=== PATIENT | male | born 1940 | race Caucasian/White ===

== ENCOUNTER → 2019-06-12 | Outpatient (CLI) | payer MEDICARE, OTHER, SELFPAY ==
[2019-06-12 08:11] VITALS: BMI 30.9
--- NOTE | 2019-06-12 08:30 | RAD_ITS ---
STUDY: X-RAY - LEFT HAND, ATTENTION THIRD FINGER REASON FOR EXAM: Male, 78 years old. Pain following injury. TECHNIQUE: 3 view(s) of the finger were obtained. COMPARISON: None. FINDINGS: Normal metacarpal head. Normal metacarpophalangeal joint. Normal proximal phalanx. Normal middle phalanx. Normal distal phalanx. Normal proximal interphalangeal joint. Normal distal interphalangeal joint. Soft tissue swelling. RAD/Finger(s) Min 2 Views IMPRESSION: Soft tissue swelling. Electronically Signed: Lionel Emmanuel, at 9:17 EDT , Service support ,
== END | disposition home or self-care (01) ==
LOC: HPRAD 08:27
PROVIDERS: Family Provider Internal Medicine; PCP Internal Medicine; Referring Provider Physician Assistant; Visit Provider Physician Assistant
DX: S69.92XA Unspecified injury of left wrist, hand and finger(s), initial encounter (principal)
CPT/HCPCS: 73140

== ENCOUNTER 2020-02-29 01:32 | Inpatient (IN) | payer MEDICARE, OTHER, SELFPAY ==
[2020-01-13 08:59] VITALS: BMI 29.0
[2020-02-29] VITALS (15 sets, daily range): BP systolic 137–175; BP diastolic 67–92; PULSE 61–97; RESP 15–18; TEMP 36.6–37.4; O2SAT 94–99; BMI 29.0; BMI 29.5
--- NOTE | 2020-02-29 01:47 | EKG12_ITS ---
Test Reason : CP Blood Pressure : / mmHG Vent. Rate : 062 BPM Atrial Rate : 062 BPM P-R Int : 196 ms QRS Dur : 096 ms QT Int : 410 ms P-R-T Axes : 061 -07 026 degrees QTc Int : 416 ms Sinus rhythm with occasional Premature ventricular complexes Otherwise normal ECG Confirmed by ANMOL AMEZCUA, SABRINA ([id number]), map editor JOEL MEDEIROS ([id number]) on 03/02/2020 9:00:01 AM Referred By: SHYANN Confirmed By:SABRINA COREA MD
--- NOTE | 2020-02-29 01:47 | CT_ITS ---
STUDY: CT ABDOMEN AND PELVIS WITHOUT CONTRAST REASON FOR EXAM: Male, 79 years old patient with epigastric pain with nausea and vomiting since 5 pm. Past surgical history of appendectomy. RADIATION DOSAGE (If Supplied By Facility): CTDIvol = ( 12.25 ) mGy, DLP = ( 633.74 ) mGycm TECHNIQUE: Transaxial images were obtained from the dome of the diaphragm to the symphysis pubis without oral contrast, and without intravenous contrast. Sagittal and coronal images were reconstructed. Individualized dose optimization techniques were used for this CT. COMPARISON: Prior comparison studies are not available for review at this time. FINDINGS: There is bilateral basilar heterogeneous ground glass attenuation in addition to subsegmental atelectasis. The visualized portions of the heart are within normal limits. Normal liver. Normal gallbladder and extrahepatic biliary system. Normal spleen. There is diffuse enlargement of the pancreas with silvana-pancreatic edema suggesting acute pancreatitis. There appears to be peripancreatic fluid. There is acute inflammation adjacent to the pancreas. Normal bilateral adrenal glands. There is an exophytic cyst arising from lower pole right kidney measuring approximately 3.8 cm in greatest dimension. There is no evidence for hydronephrosis, hydroureter or radiopaque ureteral calculus. Normal left kidney. There is fluid filled stomach. There appears to be an ileus as well as abnormal thickening of the [place] of the duodenum probably reflexive and related to the acute pancreatitis. There is no evidence for dilated bowel or pneumoperitoneum. The small bowel otherwise has a normal appearance. Stool is visible throughout the colon with scattered diverticula. There are surgical clips in the region of the appendix consistent with a prior appendectomy. There is minimal atherosclerotic calcification of the abdominal aorta with elongation and tortuosity, but without a demonstrated aneurysm. There is venous distention of the inferior vena cava (IVC). Normal retroperitoneum. Normal urinary bladder. Normal visualized prostate gland. Normal abdominal wall. There are diffuse degenerative changes of the visualized lumbar spine. There is severe acquired canal stenosis at L4-5. CT/Abdomen/Pelvis without Cont IMPRESSION: 1. CT findings are consistent with acute pancreatitis with associated ileus of the duodenum. 2. Bilateral basilar dependent and subsegmental atelectasis. Electronically Signed: Adriana Ogden MD at 3:14 EDT , Service support ,
--- NOTE | 2020-02-29 01:48 | ED.VIS.GEN ---
History of Present Illness Chief Complaint: Abd Pain Informant: Patient Narrative: He stated he had gradual onset of diffuse abdominal pain. He describes an aching sensation. Moderate in severity. He tried Tums and NSAIDs with minimal relief. He had one episode of emesis. Normal bowel movements. History of remote appendectomy. No history of bowel obstruction. It is diffuse in nature. It radiates into his chest to some degree. Denies any urinary symptoms. No other associated symptoms. He is never had a thing like this before. 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 Comment: RFA 03/17/2008 (2) Essential (primary) hypertension Status: Chronic Past Medical History - Allergies and Home Meds Allergies/Adverse Reactions: Allergies Penicillins Allergy (Verified 02/29/20 01:40) Unknown Sulfa (Sulfonamide Antibiotics) Allergy (Verified 02/29/20 01:40) Unknown Primary Care Physician: Hector Castro MD [Primary Care Provider] - Prior records reviewed: Yes Past Medical History: - - See problem list Surgical History: appendectomy Lives: With Family Smoking Status: Never smoker Alcohol: None Drugs: None - Family History Maternal Family History: Family History (Last Reviewed 01/13/20 @ 09:[address] Rich Mendoza MD) Mother CAD (coronary artery disease) Father Cancer Family History: Reports: No pertinent history Review of Systems General: Denies: Chills, Fever, Sweats Eyes: Denies: Visual changes - bilaterally, Diplopia ENT: Denies: Rhinorrhea, Sore throat Cardiovascular: Reports: Chest pain. Denies: Palpitations Respiratory: Denies: Dyspnea, Cough, Dyspnea on exertion Gastrointestinal: Reports: Abdominal pain, Nausea, Vomiting. Denies: Diarrhea, Melena, Hematochezia Genitourinary: Denies: Dysuria, Hematuria, Frequency Musculoskeletal: Denies: Back pain, Extremity Pain Skin: Denies: Rash, Wounds Neurological: Denies: Headache, Weakness, Numbness Physical Exam Vital Signs/Narrative: Vital Signs Temp Pulse Resp BP 02/29/20 01:34 98.5 F 64 15 158/76 H General: Well nourished, Well developed, No Acute Distress Head: Normocephalic, Atraumatic Eyes: Perrl, EOMI ENT: Moist mucous membranes, No rhinorrhea Neck: Supple, Nontender Cardiovascular: Regular rate, Regular rhythm, No murmurs Respiratory: No distress, CTA bilaterally, Chest nontender Abdomen: Soft, Nondistended, Normal bowel sounds, Tender - Diffuse tenderness throughout the whole abdomen. Negative for: Guarding, Rebound tenderness, Mass Back: Nontender, Normal Inspection Extremities: Nontender, No edema Skin: Normal color, No rash Neurological: Alert, Oriented x3, Cranial nerves II-XII grossly intact, Normal Strength, Normal Sensation Psychological: Normal affect, Normal Mood Diagnostic/Tx/Re-eval - Medical Decision Making Patient given IV fluids Zofran and morphine. Lab work and CT abdomen pelvis as well as EKG obtained. Lab work shows an elevation in his white blood cell count and a acute pancreatitis with lipase greater than 20,000. He also has an associated bump in his LFTs including bilirubin. This may be secondary to a gallstone that is not seen on CAT scan. CT shows acute pancreatitis with associated ileus with inflammatory changes. The patient does drink 2 beers per day chronically. No history of pancreatitis or alcoholism. He does still have his gallbladder. It is conceivable that he has a gallstone pancreatitis. However gallbladder was visualized on CAT scan and appears to be normal with no stones seen. Patient discussed with the hospitalist. He will be admitted. He will likely need further evaluation as an inpatient including possible ERCP versus MRCP versus ultrasound to diagnose a gallstone related pancreatitis. ED Disposition - Plan for ED Patient: Disposition: Acute Care Hospital [facility] Diagnosis: Acute pancreatitis, Transaminitis, Ileus
[2020-02-29] MEDS: Ondansetron 4 MG/2 ML Vial IV (02:08)
[2020-02-29] MEDS: Morphine 4 MG/ML Syringe IV (02:13)
[2020-02-29 02:26] LABS: Absolute Lymphocyte Count 0.42 X10^3/uL (0.83-4.51); Absolute Neutrophil Count 10.6 X10^3/uL (2.0-7.7); Basophil# 0.02 X10^3/uL; Basophil% 0.2 % (0-1); Eosinophil# 0.01 X10^3/uL; Eosinophils% 0.1 % (0-5); Hematocrit 43.1 % (40-54); Hemoglobin 14.8 g/dL (13.0-16.5); Lymphocyte # 0.42 X10^3/ul (4.0); Lymphocyte % 3.6 % (19-41); Mean Corp Hgb Conc 34.3 g/dL (32-36); Mean Corpuscular Hgb 32.7 pg (27.0-32.0); Mean Corpuscular Volume 95.4 fL (80-94); Mean Platelet Vol. 10.9 fl (6.2-12.0); Monocyte# 0.62 X10^3/uL; Monocyte% 5.3 % (0-10); NRBC Flagged by Analyzer 0 % (0-5); Neutrophil # 10.56 X10^3/uL (2.7-7.7); Neutrophil % 90.5 % (47-70); POSITIVE DIFFERENTIAL YES; Platelet Count 144 K/mm3 (150-450); RBC Distribution Width CV 12.9 % (11.6-14.6); RBC Distribution Width SD 44.8 fl (35.1-43.9); Red Blood Count 4.52 M/mm3 (4.6-6.2); White Blood Count 11.7 K/mm3 (4.4-11.0)
[2020-02-29 02:54] LABS: Bacteria 0 SEEN /hpf (None Seen); Mucous, Urine 0 SEEN /hpf (<or=2+); Red Blood Cells-Urine 0 SEEN /hpf (0-5); Squamous Epithelial Cells - UA 0 SEEN /hpf (0-5); White Blood Cells 0 SEEN /hpf (0-5)
[2020-02-29 02:55] LABS: ALB/GLOB Ratio 1.2 RATIO (0.9-2.4); AST(SGOT) 480 U/L (15-37); Alanine Aminotransfer ALT/SGPT 401 U/L (16-61); Alkaline Phosphatase 121 U/L (45-117); Anion Gap 6 (5-15); BUN 17 mg/dL (7-18); BUN/Creat Ratio 17.4 RATIO (10-20); Calcium,Total 9.2 mg/dL (8.5-10.1); Chloride 107 mmol/L (98-107); Creatinine, Serum 0.98 mg/dL (0.70-1.30); EST Glomerular Filtration Rate 79 mL/min (>60); Est Glom Filt Rate - Afr Amer 96 mL/min (>60); Estimated Creatinine Clearance 69.29 ml/min; Globulin 3.2 g/dL (2.2-4.2); Glucose 169 mg/dL (74-106); Lipase 21718 U/L (73-393); Potassium 3.6 mmol/L (3.5-5.1); Protein, Total 7.2 g/dL (6.4-8.2); Sodium Level 139 mmol/L (136-145)
[2020-02-29 02:55] LABS: Color, Urine Yellow (Yellow); Glucose, Dipstick 50 mg/dl (Normal); Ketone-Dipstick 15 mg/dl (Negative); Leukocyte Esterase-Dipstick Negative /ul (Negative); Nitrite-Dipstick Negative (Negative); Occult Blood-Urine 10 /ul (Negative); Protein-Dipstick 30 mg/dl (Negative); Urine Bilirubin Dipstick Negative (Negative); Urine Clarity Sl. Cloudy (Clear); Urine Urobilinogen 1 mg/dl (Normal)
[2020-02-29 02:56] LABS: Differential Indicated SCAN CRITERIA MET
[2020-02-29 03:02] LABS: Amorphous Sediment 2+
[2020-02-29] MEDS: 0.9% Normal Saline 1,000 ML 125 ML IV (03:02)
[2020-02-29 03:20] LABS: Differential Comment SCANNED
--- NOTE | 2020-02-29 03:45 | PCM.HP.STD ---
Problem List (1) Pancreatitis Status: Acute History of Present Illness Date of Admission: 02/29/20 Chief Complaint: ABDOMINAL PAIN The patient is a 79 year old M with a significant history of hypertension; and narcolepsy who presented to emergency department with excruciating abdominal pain. His symptoms started few hours before presentation. His pain started from his lower chest wall and progressed to his abdomen. His pain is of 2 types a constant aching pain; and episodic sharp pain. His pain increases with taking a deep breath and by touch. He denies any ameliorating factors. Associated with symptoms is nausea and vomiting. At the emergency department his lipase was elevated. CT of the abdomen and pelvis showed a pancreatitis with ileus of the duodenum. Past Medical History Past Medical History (Chronic Problems): Chronic Problems (Last Reviewed 01/13/20 @ 09:[address] Rich Mendoza MD) AVNRT (AV castro re-entry tachycardia) (Chronic) RFA 03/17/2008 Essential (primary) hypertension (Chronic) Medical History: Medical History (Last Reviewed 02/29/20 @ 04:[address] 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 [Ecotrin] 81 mg PO MOWEFR 06/10/17 ascorbic acid (vitamin C) 500 mg 500 mg PO DAILY 06/12/19 capsule,extended release modafinil 200 mg tablet 200 mg PO DAILY 01/13/20 Surgical History: Surgical History (Last Reviewed 02/29/20 @ 04:[address] Jakub Powell MD) H/O hernia repair Z98.890, Z87.19 H/O knee surgery Z98.890 H/O prostatectomy Z90.79 History of radiofrequency ablation procedure for cardiac arrhythmia Onset Date: 03/17/08 Z98.890 Surgical History: appendectomy Lives: With Family Smoking Status: Never smoker Alcohol: None Drugs: None - *Family History Maternal Family History: Family History (Last Reviewed 02/29/20 @ 04:[address] Jakub Powell MD) Mother CAD (coronary artery disease) Father Cancer History Items: No pertinent history Review of Systems Constitutional: Denies: Chills, Fever, Weight Change HEENT: Denies: Head Aches, Sinus Congestion, Sinus Drainage Cardiovascular: Reports: Chest Pain. Denies: Palpitations Respiratory: Denies: Cough, Shortness of breath at rest, Sputum production Gastrointestinal: Reports: Abdominal Pain, Nausea, Vomiting Genitourinary: Denies: Dysuria Musculoskeletal: Denies: Joint Pain, Joint Tenderness Skin: Denies: Rash, Wounds Neurological: Denies: Numbness, Tingling, Focal weakness Psychiatric: Denies: Anxiety, Depression, Homicidal Ideations, Suicidal Ideations Hematologic/ Lymphatic: Denies: Easy Bruising, Easy Bleeding VTE Information - Inpt Only VTE Present on Admission: No VTE Mechan Device Prophylaxis: SCD's VTE Pharm Prophylaxis ordered?: No Patient Problems: Active and Suspected Problems (Last Reviewed 01/13/20 @ 09:[address] Rich Mendoza MD) Acute pancreatitis (Acute) Transaminitis (Acute) Ileus (Acute) Pancreatitis (Acute) - Physical Exam Vitals/I&O's: Vital Signs Temp Pulse Resp BP Pulse Ox 98.5 F 74 15 153/88 H 98 02/29/20 01:34 02/29/20 03:44 02/29/20 03:44 02/29/20 03:44 02/29/20 03:44 Oxygen Delivery Method Room Air Weight: 97 kg Body Mass Index (BMI) 29.0 General: Alert, Oriented x3, Cooperative HEENT: Atraumatic, PERRLA, EOMI, Normocephalic Neck: Supple, No JVD, Negative Carotid Bruits Lungs: Clear to auscultation, Normal air movement Cardiovascular: Regular rate, No murmurs Abdomen: Bowel Sounds Present, Soft, Non Tender Extremities: No edema, Capillary Refill Less than 3 Seconds Skin: No rashes, No breakdown Musculoskeletal: No Tenderness to Palpation of Joints or Extremities Neurological: Cranial nerves II-XII grossly intact Psych/Mental Status: Normal Affect, Appropriate Laboratory Results 02/29/20 02:15: WBC 11.7 H, RBC 4.52 L, Hgb 14.8, Hct 43.1, MCV 95.4 H, MCH 32.7 H, MCHC 34.3, RDW Std Deviation 44.8 H, RDW Coeff of [place] 12.9, Plt Count 144 L, MPV 10.9, Immature Gran % (Auto) 0.300, Neut % (Auto) 90.5 H, Lymph % (Auto) 3.6 L, [place] % (Auto) 5.3, Eos % (Auto) 0.1, Baso % (Auto) 0.2, Absolute Neuts (auto) 10.6 H, Absolute Lymphs (auto) 0.42 L, Nucleated RBC % 0, Differential Comment SCANNED 02/29/20 02:15: Sodium 139, Potassium 3.6, Chloride 107, Carbon Dioxide 26.0, Anion Gap 6, BUN 17, Creatinine 0.98, Estim Creat Clear Calc 69.29, Est GFR (MDRD) Af Amer 96, Est GFR (MDRD) Non-Af 79, BUN/Creatinine Ratio 17.4, Glucose 169 H, Calcium 9.2, Total Bilirubin 2.30 H, AST 480 H, ALT 401 H, Alkaline Phosphatase 121 H, Troponin I < 0.015, Total Protein 7.2, Albumin 4.0, Globulin 3.2, Albumin/Globulin Ratio 1.2, Lipase 03101 H 02/29/20 02:40: Urine Color Yellow, Urine Clarity Sl. Cloudy, Urine pH 8.0, Ur Specific [place] 1.020, Urine Protein 30 H, Urine Glucose (UA) 50 H, Urine Ketones 15 H, Urine Occult Blood 10 H, Urine Nitrite Negative, Urine Bilirubin Negative, Urine Urobilinogen 1 H, Ur Leukocyte Esterase Negative, Urine RBC 0 SEEN, Urine WBC 0 SEEN, Ur Squamous Epith Cells 0 SEEN, Amorphous Sediment 2+, Urine Bacteria 0 SEEN, Urine Mucus 0 SEEN Current Medications Sodium Chloride () 1,000 mls @ 125 mls/hr IV .Q8H NATALI Last Admin: 02/29/20 03:02 Dose: 125 mls/hr Documented by: Assessment/Plan All Active Problems (Last Reviewed 01/13/20 @ 09:[address] Rich Mendoza MD) Acute pancreatitis (Acute) Transaminitis (Acute) Ileus (Acute) Pancreatitis (Acute) Atypical chest pain (Resolved) Sinus bradycardia (Resolved) The patient is a 79 year old M with a significant history of hypertension; and narcolepsy who presented to emergency department with excruciating abdominal pain; found to have elevated liver enzymes; elevated lipase; and radiographic findings of acute pancreatitis with ileus of the duodenum. Acute pancreatitis with ileus of the duodenum Review of imaging department labs showed lipase level of 21,718. Patient with mild leukocytosis. Likely secondary to gall stone. We will keep patient n.p.o. Received normal saline the emergency department. Lactated Ringer's ordered. Morphine as needed. Zofran PRN. Will get ultrasound of gallbladder. We will get a lipid panel. Will consult general surgery. Patient is drinks 1-2 shots of martini daily at times he drinks 3-4 shots. Less likely from alcoholism. Hold aspirin will get PT/INR. Narcolepsy On home modafinil hold for now secondary to n.p.o. status. Hypertension On home amlodipine. Hold for now secondary n.p.o. status.. Hydralazine ordered. Asthma Stable PRN albuterol ordered. DVT prophylaxis SCD for now. No chemical thromboprophylaxis because of possible surgical intervention. Inpatient E&M: 12137 Init Hosp L3
[2020-02-29] MEDS: 0.9% Saline Lock 10 ML Syringe IV (05:06)
[2020-02-29] MEDS: Lactated Ringers 1,000 ML 150 ML IV ×2 (05:08→15:42)
[2020-02-29] MEDS: Morphine 2 MG/ML Syringe IV ×3 (05:12→13:50)
[2020-02-29 05:35] LABS: Absolute Lymphocyte Count 0.37 X10^3/uL (0.83-4.51); Absolute Neutrophil Count 12.1 X10^3/uL (2.0-7.7); Basophil# 0.02 X10^3/uL; Basophil% 0.1 % (0-1); Eosinophil# 0.06 X10^3/uL; Eosinophils% 0.4 % (0-5); Hematocrit 43.1 % (40-54); Hemoglobin 14.2 g/dL (13.0-16.5); Lymphocyte # 0.37 X10^3/ul (4.0); Lymphocyte % 2.7 % (19-41); Mean Corp Hgb Conc 32.9 g/dL (32-36); Mean Corpuscular Hgb 32.1 pg (27.0-32.0); Mean Corpuscular Volume 97.3 fL (80-94); Mean Platelet Vol. 10.8 fl (6.2-12.0); Monocyte% 6.7 % (0-10); NRBC Flagged by Analyzer 0 % (0-5); Neutrophil # 12.11 X10^3/uL (2.7-7.7); Neutrophil % 89.7 % (47-70); POSITIVE DIFFERENTIAL YES; Platelet Count 148 K/mm3 (150-450); RBC Distribution Width CV 12.9 % (11.6-14.6); Red Blood Count 4.43 M/mm3 (4.6-6.2); White Blood Count 13.5 K/mm3 (4.4-11.0)
[2020-02-29 05:49] LABS: Differential Indicated SCAN CRITERIA MET; International Normalized Ratio 1.1; Prothrombin Time (Protime)PT. 13.7 SECONDS (11.7-14.9)
[2020-02-29 06:26] LABS: ALB/GLOB Ratio 1.2 RATIO (0.9-2.4); AST(SGOT) 637 U/L (15-37); Alanine Aminotransfer ALT/SGPT 566 U/L (16-61); Albumin, Serum 3.7 g/dL (3.2-5.0); Alkaline Phosphatase 125 U/L (45-117); Anion Gap 5 (5-15); BUN 17 mg/dL (7-18); BUN/Creat Ratio 18.7 RATIO (10-20); Calcium,Total 8.4 mg/dL (8.5-10.1); Chloride 109 mmol/L (98-107); Cholesterol 126 mg/dL (200); Creatinine, Serum 0.91 mg/dL (0.70-1.30); EST Glomerular Filtration Rate 86 mL/min (>60); Est Glom Filt Rate - Afr Amer 104 mL/min (>60); Estimated Creatinine Clearance 74.62 ml/min; Glucose 165 mg/dL (74-106); High Density Lipoprotein 47 mg/dL; Lipase 15140 U/L (73-393); Potassium 3.8 mmol/L (3.5-5.1); Protein, Total 6.7 g/dL (6.4-8.2); Sodium Level 138 mmol/L (136-145); Triglycerides 39 mg/dL; Very Low Density Lipoprotein 8 mg/dL (5-40)
[2020-02-29 06:35] LABS: Differential Comment SCANNED
--- NOTE | 2020-02-29 07:25 | EKG12_ITS ---
Test Reason : PRE-OP Blood Pressure : / mmHG Vent. Rate : 077 BPM Atrial Rate : 077 BPM P-R Int : 178 ms QRS Dur : 090 ms QT Int : 380 ms P-R-T Axes : 064 -33 027 degrees QTc Int : 430 ms Normal sinus rhythm Left axis deviation Abnormal ECG When compared with ECG of 11-JUN-2017 05:52, QT has lengthened Confirmed by ANMOL AMEZCUA, SABRINA ([id number]), editor map JOEL MEDEIROS ([id number]) on 03/02/2020 11:02:08 AM Referred By: KAYDEN Confirmed By:SABRINA COREA MD
--- NOTE | 2020-02-29 07:58 | PCM.CONS.GEN ---
Problem List (1) Obstructive jaundice Status: Acute (2) Acute pancreatitis Status: Acute Qualifiers: Pancreatitis type: biliary Acute pancreatitis complication: unspecified Qualified Code(s): K85.10 - Biliary acute pancreatitis without necrosis or infection Reason for Consult Date of Consultation: 02/29/20 Reason for Consultation: Obstructive jaundice and gallstone pancreatitis History of Present Illness: The patient is a 79 year old M presents with epigastric pain. Patient is also having nausea and did vomit 1 time. He is not having any fevers or chills. This is never happened in the past. Pain does not radiate. Past Medical History Past Medical History (Chronic Problems): Chronic Problems (Last Reviewed 02/29/20 @ 04:[address] Jakub Powell MD) AVNRT (AV castro re-entry tachycardia) (Chronic) RFA 03/17/2008 Essential (primary) hypertension (Chronic) Medical History: Medical History (Last Reviewed 02/29/20 @ 04:[address] 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 [Ecotrin] 81 mg PO MOWEFR 06/10/17 ascorbic acid (vitamin C) 500 mg 500 mg PO DAILY 06/12/19 capsule,extended release modafinil 200 mg tablet 200 mg PO DAILY 01/13/20 Surgical History: Surgical History (Last Reviewed 02/29/20 @ 04:[address] Jakub Powell MD) H/O hernia repair Z98.890, Z87.19 H/O knee surgery Z98.890 H/O prostatectomy Z90.79 History of radiofrequency ablation procedure for cardiac arrhythmia Onset Date: 03/17/08 Z98.890 Surgical History: appendectomy Lives: With Family Smoking Status: Never smoker Alcohol: None Drugs: None - *Family History Maternal Family History: Family History (Last Reviewed 02/29/20 @ 04:[address] Jakub Powell MD) Mother CAD (coronary artery disease) Father Cancer History Items: No pertinent history Review of Systems Constitutional: Denies: Anorexia, Fever HEENT: Denies: Difficulty Swallowing Cardiovascular: Denies: Chest Pain Respiratory: Denies: Cough, Shortness of Breath Gastrointestinal: Reports: Abdominal Pain, Nausea, Vomiting. Denies: Diarrhea, Hematemesis, Hematochezia Genitourinary: Denies: Dysuria Musculoskeletal: Denies: Joint Tenderness Skin: Denies: Lesions, Rash Neurological: Denies: Balance problems Hematologic/ Lymphatic: Denies: Anemia Patient Problems: Active and Suspected Problems (Last Reviewed 02/29/20 @ 04:[address] Jakub Powell MD) Acute pancreatitis (Acute) Transaminitis (Acute) Ileus (Acute) Pancreatitis (Acute) Obstructive jaundice (Acute) - Physical Exam Vitals/I&O's: Vital Signs Temp Pulse Resp BP Pulse Ox 98.3 F 61 18 156/92 H 94 02/29/20 04:39 02/29/20 04:39 02/29/20 04:39 02/29/20 04:39 02/29/20 07:38 Oxygen Delivery Method Room Air Weight: 217 lb 13.067 oz Body Mass Index (BMI) 29.5 Intake and Output for Last 24 Hours 02/27/20 02/28/20 02/29/20 23:59 23:59 23:59 Intake Total 225 / 225 Balance 225 / 225 General: Alert, Oriented x3 Neck: No JVD Lungs: Normal air movement, No rhonchi Abdomen: Soft, Non-Distended, Tender - Tender in the upper abdomen with no guarding or rebound Musculoskeletal: No Muscle Wasting Neurological: Cranial nerves II-XII grossly intact Psych/Mental Status: Normal Affect Laboratory Results 02/29/20 02:15: WBC 11.7 H, RBC 4.52 L, Hgb 14.8, Hct 43.1, MCV 95.4 H, MCH 32.7 H, MCHC 34.3, RDW Std Deviation 44.8 H, RDW Coeff of [place] 12.9, Plt Count 144 L, MPV 10.9, Immature Gran % (Auto) 0.300, Neut % (Auto) 90.5 H, Lymph % (Auto) 3.6 L, [place] % (Auto) 5.3, Eos % (Auto) 0.1, Baso % (Auto) 0.2, Absolute Neuts (auto) 10.6 H, Absolute Lymphs (auto) 0.42 L, Nucleated RBC % 0, Differential Comment SCANNED 02/29/20 02:15: Sodium 139, Potassium 3.6, Chloride 107, Carbon Dioxide 26.0, Anion Gap 6, BUN 17, Creatinine 0.98, Estim Creat Clear Calc 69.29, Est GFR (MDRD) Af Amer 96, Est GFR (MDRD) Non-Af 79, BUN/Creatinine Ratio 17.4, Glucose 169 H, Calcium 9.2, Total Bilirubin 2.30 H, AST 480 H, ALT 401 H, Alkaline Phosphatase 121 H, Troponin I < 0.015, Total Protein 7.2, Albumin 4.0, Globulin 3.2, Albumin/Globulin Ratio 1.2, Lipase 14146 H 02/29/20 02:40: Urine Color Yellow, Urine Clarity Sl. Cloudy, Urine pH 8.0, Ur Specific [place] 1.020, Urine Protein 30 H, Urine Glucose (UA) 50 H, Urine Ketones 15 H, Urine Occult Blood 10 H, Urine Nitrite Negative, Urine Bilirubin Negative, Urine Urobilinogen 1 H, Ur Leukocyte Esterase Negative, Urine RBC 0 SEEN, Urine WBC 0 SEEN, Ur Squamous Epith Cells 0 SEEN, Amorphous Sediment 2+, Urine Bacteria 0 SEEN, Urine Mucus 0 SEEN 02/29/20 05:10: Sodium 138, Potassium 3.8, Chloride 109 H, Carbon Dioxide 24.0, Anion Gap 5, BUN 17, Creatinine 0.91, Estim Creat Clear Calc 74.62, Est GFR (MDRD) Af Amer 104, Est GFR (MDRD) Non-Af 86, BUN/Creatinine Ratio 18.7, Glucose 165 H, Calcium 8.4 L, Total Bilirubin 2.50 H, AST 637 H, ALT 566 H, Alkaline Phosphatase 125 H, Total Protein 6.7, Albumin 3.7, Globulin 3.0, Albumin/Globulin Ratio 1.2, Triglycerides 39, Cholesterol 126, LDL Cholesterol 71, VLDL Cholesterol 8, HDL Cholesterol 47, Lipase 07872 H 02/29/20 05:10: WBC 13.5 H, RBC 4.43 L, Hgb 14.2, Hct 43.1, MCV 97.3 H, MCH 32.1 H, MCHC 32.9, RDW Std Deviation 46.0 H, RDW Coeff of [place] 12.9, Plt Count 148 L, MPV 10.8, Immature Gran % (Auto) 0.400, Neut % (Auto) 89.7 H, Lymph % (Auto) 2.7 L, [place] % (Auto) 6.7, Eos % (Auto) 0.4, Baso % (Auto) 0.1, Absolute Neuts (auto) 12.1 H, Absolute Lymphs (auto) 0.37 L, Nucleated RBC % 0, Differential Comment SCANNED 02/29/20 05:10: PT 13.7, INR 1.1 02/29/20 07:38: COVID-19 (LAURA) Pending Clinical Impression(s) from Imaging Studies Abdomen/Pelvis CT 02/29/20 01:47 IMPRESSION: 1. CT findings are consistent with acute pancreatitis with associated ileus of the duodenum. 2. Bilateral basilar dependent and subsegmental atelectasis. Electronically Signed: Adriana Ogden MD at 3:14 EDT , Service support , Current Medications Albuterol Sulfate (Ventolin Aerosols) 2.5 mg INHALATION Q2H PRN PRN PRN Reason: Shortness of Breath/Wheezing Dextrose (D50w Syringe) 0 gm IV X1 PRN; Protocol PRN Reason: Hypoglycemia Glucagon () 1 mg IM .X1 PRN PRN Reason: Hypoglycemia Hydralazine HCl (Apresoline Iv) 5 mg IV Q4H PRN PRN PRN Reason: SBP > 160 Lactated Ringer's () 1,000 mls @ 150 mls/hr IV .Q6H40M NATALI Last Admin: 02/29/20 05:08 Dose: 150 mls/hr Documented by: Ciprofloxacin (Cipro) 400 mg in 200 mls @ 200 mls/hr IV Q12 NATALI Metronidazole (Flagyl) 500 mg in 100 mls @ 100 mls/hr IV Q8 NATALI Morphine Sulfate () 2 mg IV Q3H PRN PRN PRN Reason: Pain Score 6-10/10 Last Admin: 02/29/20 05:12 Dose: 2 mg Documented by: Ondansetron HCl (Zofran) 4 mg IV Q8H PRN PRN PRN Reason: NAUSEA/VOMITING Sodium Chloride (0.9% Nacl (Sterile) Posiflush) 10 - 40 ml IV UD PRN PRN Reason: Port access or dressing change Sodium Chloride () 10 - 40 ml IV UD PRN PRN Reason: Midline Flush Last Admin: 02/29/20 05:06 Dose: 10 ml Documented by: Sodium Chloride () 10 - 40 ml IV UD PRN PRN Reason: SALINE FLUSH Assessment/Plan All Active Problems (Last Reviewed 02/29/20 @ 04:[address] Jakub Powell MD) Acute pancreatitis (Acute) Transaminitis (Acute) Ileus (Acute) Pancreatitis (Acute) Obstructive jaundice (Acute) Atypical chest pain (Resolved) Sinus bradycardia (Resolved) 79-year-old male with acute pancreatitis and obstructive jaundice 1. The patient has upper abdominal pain with elevated lipase. He had elevated liver enzymes when he was admitted and they have continued to rise this morning. White count has risen also. I believe the patient has gallstone pancreatitis with common bile duct obstruction. I will take the patient this morning for ERCP. I will start him on antibiotics. Patient will need laparoscopic cholecystectomy before discharge. 2. I discussed ERCP in detail with the patient. I discussed the risk of bleeding, infection, perforation of the bile duct or bowel, worsening of pancreatitis. I also described the risk of having to place a stent. The patient understands all questions were answered. Antoine Cline MD Pager: [facility] [address] [place] [address] [address] [place] [address] Office:
[2020-02-29] MEDS: Ciprofloxacin 400 MG/200 ML BAG 200 MG IV (08:01)
--- NOTE | 2020-02-29 08:30 | RAD_ITS ---
STUDY: FLUOROSCOPY ERCP BILIARY DUCTAL SYSTEM REASON FOR EXAM: Male, 79 years old. hx acute pancreatitis. FLUOROSCOPY TIME (if supplied): ( 1:10 ) minutes/seconds TECHNIQUE: 3 fluoroscopic images. COMPARISON: Abdomen and pelvic CT exam of February 29, 2020 FINDINGS: Retrograde endoscopic cannulation of the common bile duct and contrast filling demonstrates a stone packed gallbladder and multiple filling defects in the common bile duct. At the completion of the procedure, the filling defects are removed with adequate decompression of the common bile duct. RAD/ERCP Biliary Only IMPRESSION: ERCP demonstration and removal of common duct stones. Electronically Signed: Liliam Yost MD at 15:52 EDT , Service support ,
--- NOTE | 2020-02-29 09:00 | GALL_PTH ---
PATIENT: KASSI MARCIAL LOC: MS3 U#:[id number] AGE/SX: 79/M ROOM: MD321 RE02/29/[address]: Dr. Ricardo Ribera DO : 1940 BED: 1 DIS: 03/02/2020 SPEC #: [id number] RECD: 03/01/20 12:46 STATUS: JASWANT REOdell #: [id number] FRIDA: 02/29/20 09:[address]: Antoine Cline DEPT: SURGICAL PATHOLOGY RECD BY: Ada Crespo ENTERED: 03/02/20 09:22 SP TYPE: GALLBLADDE OTHR DR: MD Dr. Jakub Marley MD Dr. Mark Tereletsky, DO Dr. Victor Velasquez, MD Tissues: Gallbladder, NOS Procedures: Surgery Specimen Level III Comments: @ Ordering doctor for SUIII edited from to @ by NED at 03/03/20 0833 @ Submitting doctor edited from to @ by RGOOD at 03/03/20 0833 HEADER OPERATION: Laparoscopic cholecystectomy with IOC PRE-OP DIAGNOSIS: Obstructive jaundice; pancreatitis TISSUE SUBMITTED: Gallbladder MICROSCOPIC DIAGNOSIS Gallbladder, cholecystectomy: Chronic cholecystitis and cholelithiasis. AM:shantel 03/03/20 MICROSCOPIC DESCRIPTION Slides are reviewed. GROSS DESCRIPTION Received is one container labeled with the patient's name and designated gallbladder. The specimen consists of a gallbladder measuring 9 x 5 x 4 cm. The external surface is smooth and glistening. Focally, it is granular, hemorrhagic and contains cautery artifact. The lumen of the gallbladder contains yellow-green mucoid bile and multiple calculi and fragments of calculi that are chalky, yellow-white ranging in size from <0.1 to 1.5 cm in greatest dimension. The mucosa is bile-stained and without any mass lesions. The gallbladder wall averages 0.1 cm in thickness and is free of mass lesions. Power Plant Supervisor sections of the gallbladder and the cystic duct at margin of resection are submitted in one cassette. / AM:shantel 03/02/20 TC:3 CPT: 09635
--- NOTE | 2020-02-29 09:07 | SUR.PREOP ---
pt. arrived to Endo for ERCP, however, COVID test is still pending. anesthesia wishes to wait until results are back before proceeding. pt. taken to PACU and connected to monitor. MSO4 given for pain per pt. request. pt's in waiting room; dr. Cline has spoken to and updated her.
[2020-02-29 09:28] LABS: Probe Check PASS; Specimen Processing Control PASS
--- NOTE | 2020-02-29 10:23 | PCA ---
pt off floor
--- NOTE | 2020-02-29 10:38 | EKG12_ITS ---
Test Reason : RHYTHM CHANGE Blood Pressure : / mmHG Vent. 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 rate has increased BY 39 BPM QT has lengthened Confirmed by ANMOL AMEZCUA, SABRINA ([id number]), social media editor JOEL MEDEIROS ([id number]) on 03/02/2020 11:09:57 AM Referred By: REG Confirmed By:SABRINA COREA MD
--- NOTE | 2020-02-29 10:42 | OP.ERCP_ITS ---
Patient Name: Gerald Aceves Procedure Date: 02/29/2020 8:35 AM Date of : 1940 Age: 79 Procedure: ERCP Indications: Jaundice, Elevated liver enzymes, Acute pancreatitis Providers: Antoine Clnie MD Medicines: General Anesthesia Patient Profile: This is a 79 year old male. Refer to note in patient chart for documentation of history and physical. Complications: No immediate complications. Estimated blood loss: Minimal. Procedure: Pre-Anesthesia Assessment: - Prior to the procedure, a History and Physical was performed, and patient medications and allergies were reviewed. The patient's tolerance of previous anesthesia was also reviewed. The risks and benefits of the procedure and the sedation options and risks were discussed with the patient. All questions were answered, and informed consent was obtained. Prior Anticoagulants: The patient has taken no previous anticoagulant or antiplatelet agents. ASA Grade Assessment: I - A normal, healthy patient. After reviewing the risks and benefits, the patient was deemed in satisfactory condition to undergo the procedure. After obtaining informed consent, the scope was passed under direct vision. Throughout the procedure, the patient's blood pressure, pulse, and oxygen saturations were monitored continuously. The [id number] endoscope was introduced through the mouth, and advanced to the duodenum and used to inject contrast into the bile duct. The ERCP was accomplished without difficulty. The patient tolerated the procedure well. Scope In: 10:05:05 AM Scope Out: 10:12:03 AM Total Procedure Duration Time 0 hours 6 minutes 58 seconds Findings: The major papilla was normal. A 0.035 inch x 260 cm straight Dreamwire was passed into the biliary tree. The sphincterotome was passed over the guidewire and the bile duct was then deeply cannulated. Contrast was injected. The lower third of the main bile duct contained filling defect(s) thought to be a stone. Biliary sphincterotomy was made with a monofilament sphincterotome using ERBE electrocautery. There was no post-sphincterotomy bleeding. The biliary tree was swept with a 12 mm balloon starting at the bifurcation. A few stones were removed. No stones remained. Impression: - The major papilla appeared normal. - A filling defect consistent with a stone was seen on the cholangiogram. - Choledocholithiasis was found. Complete removal was accomplished by biliary sphincterotomy and balloon extraction. - A biliary sphincterotomy was performed. - The biliary tree was swept. Recommendation: - Return patient to [facility] for [facility] care. Procedure Code(s): --- Professional --- 85151, Endoscopic retrograde cholangiopancreatography (ERCP); with removal of calculi/debris from biliary/pancreatic duct(s) 63963, 51, Endoscopic retrograde cholangiopancreatography (ERCP); with sphincterotomy/papillotomy Diagnosis Code(s): --- Professional --- K80.50, Calculus of bile duct without cholangitis or cholecystitis without obstruction R17, Unspecified jaundice R74.8, Abnormal levels of other serum enzymes K85.90, Acute pancreatitis without necrosis or infection, unspecified R93.2, Abnormal findings on diagnostic imaging of liver and biliary tract CPT copyright 2017 [employer]. All rights reserved. The codes documented in this report are preliminary and upon label coder review may be revised to meet current compliance requirements. Antoine Cline MD 02/29/2020 10:42:13 AM This report has been signed electronically. Number of Addenda: 0 Note Initiated On: 02/29/2020 8:35 AM
--- NOTE | 2020-02-29 10:42 | OP.CCLET_ITS ---
02/29/2020 Hector Castro [address] [place] [address] Re : ERCP procedure for Gerald Yungwicz Dear Dr. Castro This procedure was performed on Saturday, February 29, 2020. My impressions and recommendations are as follows: Impressions : - The major papilla appeared normal. - A filling defect consistent with a stone was seen on the cholangiogram. - Choledocholithiasis was found. Complete removal was accomplished by biliary sphincterotomy and balloon extraction. - A biliary sphincterotomy was performed. - The biliary tree was swept. Recommendations : - Return patient to [facility] for ongoing care. My findings are described in the full procedure note, which is enclosed. If I can be of further assistance, please feel free to contact me at Doctor phone number(s): , Work: . Sincerely, Antoine Cline MD 02/29/2020 10:42:13 AM This report has been signed electronically.
[2020-02-29] MEDS: hydrALAZINE 20 MG/ML Vial 5 MG IV (13:50)
--- NOTE | 2020-02-29 15:06 | PCM.HOSP.N ---
Hospitalist Note Patient was seen and examined today after his ERCP, I talked briefly with general surgery who performed his ERCP today and removed 2 stones. Patient will need a cholecystectomy but general surgery would like his pancreatitis to stabilize/improve before taking the patient to surgery. I have increased the patient's IV rate, I examined an EKG which was done in recovery today which showed evidence of trigeminy, no ischemic changes however were noted. Patient will remain n.p.o. at this time.
[2020-02-29] MEDS: Lactated Ringers 1,000 ML 175 ML IV (21:06)
[2020-03-01] VITALS (14 sets, daily range): BP systolic 136–173; BP diastolic 80–98; PULSE 77–101; RESP 16–18; TEMP 36.4–38.3; O2SAT 91–100; BMI 29.5
[2020-03-01] MEDS: Lactated Ringers 1,000 ML 175 ML IV ×3 (02:25→14:37)
[2020-03-01 05:57] LABS: Absolute Lymphocyte Count 0.45 X10^3/uL (0.83-4.51); Absolute Neutrophil Count 6.9 X10^3/uL (2.0-7.7); Basophil# 0.03 X10^3/uL; Basophil% 0.4 % (0-1); Eosinophil# 0.02 X10^3/uL; Eosinophils% 0.2 % (0-5); Hematocrit 41.1 % (40-54); Hemoglobin 13.6 g/dL (13.0-16.5); Lymphocyte # 0.45 X10^3/ul (4.0); Lymphocyte % 5.6 % (19-41); Mean Corp Hgb Conc 33.1 g/dL (32-36); Mean Corpuscular Hgb 32.2 pg (27.0-32.0); Mean Corpuscular Volume 97.4 fL (80-94); Mean Platelet Vol. 10.9 fl (6.2-12.0); Monocyte# 0.71 X10^3/uL; Monocyte% 8.8 % (0-10); NRBC Flagged by Analyzer 0 % (0-5); Neutrophil # 6.85 X10^3/uL (2.7-7.7); Neutrophil % 84.6 % (47-70); POSITIVE DIFFERENTIAL YES; Platelet Count 126 K/mm3 (150-450); RBC Distribution Width CV 13.5 % (11.6-14.6); RBC Distribution Width SD 48.1 fl (35.1-43.9); Red Blood Count 4.22 M/mm3 (4.6-6.2); White Blood Count 8.1 K/mm3 (4.4-11.0)
[2020-03-01 06:26] LABS: AST(SGOT) 227 U/L (15-37); Alanine Aminotransfer ALT/SGPT 418 U/L (16-61); Albumin, Serum 3.1 g/dL (3.2-5.0); Alkaline Phosphatase 163 U/L (45-117); Anion Gap 8 (5-15); BUN 12 mg/dL (7-18); Calcium,Total 8.1 mg/dL (8.5-10.1); Chloride 106 mmol/L (98-107); Creatinine, Serum 0.92 mg/dL (0.70-1.30); EST Glomerular Filtration Rate 84 mL/min (>60); Est Glom Filt Rate - Afr Amer 102 mL/min (>60); Glucose 108 mg/dL (74-106); Lipase 2746 U/L (73-393); Potassium 3.3 mmol/L (3.5-5.1); Protein, Total 6.1 g/dL (6.4-8.2); Sodium Level 138 mmol/L (136-145)
[2020-03-01 06:41] LABS: Differential Indicated SCAN CRITERIA MET
[2020-03-01 07:14] LABS: Differential Comment SCANNED
--- NOTE | 2020-03-01 07:31 | PCM.PN.SRG ---
Patient Problems: Active and Suspected Problems (Last Reviewed 02/29/20 @ 04:[address] Jakub Powell MD) Acute pancreatitis (Acute) Transaminitis (Acute) Ileus (Acute) Pancreatitis (Acute) Obstructive jaundice (Acute) Subjective: Patient is doing well with no pain this morning - Physical Exam Vitals/I&O's: Vital Signs Temp Pulse Resp BP Pulse Ox 99.5 F H 93 16 146/80 H 94 03/01/20 02:23 03/01/20 02:23 03/01/20 02:23 03/01/20 02:23 03/01/20 02:23 Oxygen Delivery Method Room Air Weight: 217 lb 13.067 oz Body Mass Index (BMI) 29.5 Intake and Output for Last 24 Hours 02/28/20 02/29/20 03/01/20 23:59 23:59 23:59 Intake Total 2362.50 / 2362.50 930.42 / 930.42 Output Total 400 / 400 Balance 2362.50 / 2362.50 530.42 / 530.42 General: Alert, Oriented x3 Neck: No JVD Lungs: Normal air movement Cardiovascular: Regular rate, Regular Rhythm Abdomen: Soft, Non Tender, Non-Distended Laboratory Results 02/29/20 07:38: COVID-19 ([facility]URA) Negative 02/29/20 10:50: Troponin I < 0.015 03/01/20 05:35: WBC 8.1, RBC 4.22 L, Hgb 13.6, Hct 41.1, MCV 97.4 H, MCH 32.2 H, MCHC 33.1, RDW Std Deviation 48.1 H, RDW Coeff of Alice 13.5, Plt Count 126 L, MPV 10.9, Immature Gran % (Auto) 0.400, Neut % (Auto) 84.6 H, Lymph % (Auto) 5.6 L, [place] % (Auto) 8.8, Eos % (Auto) 0.2, Baso % (Auto) 0.4, Absolute Neuts (auto) 6.9, Absolute Lymphs (auto) 0.45 L, Nucleated RBC % 0, Differential Comment SCANNED 03/01/20 05:35: Sodium 138, Potassium 3.3 L, Chloride 106, Carbon Dioxide 24.0, Anion Gap 8, BUN 12, Creatinine 0.92, Estim Creat Clear Calc 73.80, Est GFR (MDRD) Af Amer 102, Est GFR (MDRD) Non-Af 84, BUN/Creatinine Ratio 13.0, Glucose 108 H, Calcium 8.1 L, Total Bilirubin 4.90 H, AST 227 H, ALT 418 H, Alkaline Phosphatase 163 H, Total Protein 6.1 L, Albumin 3.1 L, Globulin 3.0, Albumin/Globulin Ratio 1.0, Lipase 2746 H Current Medications Albuterol Sulfate (Ventolin Aerosols) 2.5 mg INHALATION Q2H PRN PRN PRN Reason: Shortness of Breath/Wheezing Lactated Ringer's () 1,000 mls @ 175 mls/hr IV .Q5H43M NATALI Last Admin: 03/01/20 02:25 Dose: 175 mls/hr Documented by: Morphine Sulfate () 2 mg IV Q3H PRN PRN PRN Reason: Pain Score 6-10/10 Last Admin: 02/29/20 13:50 Dose: 2 mg Documented by: Ondansetron HCl (Zofran) 4 mg IV Q8H PRN PRN PRN Reason: NAUSEA/VOMITING Sodium Chloride (0.9% Nacl (Sterile) Posiflush) 10 - 40 ml IV UD PRN PRN Reason: Port access or dressing change Sodium Chloride () 10 - 40 ml IV UD PRN PRN Reason: Midline Flush Last Admin: 02/29/20 05:06 Dose: 10 ml Documented by: Sodium Chloride () 10 - 40 ml IV UD PRN PRN Reason: SALINE FLUSH Medical Necessity - Tobacco Use Smoking Status: Never smoker Assessment/Plan All Active Problems (Last Reviewed 02/29/20 @ 04:[address] Jakub Powell MD) Acute pancreatitis (Acute) Transaminitis (Acute) Ileus (Acute) Pancreatitis (Acute) Obstructive jaundice (Acute) Atypical chest pain (Resolved) Sinus bradycardia (Resolved) 79-year-old male with choledocholithiasis status post ERCP and gallstone pancreatitis 1. Patient is doing well and his lipase is coming down as well as his LFTs. He had ERCP yesterday with clearance of 2 large stones from his common bile duct. He is feeling well this morning with no pain. He had no nausea or vomiting. 2. Plan for laparoscopic cholecystectomy later today. 3. I discussed the procedure in detail with the patient. I discussed the risks, benefits, and alternatives of the procedure. I discussed the risks including but not limited to bleeding, infection, injury to surrounding organs such as the liver, bile duct, bowels. I did discuss the possibility of having to convert to an open procedure as well as the possibility that if any injuries occurred this may necessitate further surgery at a tertiary care center. Antoine Cline MD Pager: [facility] [address] [place] [address] Office:
--- NOTE | 2020-03-01 10:35 | CASEMGMT ---
RN CM Face to Face with patient for initial transition planning/care coordination assessment. RN CM introduced self and role at [facility]. Patient lying in bed, alert and oriented. Patient willing to participate in assessment and is able to answer all questions appropriately. Care providers, pharmacy, and demographics verified. Patient wishes to discharge home, denies need for home health at this time. Patient states he has no further needs or concerns at this time. CM to follow for discharge planning needs that may arise. PCP: [facility] Specialists: Kelly veterinary meat inspector [facility] Pres[facility] Benefit: yes Living Will/HPOA: yes, Alexus Guerrero LNOK: Living Arrangements: Patient lives with in 2 story home with bed and bath on main level of home. Patient states he is independent at home. Transportation: self/ DME/HHC: Patient states he has shower chair, raised toilet, grab bars, and cpap at home. Disposition Plan: Patient to discharge home with family support and follow-up plans in place. Beatriz MIKE, RN, CM
--- NOTE | 2020-03-01 10:49 | NURSING ---
PT TO OR VIA BED
--- NOTE | 2020-03-01 11:28 | RAD_ITS ---
CLINICAL HISTORY: Male, 79 years old. Cholecystectomy PROCEDURE: CHOLANGIOGRAM - intraoperative CONSENT: Informed consent obtained SEDATION: General FLUOROSCOPY TIME (if supplied): (43) seconds. Intraoperative cine loop of the cholangiogram performed Placement of the catheter and the procedure were performed by: Dr. Cline Fluoroscopy was provided by RT [place], who was present in the room time of the procedure. TECHNIQUE: (All elements of maximal sterile barrier technique followed, including US elements as applicable) After cholecystectomy, the cystic duct remnant was cannulized by Dr. Cline, and contrast injected into the biliary tree. There is normal distention of the biliary tree, normal retrograde filling of the intrahepatic ducts are noted along with normal filling of the extrahepatic common bile duct and free flow of contrast into the duodenum is noted. There is no extravasation of contrast outside the lumen of the biliary tree. RAD/Cholangiogram/ O R,Initial IMPRESSION: Normal intraoperative cholangiogram Electronically Signed: Jesus Mann MD at 12:58 EDT , Service support ,
[2020-03-01] MEDS: Bupiv/Epi 0.25% 30 ML Vial (12:26)
--- NOTE | 2020-03-01 12:48 | OP.PCM_ITS ---
Problem List (1) Obstructive jaundice Status: Acute (2) Acute pancreatitis Status: Acute Qualifiers: Pancreatitis type: biliary Acute pancreatitis complication: unspecified Qualified Code(s): K85.10 - Biliary acute pancreatitis without necrosis or infection Report of Operation Date of Procedure: 03/01/20 Pre-Operative Diagnosis: Gallstone pancreatitis Post-Operative Diagnosis: Pancreatitis and acute cholecystitis Surgery/Procedure Performed:: Laparoscopic cholecystectomy with cholangiogram Description of Surgical Findings:: Patient had very inflamed gallbladder with multiple stones. Normal intraoperative cholangiogram Specimen's removed: Gallbladder and contents Description of Procedure: After obtaining informed consent patient was brought back to the operating room. General anesthesia was induced. The abdomen was prepped and draped in usual sterile fashion. A small incision was made in the right upper quadrant and a 5 mm port was placed into the abdomen under direct Visiport visualization. The abdomen was insufflated to 15 mmHg and the abdomen was inspected for injuries and there were none. The midline incision site was inspected and there was no scar tissue or adhesions. A midline incision was made over the prior midline incision and a 12 mm port was placed under direct visualization. Next an additional right upper quadrant port was placed under direct visualization as well as an epigastric port. Next the gallbladder was elevated and retracted toward the right shoulder. The peritoneum was stripped from the gallbladder. The gallbladder was very inflamed. The infundibulum was located and retracted laterally. Next the triangle of Calot was dissected and the cystic duct and cystic artery were identified. Cholangiograms were performed. The Carter clamp was used to clamp across the infundibulum and the catheter needle was inserted into the gallbladder. Under fluoroscopy contrast was instilled into the gallbladder and the common duct, cystic duct as well as proximal hepatic ducts were identified. There was good filling of the duodenum. There were no filling defects noted in the common bile duct. The clamp was removed as well as the needle and the infundibulum was grasped once more. Three hemolock clips were placed across the cystic duct. The cystic duct was then divided leaving 2 clips on the stump. The cystic artery was clipped and divided in the same fashion. The hook cautery was then used to take the gallbladder off of the gallbladder bed. Hemostasis was obtained. Gallbladder fossa was irrigated and no active bleeding or bile leakage was noted. Next the camera was introduced in the subxiphoid port. An Endopouch bag was placed through the umbilical port and the gallbladder was placed into it. The gallbladder was then removed through the umbilical incision. The camera was then reinserted through the umbilical port. The gallbladder fossa was inspected once more and noted to be hemostatic with no leaking bile. The abdomen was suctioned dry. The 5 mm ports were removed under direct visualization. The umbilical port was then removed and the air was removed from the abdomen. Next using an 0 Vicryl suture the umbilical fascia was closed in a [id number] fashion. The umbilical port site was irrigated local anesthetic was administered to all the incisions. All the incisions were closed with interrupted subcuticular 4-0 Monocryl sutures followed by Steri- Strips and dressings. The patient was awoken and taken to PACU in stable condition. - Admit VTE Documentation VTE Mechan Device Prophylaxis: SCD's
--- NOTE | 2020-03-01 16:29 | PCM.PROGNOTE ---
Patient Problems: Active and Suspected Problems (Last Reviewed 02/29/20 @ 04:[address] Jakub Powell MD) Acute pancreatitis (Acute) Transaminitis (Acute) Ileus (Acute) Pancreatitis (Acute) Obstructive jaundice (Acute) Subjective: Patient was seen and examined today, he underwent a laparoscopic cholecystectomy today, he appears comfortable postop at this time, he does not complain of any shortness of breath or chest discomfort. - Physical Exam Vitals/I&O's: Vital Signs Temp Pulse Resp BP Pulse Ox 97.9 F 82 16 161/84 H 97 03/01/20 14:10 03/01/20 14:10 03/01/20 14:10 03/01/20 14:10 03/01/20 14:10 Oxygen Flow Rate (L/min) 2 Oxygen Delivery Method Nasal Cannula Weight: 98.8 kg Body Mass Index (BMI) 29.5 Intake and Output for Last 24 Hours 02/28/20 02/29/20 03/01/20 23:59 23:59 23:59 Intake Total 2362.50 / 2362.50 3636.42 / 3636.42 Output Total 400 / 400 Balance 2362.50 / 2362.50 3236.42 / 3236.42 General: Alert, Oriented x3, Cooperative, No apparent distress, Well developed, Well nourished HEENT: Atraumatic, PERRLA, EOMI, Normocephalic Oral: Moist Mucosa Neck: Supple, Trachea Midline, Thyroid Normal Size and Texture Lungs: Clear to auscultation, Normal air movement, No rhonchi, No wheeze Cardiovascular: Regular rate, Regular Rhythm, Normal S1, Normal S2, No murmurs Abdomen: Soft, Hypoactive Bowel Sounds Extremities: No clubbing, No cyanosis, No edema, Capillary Refill Less than 3 Seconds Skin: No rashes, No breakdown Musculoskeletal: No Tenderness to Palpation of Joints or Extremities Neurological: Cranial nerves II-XII grossly intact, Neuro grossly intact, Sensory exam intact to light touch and pain, Coordination normal Psych/Mental Status: Normal Affect, Appropriate, Alert and oriented to time, place, person, mood and affect Laboratory Results 03/01/20 05:35: WBC 8.1, RBC 4.22 L, Hgb 13.6, Hct 41.1, MCV 97.4 H, MCH 32.2 H, MCHC 33.1, RDW Std Deviation 48.1 H, RDW Coeff of Alice 13.5, Plt Count 126 L, MPV 10.9, Immature Gran % (Auto) 0.400, Neut % (Auto) 84.6 H, Lymph % (Auto) 5.6 L, [place] % (Auto) 8.8, Eos % (Auto) 0.2, Baso % (Auto) 0.4, Absolute Neuts (auto) 6.9, Absolute Lymphs (auto) 0.45 L, Nucleated RBC % 0, Differential Comment SCANNED 03/01/20 05:35: Sodium 138, Potassium 3.3 L, Chloride 106, Carbon Dioxide 24.0, Anion Gap 8, BUN 12, Creatinine 0.92, Estim Creat Clear Calc 73.80, Est GFR (MDRD) Af Amer 102, Est GFR (MDRD) Non-Af 84, BUN/Creatinine Ratio 13.0, Glucose 108 H, Calcium 8.1 L, Total Bilirubin 4.90 H, AST 227 H, ALT 418 H, Alkaline Phosphatase 163 H, Total Protein 6.1 L, Albumin 3.1 L, Globulin 3.0, Albumin/Globulin Ratio 1.0, Lipase 2746 H Current Medications Albuterol Sulfate (Ventolin Aerosols) 2.5 mg INHALATION Q2H PRN PRN PRN Reason: Shortness of Breath/Wheezing Lactated Ringer's () 1,000 mls @ 175 mls/hr IV .Q5H43M [facility] Last Admin: 03/01/20 14:37 Dose: 175 mls/hr Documented by: Morphine Sulfate () 2 mg IV Q3H PRN PRN PRN Reason: Pain Score 6-10/10 Last Admin: 02/29/20 13:50 Dose: 2 mg Documented by: Ondansetron HCl (Zofran) 4 mg IV Q8H PRN PRN PRN Reason: NAUSEA/VOMITING Sodium Chloride (0.9% Nacl (Sterile) Posiflush) 10 - 40 ml IV UD PRN PRN Reason: Port access or dressing change Sodium Chloride () 10 - 40 ml IV UD PRN PRN Reason: Midline Flush Last Admin: 02/29/20 05:06 Dose: 10 ml Documented by: Sodium Chloride () 10 - 40 ml IV UD PRN PRN Reason: SALINE FLUSH Medical Necessity - Tobacco Use Smoking Status: Never smoker Assessment/Plan All Active Problems (Last Reviewed 02/29/20 @ 04:[address] Jakub Powell MD) Acute pancreatitis (Acute) Transaminitis (Acute) Ileus (Acute) Pancreatitis (Acute) Obstructive jaundice (Acute) Atypical chest pain (Resolved) Sinus bradycardia (Resolved) #1 acute pancreatitis-resolving at this time, continue IV fluids-I have elected to decrease his IV rate to 150 cc/h #2 choledocholithiasis-stones were removed during his ERCP yesterday #3 cholelithiasis-patient underwent a laparoscopic cholecystectomy today-postop day 0 #4 essential hypertension Inpatient E&M: 20434 Subs Hosp L2
[2020-03-01] MEDS: Lactated Ringers 1,000 ML 150 ML IV (18:28)
[2020-03-02] MEDS: Lactated Ringers 1,000 ML 150 ML IV (01:05)
[2020-03-02 02:25] VITALS: BP 162/86; PULSE 88; RESP 18; TEMP 36.8; O2SAT 94
[2020-03-02 02:29] VITALS: BMI 29.5
[2020-03-02 05:50] LABS: Absolute Lymphocyte Count 0.65 X10^3/uL (0.83-4.51); Absolute Neutrophil Count 8.2 X10^3/uL (2.0-7.7); Basophil# 0.04 X10^3/uL; Basophil% 0.4 % (0-1); Eosinophil# 0.09 X10^3/uL; Eosinophils% 0.9 % (0-5); Hematocrit 41.1 % (40-54); Hemoglobin 13.8 g/dL (13.0-16.5); Lymphocyte # 0.65 X10^3/ul (4.0); Lymphocyte % 6.6 % (19-41); Mean Corp Hgb Conc 33.6 g/dL (32-36); Mean Corpuscular Hgb 32.2 pg (27.0-32.0); Mean Platelet Vol. 10.7 fl (6.2-12.0); Monocyte# 0.86 X10^3/uL; Monocyte% 8.7 % (0-10); NRBC Flagged by Analyzer 0 % (0-5); Neutrophil # 8.15 X10^3/uL (2.7-7.7); Neutrophil % 82.8 % (47-70); Platelet Count 118 K/mm3 (150-450); RBC Distribution Width CV 13.5 % (11.6-14.6); Red Blood Count 4.28 M/mm3 (4.6-6.2); White Blood Count 9.9 K/mm3 (4.4-11.0)
[2020-03-02 06:23] VITALS: BP 166/90; PULSE 83; RESP 18; TEMP 37; O2SAT 95
[2020-03-02 06:29] VITALS: BMI 29.5
[2020-03-02 06:29] LABS: ALB/GLOB Ratio 0.9 RATIO (0.9-2.4); AST(SGOT) 122 U/L (15-37); Alanine Aminotransfer ALT/SGPT 304 U/L (16-61); Alkaline Phosphatase 162 U/L (45-117); Anion Gap 6 (5-15); BUN 11 mg/dL (7-18); BUN/Creat Ratio 13.6 RATIO (10-20); Calcium,Total 8.1 mg/dL (8.5-10.1); Chloride 105 mmol/L (98-107); Creatinine, Serum 0.81 mg/dL (0.70-1.30); EST Glomerular Filtration Rate 98 mL/min (>60); Est Glom Filt Rate - Afr Amer 119 mL/min (>60); Estimated Creatinine Clearance 83.83 ml/min; Globulin 3.3 g/dL (2.2-4.2); Glucose 115 mg/dL (74-106); Lipase 357 U/L (73-393); Potassium 3.3 mmol/L (3.5-5.1); Protein, Total 6.3 g/dL (6.4-8.2); Sodium Level 137 mmol/L (136-145)
--- NOTE | 2020-03-02 07:33 | PN.SURG_ITS ---
Patient Problems: Active and Suspected Problems (Last Reviewed 02/29/20 @ 04:[address] Jakub Powell MD) Acute pancreatitis (Acute) Transaminitis (Acute) Ileus (Acute) Pancreatitis (Acute) Obstructive jaundice (Acute) Subjective: Patient is doing well this morning with no nausea or vomiting. He reports passing flatus. - Physical Exam Vitals/I&O's: Vital Signs Temp Pulse Resp BP Pulse Ox 98.6 F 83 18 166/90 H 95 03/02/20 06:23 03/02/20 06:23 03/02/20 06:23 03/02/20 06:23 03/02/20 06:23 Oxygen Flow Rate (L/min) 1 Oxygen Delivery Method Nasal Cannula Weight: 217 lb 13.067 oz Body Mass Index (BMI) 29.5 Intake and Output for Last 24 Hours 02/29/20 03/01/20 03/02/20 23:59 23:59 23:59 Intake Total 2362.50 / 2362.50 4430.17 / 4430.17 992.5 / 992.5 Output Total 400 / 400 Balance 2362.50 / 2362.50 4030.17 / 4030.17 992.5 / 992.5 General: Alert, Oriented x3 Lungs: Normal air movement Cardiovascular: Regular rate, Regular Rhythm Abdomen: Soft, Non Tender, Non-Distended Laboratory Results 03/02/20 05:22: WBC 9.9, RBC 4.28 L, Hgb 13.8, Hct 41.1, MCV 96.0 H, MCH 32.2 H, MCHC 33.6, RDW Std Deviation 48.0 H, RDW Coeff of Alice 13.5, Plt Count 118 L, MPV 10.7, Immature Gran % (Auto) 0.600, Neut % (Auto) 82.8 H, Lymph % (Auto) 6.6 L, Sullivan % (Auto) 8.7, Eos % (Auto) 0.9, Baso % (Auto) 0.4, Absolute Neuts (auto) 8 .2 H, Absolute Lymphs (auto) 0.65 L, Nucleated RBC % 0 03/02/20 05:22: Sodium 137, Potassium 3.3 L, Chloride 105, Carbon Dioxide 26.0, Anion Gap 6, BUN 11, Creatinine 0.81, Estim Creat Clear Calc 83.83, Est GFR (MDRD) Af Amer 119, Est GFR (MDRD) Non-Af 98, BUN/Creatinine Ratio 13.6, Glucose 115 H, Calcium 8.1 L, Total Bilirubin 2.50 H, AST 122 H, ALT 304 H, Alkaline Phosphatase 162 H, Total Protein 6.3 L, Albumin 3.0 L, Globulin 3.3, Albumin/Globulin Ratio 0.9, Lipase 357 Current Medications Albuterol Sulfate (Ventolin Aerosols) 2.5 mg INHALATION Q2H PRN PRN PRN Reason: Shortness of Breath/Wheezing Amlodipine Besylate (Norvasc) 2.5 mg PO DAILY NATALI Morphine Sulfate () 2 mg IV Q3H PRN PRN PRN Reason: Pain Score 6-10/10 Last Admin: 02/29/20 13:50 Dose: 2 mg Documented by: Ondansetron HCl (Zofran) 4 mg IV Q8H PRN PRN PRN Reason: NAUSEA/VOMITING Sodium Chloride (0.9% Nacl (Sterile) Posiflush) 10 - 40 ml IV UD PRN PRN Reason: Port access or dressing change Sodium Chloride () 10 - 40 ml IV UD PRN PRN Reason: Midline Flush Last Admin: 02/29/20 05:06 Dose: 10 ml Documented by: Sodium Chloride () 10 - 40 ml IV UD PRN PRN Reason: SALINE FLUSH Medical Necessity - Tobacco Use Smoking Status: Never smoker Assessment/Plan All Active Problems (Last Reviewed 02/29/20 @ 04:[address] Jakub Powell MD) Acute pancreatitis (Acute) Transaminitis (Acute) Ileus (Acute) Pancreatitis (Acute) Obstructive jaundice (Acute) Atypical chest pain (Resolved) Sinus bradycardia (Resolved) 79-year-old male with gallstone pancreatitis and obstructive jaundice and acute cholecystitis 1. Patient doing well after laparoscopic cholecystectomy. If patient tolerates regular diet today may be discharged home. Follow-up with me in 2 weeks. No lifting over 20 pounds. Removed clear bandages tomorrow and remove Steri-Strips in 7 to 10 days. Patient may shower today. Antoine Cline MD Pager: [facility] [address] [place] [address], [address] [place] [phone] Office:
--- NOTE | 2020-03-02 07:36 | DCINST_ITS ---
Discharge Diet: Light diet - advance as tolerated Discharge Activity: Return to Normal Activity, May Not Drive - for 2-3 days or while taking narcotic pain medicataions., May Shower Lifting Restrictions: 20 lbs for 2 weeks Additional Activity Instructions:: Pain medication may cause nausea. You should typically eat light foods as you take your pain medications. Pain medication may also cause constipation. If this is a problem for you, please discuss with your doctor. Call your doctor if your incision/area has: Continuous Slow Oozing, Sudden Increased Bleeding, Increased Pain/ Swelling, Increased Redness, Foul Smelling Discharge, Fever of 101 or Higher Call your doctor if you observe: Fever of 101 or Higher Suture Line Care: Avoid Pulling/Pushing, Avoid Pinching/Bending Additional Dressing/Incision Instructions:: Leave operative bandaids on for 2 days. When you remove dressing, leave Steri-Strips on until your follow-up appointment, or until the Steri-Strips fall off on their own. Allergies/Adverse Reactions: Allergies Penicillins Allergy (Verified 02/29/20 01:40) Unknown Sulfa (Sulfonamide Antibiotics) Allergy (Verified 02/29/20 01:40) Unknown Medications to take at Discharge Albuterol Inhaler [Ventolin Hfa] 1 puff INHALATION Q4H PRN PRN 06/10/17 Amlodipine [Norvasc] 2.5 mg PO DAILY 06/10/17 Aspirin E.C. [Ecotrin] 81 mg PO MOWEFR 06/10/17 ascorbic acid (vitamin C) 500 mg capsule,extended release 500 mg PO DAILY 06/12/19 modafinil 200 mg tablet 200 mg PO DAILY 01/13/20 Primary Care Physician: Hector Castro MD [Primary Care Provider] - Test Results: Test results from this visit will be discussed in further detail at your follow- up appointment, if applicable. Please Follow Up With: Antoine Cline MD When: Please call to schedule 2 week follow up appointment. [phone]
[2020-03-02] MEDS: amLODIPine 2.5 MG Tablet PO (08:32)
[2020-03-02 10:29] VITALS: BMI 29.5
--- NOTE | 2020-03-02 11:49 | DCINST_ITS ---
- Discharge Diagnoses Current Active Problems: Current Active and Chronic Problems (Last Reviewed 02/29/20 @ 04:[address] Jakub Powell MD) Acute pancreatitis (Acute) Transaminitis (Acute) Ileus (Acute) Pancreatitis (Acute) Obstructive jaundice (Acute) You will use the following diet at home:: No restrictions Your food should be the consistency of: Regular Your liquids should be the consistency of: Regular/Thin Discharge Activity: Return to Normal Activity, May Not Drive - for 2-3 days or while taking narcotic pain medicataions., May Shower Weight Bearing Status: Full weight bearing Additional Activity Instructions:: Pain medication may cause nausea. You should typically eat light foods as you take your pain medications. Pain medication may also cause constipation. If this is a problem for you, please discuss with your doctor. Call your doctor if your incision/area has: Continuous Slow Oozing, Sudden Increased Bleeding, Increased Pain/ Swelling, Increased Redness, Foul Smelling Discharge, Fever of 101 or Higher Call your doctor if you observe: Fever of 101 or Higher Suture Line Care: Avoid Pulling/Pushing, Avoid Pinching/Bending Additional Dressing/Incision Instructions:: Leave operative bandaids on for 2 days. When you remove dressing, leave Steri-Strips on until your follow-up appointment, or until the Steri-Strips fall off on their own. Allergies/Adverse Reactions: Allergies Penicillins Allergy (Verified 02/29/20 01:40) Unknown Sulfa (Sulfonamide Antibiotics) Allergy (Verified 02/29/20 01:40) Unknown Medications to take at Discharge Albuterol Inhaler [Ventolin Hfa] 1 puff INHALATION Q4H PRN PRN 06/10/17 Amlodipine [Norvasc] 2.5 mg PO DAILY 06/10/17 Aspirin E.C. [Ecotrin] 81 mg PO MOWEFR 06/10/17 ascorbic acid (vitamin C) 500 mg capsule,extended release 500 mg PO DAILY 06/12/19 modafinil 200 mg tablet 200 mg PO DAILY 01/13/20 Primary Care Physician: Hector Castro MD [Primary Care Provider] - Please follow up with your Primary Care Physician in: as scheduled Test Results: Test results from this visit will be discussed in further detail at your follow- up appointment, if applicable. Please Follow Up With: Antoine Cline MD When: Please call to schedule 2 week follow up appointment. [phone]
[2020-03-02 12:25] VITALS: BP 138/84; PULSE 87; RESP 18; TEMP 37.2; O2SAT 94
--- NOTE | 2020-03-02 17:55 | PCM.DC.SUM ---
Discharge Date and Diagnosis Date of Admission: 02/29/20 Date of Discharge: 03/02/20 - Primary Discharge Diagnosis Acute Problems: #1 acute gallstone pancreatitis #2 choledocholithiasis #3 cholelithiasis #4 essential hypertension - Secondary Discharge Diagnosis Chronic Problems: Chronic Problems (Last Reviewed 02/29/20 @ 04:[address] 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 CT of the abdomen and pelvis was obtained-it showed evidence of acute pancreatitis and associated ileus. Patient was admitted to [place] [address] for acute pancreatitis and seen in consultation by general surgery who performed an ERCP with removal of several small stones. Following this, IV fluids were continued on the patient and he underwent a laparoscopic cholecystectomy on 03/01/2020. Patient did well after surgery with no complications. On 03/02/2020, patient was seen and examined: On examination he appeared in good health and spirits. Vital signs as documented. Skin warm and dry and without overt rashes. Neck without JVD, neck was supple, trachea midline, thyroid was normal. Lungs clear bilaterally, normal air movement was noted. Heart exam notable for regular rhythm, normal sounds and absence of murmurs, rubs or gallops. Abdomen unremarkable and without evidence of organomegaly, masses, or abdominal aortic enlargement. Bowel sounds are present, abdomen is not distended. Extremities nonedematous, no cyanosis was noted, no clubbing was noted. Neuro: Cranial nerves II through XII are grossly intact, no focal motor deficits were noted, sensation to light touch and pinprick intact, motor exam 5/5 throughout. Psych: Patient is alert and oriented x3, he does not appear anxious or depressed, he does not appear agitated. Patient appears stable for discharge on 03/02/2020. - Physical Exam Vitals/I&O's: Vital Signs Temp Pulse Resp BP Pulse Ox 98.9 F 87 18 138/84 H 94 03/02/20 12:25 03/02/20 12:25 03/02/20 12:25 03/02/20 12:25 03/02/20 12:25 Oxygen Flow Rate (L/min) 1 Oxygen Delivery Method Room Air Weight: 98.8 kg Body Mass Index (BMI) 29.5 Intake and Output for Last 24 Hours 02/29/20 03/01/20 03/02/20 23:59 23:59 23:59 Intake Total 2362.50 / 2362.50 4430.17 / 4430.17 Output Total 400 / 400 Balance 2362.50 / 2362.50 4030.17 / 4030.17 Laboratory Results 03/02/20 05:22: WBC 9.9, RBC 4.28 L, Hgb 13.8, Hct 41.1, MCV 96.0 H, MCH 32.2 H, MCHC 33.6, RDW Std Deviation 48.0 H, RDW Coeff of Alice 13.5, Plt Count 118 L, MPV 10.7, Immature Gran % (Auto) 0.600, Neut % (Auto) 82.8 H, Lymph % (Auto) 6.6 L, [place] % (Auto) 8.7, Eos % (Auto) 0.9, Baso % (Auto) 0.4, Absolute Neuts (auto) 8.2 H, Absolute Lymphs (auto) 0.65 L, Nucleated RBC % 0 03/02/20 05:22: Sodium 137, Potassium 3.3 L, Chloride 105, Carbon Dioxide 26.0, Anion Gap 6, BUN 11, Creatinine 0.81, Estim Creat Clear Calc 83.83, Est GFR (MDRD) Af Amer 119, Est GFR (MDRD) Non-Af 98, BUN/Creatinine Ratio 13.6, Glucose 115 H, Calcium 8.1 L, Total Bilirubin 2.50 H, AST 122 H, ALT 304 H, Alkaline Phosphatase 162 H, Total Protein 6.3 L, Albumin 3.0 L, Globulin 3.3, Albumin/Globulin Ratio 0.9, Lipase 357 Discharge Diet: Light diet - advance as tolerated Discharge Activity: Return to Normal Activity, May Not Drive - for 2-3 days or while taking narcotic pain medicataions., May Shower Weight Bearing Status: Full weight bearing Additional Activity Instructions:: Pain medication may cause nausea. You should typically eat light foods as you take your pain medications. Pain medication may also cause constipation. If this is a problem for you, please discuss with your doctor. Call your doctor if your incision/area has: Continuous Slow Oozing, Sudden Increased Bleeding, Increased Pain/ Swelling, Increased Redness, Foul Smelling Discharge, Fever of 101 or Higher Call your doctor if you observe: Fever of 101 or Higher Suture Line Care: Avoid Pulling/Pushing, Avoid Pinching/Bending Additional Dressing/Incision Instructions:: Leave operative bandaids on for 2 days. When you remove dressing, leave Steri-Strips on until your follow-up appointment, or until the Steri-Strips fall off on their own. Home Medications: Medications to take at Discharge Albuterol Inhaler [Ventolin Hfa] 1 puff INHALATION Q4H PRN PRN 06/10/17 Amlodipine [Norvasc] 2.5 mg PO DAILY 06/10/17 Aspirin E.C. [Ecotrin] 81 mg PO MOWEFR 06/10/17 ascorbic acid (vitamin C) 500 mg capsule,extended release 500 mg PO DAILY 06/12/19 modafinil 200 mg tablet 200 mg PO DAILY 01/13/20 Primary Care Physician: Hector Castro MD [Primary Care Provider] - Please follow up with your Primary Care Physician in: as scheduled Please Follow Up With: Antoine Cline MD When: Please call to schedule 2 week follow up appointment. [phone] Disposition: Home Minutes spent on discharge:: 31 Patient Condition:: Stable Medical Necessity - Tobacco Use Smoking Status: Never smoker Meaningful Use Info Meaningful Use Diagnoses (Choose all that apply): None applicable Inpatient E&M: 67583 Disch Hosp
--- NOTE | 2020-03-03 14:29 | CASEMGMT ---
MALIK BENAVIDES Discharge Follow-Up Phone Call. [place]: Yun Strata: 3 Discharge Date: 03/02/20 Adm Dx: Acute Pancreatitis Call to pt to inquire about how he has been doing since being discharged from the hospital. Pt states he is improving. He denies having any questions about the discharge instructions or medications and he is aware he needs to make an appt with Dr Cline for a 2-week f/u appt. Pt states he does not have any concerns/needs at this time. MALIK BENAVIDES thanked pt for choosing [facility]. Shey MIKE RN, CM
== END 2020-03-02 12:12 | disposition home or self-care (01) | DRG 418 ==
LOC: ED 03:50 → MS3 04:33
PROVIDERS: Anesthesiology; Surgery; Admitting Provider Hospitalist; Emergency Provider Emergency Medicine; PCP Internal Medicine; Visit Provider Internal Medicine
PROC: 0FCD8ZZ Extirpation of Matter from Pancreatic Duct, Via Natural or Artificial Opening Endoscopic (ICD-10-PCS; CPT 43260; principal; 2020-02-29 08:30)
PROC: 0FT44ZZ Resection of Gallbladder, Percutaneous Endoscopic Approach (ICD-10-PCS; CPT 47610; principal; 2020-03-01 13:40)
DX: K85.10 Biliary acute pancreatitis without necrosis or infection (principal); K56.7 Ileus, unspecified; K80.12 Calculus of gallbladder with acute and chronic cholecystitis without obstruction; K80.46 Calculus of bile duct with acute and chronic cholecystitis without obstruction; I10 Essential (primary) hypertension; R00.0 Tachycardia, unspecified; M19.90 Unspecified osteoarthritis, unspecified site; E66.9 Obesity, unspecified; Z68.29 Body mass index [BMI] 29.0-29.9, adult; G47.419 Narcolepsy without cataplexy; J45.909 Unspecified asthma, uncomplicated; Z79.51 Long term (current) use of inhaled steroids; Z79.899 Other long term (current) drug therapy
CPT/HCPCS: 36415; 74176; 74300; 74328; 76000; 80053; 80061; 81001; 83690; 84484; 85025; 85610; 87635; 88304; 93005; 99284; J7030; J7120; A4216; J0744; J1610; J2405; U0003

== ENCOUNTER → 2021-02-28 11:31 | Outpatient (CLI) | payer MEDICARE, OTHER, SELFPAY ==
[2021-02-28 11:05] VITALS: BMI 29.2
[2021-02-28 12:54] LABS: ALB/GLOB Ratio 1.1 RATIO (0.9-2.4); AST(SGOT) 25 U/L (15-37); Alanine Aminotransfer ALT/SGPT 35 U/L (16-61); Alkaline Phosphatase 87 U/L (45-117); Anion Gap 7 (5-15); BUN 14 mg/dL (7-18); BUN/Creat Ratio 12.6 RATIO (10-20); Calcium,Total 8.9 mg/dL (8.5-10.1); Chloride 106 mmol/L (98-107); Creatinine, Serum 1.11 mg/dL (0.70-1.30); EST Glomerular Filtration Rate 68 mL/min (>60); Est Glom Filt Rate - Afr Amer 82 mL/min (>60); Globulin 3.6 g/dL (2.2-4.2); Glucose 105 mg/dL (74-106); Potassium 3.8 mmol/L (3.5-5.1); Protein, Total 7.6 g/dL (6.4-8.2); Sodium Level 138 mmol/L (136-145)
== END ==
PROVIDERS: PCP Internal Medicine; Visit Provider Physician Assistant
DX: I10 Essential (primary) hypertension (principal)
CPT/HCPCS: 36415; 80053

== ENCOUNTER 2021-04-14 17:00 | Outpatient (RCR) | payer MEDICARE, OTHER, SELFPAY ==
[2021-02-08 14:42] VITALS: BMI 29.2
--- NOTE | 2021-02-24 16:41 | HP.PTEVAL_ITS ---
Patient's Visit Information KASSI MARCIAL is a 80 year old M referred to Physical Therapy by Dr. Maximino Rivas MD with a diagnosis of L knee OA. Date of Evaluation: 02/24/21 Physical Therapist: Misha Lopez, DPT, OCS, CSCS - Visit Plan Plan: f/u after surgery for reevaluation of symptoms, signs after surgery. PT to [facility] lprior if needed. - Subjective Will have R TKA in [address] Rivas. Longstanding months of R knee pain, Has longer history of pain. R knee is bone on bone according to x rays. 5 months ago got really bad . Gets up to 9/10 if mow lawn on uneven ground. Has brace. Has HEP including Tae Hema, lifts weights for upper body, has been given HS and gastroc stretch, Heel slides, standing hip flexion, abd, ext, Stand knee flexion. Sleep is interrupted. Steps are one at a time with L. No cane or walker. Used walker for a couple weeks after L TKA. Not empoyed. Spends day developing websites, sitting and is hard to get up. Basic ADLS are getting done, varying degrees of pain. Has bars on toilet and raised seat and walker, Has shower seat. Comfortable with walker and L leg ons teps. - Pain R knee Pain Intensity (Out of 10): 1 Pain Intensity Range: 1, 9 - Objective R antalgia in gait wihtout AD but I. Trasnfers with UE I. Steps with L only and needs rail or two.. R knee AROM -3 to 98 degrees. strength quad 29# and HS 17 # both painful and limited. hip flexion and DF R also weak due to pain. HS and gastroc min to mod tight. reflexes 2/3 patella and achilles. Sensation wNL to gross lgiht touch. girth 6 sp 20. TUG 15 seconds. womac 59 score. - Goals Goal 1:: I approp HEP for PREHAB R knee for TKA in 2 weeks- Met today. Goal Time Frame: 2 Weeks - Rehabilitation Potential Physical Therapy Diagnosis: L knee OA causing ROm and strength adn mobility deficits. Rehabilitation Potential: Fair - Anticipated Interventions Patient/Client Instruction: Educate patient on: Condition, Plan of Care For the Purpose of:: To increase ROM, To improve muscle performance and motor function Therapeutic Exercise to Include: Strength training, Postural training, Flexibilty training, Gait and locomotor training, Neuromotor development, Passive ROM, Active ROM For the Purpose of:: To increase ROM, To improve muscle performance and motor function Thank you for the opportunity to evaluate your patient. For Medicare and Medicare HMO plans, please review the plan of care and approve it. It will need to be FAXED BACK to us at [phone] for Medicare purposes. For Medicare only, by signing this I certify the plan of care. Please let me know if there are questions or concerns regarding this plan of care. Physician Signature: Date:
--- NOTE | 2021-03-01 11:57 | HP.PTREVAL ---
Dr. Maximino Rivas MD, It has been my pleasure to treat KASSI MARCIAL over the last 2 visits for R knee OA. Please see the progress note below for an update on the physical therapy plan of care! Subjective: Decided he wants to have a few visists to make sure things he is doing things right with his HEP. Took tylenol to take the edge. Objective/Function: 117 AROM knee flexion today, much improved. Pt forot about PKF ex. Did well wtih the exercises today and much better rom . New goal set and fair prognosis, should do well with ROM after the big improvement today. Plan Plan: Pt changed mind and wanted two visits ex prior to surgery to make sure he is doing them properly. Out to gym next session prior to surgery next week. To tolerance. Goals Goal 1:: I approp HEP for PREHAB R knee for TKA in 2 weeks- Met today. Goal Time Frame: 2 Weeks Goal 2:: I approp HEP comfortably prior to surgery Goal Time Frame: 1 Week Goal Progress: NEW GOAL Anticipated Interventions Patient/Client Instruction: Educate patient on: Condition, Plan of Care For the Purpose of:: To increase ROM, To improve muscle performance and motor function Therapeutic Exercise to Include: Strength training, Postural training, Flexibilty training, Gait and locomotor training, Neuromotor development, Passive ROM, Active ROM For the Purpose of:: To increase ROM, To improve muscle performance and motor function Please do not hesitate to contact me at [phone] by phone or if you have questions or concerns regarding this new plan of care! Sincerely, Misha Lopez, DPT, OCS, CSCS
--- NOTE | 2021-03-28 08:50 | HP.PTREVAL ---
Dr. Maximino Rivas MD, It has been my pleasure to treat KASSI MARCIAL over the last 4 visits for R knee OA. Please see the progress note below for an update on the physical therapy plan of care! Subjective: TKA R 3 weeks ago end of February. 3x week for 2 weeks for home health PT. Pain level is intermittent 5/10 after workout. Not taking pain pills except at night. Sleeping is not great. Impriving overall. Walking with cane and sometimes without it. Getting easier, no falls. Doing exercises of SLR, GS, QS, AP, calf raises, HS(was 97 last Sunday). Steps at home are not a problem using L leg. Basic ADLs are getting done. Goals now are cutting lawn standing, walking in [place]. Objective/Function: -5 to 83 AROM R knee today. ROM to 89. strength Rknee flex and ext 4-. Gait is hesitant and avoids push off and only slight knee flexion until cued. Avoids knee ext fully at heel strike. steps up and down using L. R is weak to ascend adn not enough motion to descend. Plan Plan: 3x/week for 3-5 weeks . Start with. 1. patellar mobs, rollout quad and HS, PROM R knee flex and ext. 2 Progress to machine strengthening once full ext and 110 flexion to get I with gym program. 3. ice as needed. Goals Goal 1:: I approp HEP for PREHAB R knee for TKA in 2 weeks- Met today. Goal Time Frame: 2 Weeks Goal Progress: Goal Met Goal 2:: I approp HEP comfortably prior to surgery Goal Time Frame: 1 Week Goal Progress: Goal Met Goal 3:: -1 to 110 AROM to allow steps easier Goal Time Frame: 4-6 Weeks Goal 4:: Normal gait in community without AD Goal Time Frame: 4-6 Weeks Goal 5:: steps reciprocal with one rail Goal Time Frame: 4-6 Weeks Goal 6:: start to push mow lawn without deficits. Goal Time Frame: 4-6 Weeks Anticipated Interventions Patient/Client Instruction: Educate patient on: Condition, Plan of Care For the Purpose of:: To increase ROM, To improve muscle performance and motor function Therapeutic Exercise to Include: Strength training, Postural training, Flexibilty training, Gait and locomotor training, Neuromotor development, Passive ROM, Active ROM For the Purpose of:: To increase ROM, To improve muscle performance and motor function Please do not hesitate to contact me at [phone] by phone or if you have questions or concerns regarding this new plan of care! Sincerely, Misha Lopez, DPT, OCS, CSCS
--- NOTE | 2021-06-17 07:41 | HP.PT.NRP ---
KASSI MARCIAL was seen in my office for initial evaluation on 02/24/21. The following Plan of Care was established for this patient: Patient/Client Instruction: Educate patient on: Condition, Plan of Care For the Purpose of:: To increase ROM, To improve muscle performance and motor function Therapeutic Exercise to Include: Strength training, Postural training, Flexibilty training, Gait and locomotor training, Neuromotor development, Passive ROM, Active ROM For the Purpose of:: To increase ROM, To improve muscle performance and motor function This patient was last seen in our office 04/14/21. Pertinent comments regarding their Physical therapy will appear below: Pt seen 11 visits of POC and was 75% improved. At last visit he wished to cotninue on his own via HEP and f/u two weeks later for likely d/c. He did not schedule or attend that visit. At this point, it has been over two months and I will discontinue from therapy. At this point I will be discontinuing this patient from physical therapy. I would be happy to see this patient again in the future if found appropriate by the physician. Thank you! Misha Lopez, DPT, OCS, CSCS Balance/Gait/Functional tests - Balance/Special Test Scores Functional Gait Assessment Score: 22 % Disability: 26.6700 Lower Extremity Functional Score: 19
== END 2021-04-14 19:00 | disposition home or self-care (01) ==
LOC: PT 17:00
PROVIDERS: PCP Internal Medicine; Referring Provider Orthopaedic Surgery; Visit Provider Orthopaedic Surgery
DX: M17.11 Unilateral primary osteoarthritis, right knee (principal)
CPT/HCPCS: 97110; 97140; 97161; 97164

== ENCOUNTER 2021-06-17 22:24 | Emergency (ER) | payer OTHER, MEDICARE, SELFPAY ==
[2021-06-17 22:25] VITALS: BP 175/95; PULSE 80; RESP 18; TEMP 36.1; O2SAT 96; BMI 30.2
--- NOTE | 2021-06-17 22:35 | CT_ITS ---
INDICATION: R flank pain EXAMINATION: CT Abdomen And Pelvis W/O Contrast Injection TECHNIQUE: Helically acquired images were obtained of the abdomen and pelvis without the use of IV contrast. A radiation dose optimization technique was used for this scan. Oral contrast: None. COMPARISON: 02/29/2020 FINDINGS: Evaluation of the solid organs and vascular structures is limited without intravenous contrast. Visualized lung bases: Bibasilar atelectasis. Liver: Unremarkable Gallbladder: Surgically absent. Spleen: Unremarkable Pancreas: Unremarkable Adrenal Glands: Unremarkable Kidneys: There is moderate right hydroureteronephrosis. No visualized stones. There is a 1.7 x 1 cm soft tissue density in the distal right ureter (image 125, series 2). Simple 3.5 cm exophytic cyst in the right lower renal pole. Vasculature: Mild scattered aortoiliac atherosclerotic calcifications. GI Tract: Unremarkable Lymphadenopathy: None Peritoneum: No ascites. Bladder: Unremarkable Reproductive organs: Status post prostatectomy. Bones/Soft tissues: There are diffuse degenerative changes of the spine. CT/Abdomen/Pelvis without Cont IMPRESSION: 1.7 cm soft tissue density mass in the distal right ureter with associated moderate right hydroureteronephrosis. This is concerning for possible malignancy versus blood clot. Recommend urology consult and possible repeat CT abdomen w/ contrast to assess for enhancement. Electronically Signed: Chidi Potts MD at 23:49 EDT Tel , Service support ,
--- NOTE | 2021-06-17 22:36 | ED.VIS.GI ---
HPI HPI - GI History of Present Illness Chief Complaint: Abd Pain Informant: patient Abdominal Pain/Flank Pain Onset: Today (around 6 hrs) Context: Sudden Onset (mild, then worse) Timing: Continuous (not colicky) Quality: Aching Location: Right Flank (radiating down to groin but not scrotum) Current Severity: Mild Maximum Severity: Severe Worsened by: Nothing; Not Worsened By Movement Relieved by: - (unk, maybe the muscle relaxer and ibuprofen helped) Nausea/Vomiting/Emesis GI Symptom: Positive for Nausea and Vomiting Quality: Positive for Nonbilious Episodes: 1 Diarrhea/Melena/Hematochezia GI Symptom: Negative for Diarrhea, Melena and Hematochezia Associated Symptoms Associated Symptoms: Negative for Dysuria, Frequency, Hematuria and Urgency Narrative Narrative: Patient states couple hours before the onset of pain he was lifting a lawnmower in his garage while he was working on it and he ate felt something in his right side but no major pain until later when it started bothering him while he was resting. The pain got worse and then he ended up vomiting which is very unusual for him. He took Motrin and muscle relaxer, he states the pain has eased up now, it has not been colicky and has been constant since it started earlier in the afternoon. No urinary symptoms. No fevers or chills, no history of kidney stones. Had a prior cholecystectomy. 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) Mallet finger of left finger(s) Narcolepsy Obesity (BMI 30.0-34.9) Osteoarthritis Pancreatitis Skin cancer Sleep apnea Home Medications albuterol sulfate 1 puff INHALATION Q4H PRN PRN 06/10/17 [History Last Taken Unknown] aspirin 81 mg PO MOWEFR 06/10/17 [History Last Taken 06/08/17] modafinil 200 mg tablet 200 mg PO DAILY 01/13/20 [History Last Taken Unknown] budesonide-formoterol HFA 160 mcg-4.5 mcg/actuation aerosol inhaler 2 puff INHALATION BID 07/06/20 [History Last Taken Unknown] mecobalamin (vitamin B12) 1,000 mcg disintegrating tablet,sublingual 1,000 mcg SUBLINGUAL DAILY 07/06/20 [History Last Taken Unknown] amlodipine 2.5 mg tablet 2.5 mg PO DAILY #90 tab 02/23/21 [Rx Last Taken Unknown] ciprofloxacin HCl 500 mg PO BID #14 tablet 06/18/21 [Rx Last Taken Unknown] oxycodone-acetaminophen 1 tab PO Q4H PRN 3 Days #18 tablet 06/18/21 [Rx Last Taken Unknown] Allergy/AdvReac Type Severity Reaction Status Date / Time Penicillins Allergy Unknown Verified 06/17/21 22:37 Sulfa (Sulfonamide Allergy Unknown Verified 06/17/21 22:37 Antibiotics) Family History Mother CAD (coronary artery disease) Father Cancer Other CVA (cerebral vascular accident) Hypertension Surgical History H/O hernia repair H/O knee surgery H/O prostatectomy History of appendectomy History of cholecystectomy (02/29/20) History of radiofrequency ablation procedure for cardiac arrhythmia (03/17/08) Social History Smoking Status: Never smoker alcohol intake: current alcohol intake frequency: 0-2 drinks per day Alcohol type: beer and hard liquor substance use type: does not use what type of physical activity do you participate in: none ROS ROS ED Constitutional Constitutional ED: Denies chills or fever(s) Eyes Eyes: Denies change in vision or diplopia ENT ENT ED: Denies rhinorrhea or sore throat Cardiovascular Cardiovascular: Denies chest pain or palpitations Respiratory/Chest Respiratory/Chest: Denies cough or dyspnea Gastrointestinal Gastrointestinal: Reports abdominal pain, nausea and vomiting; Denies diarrhea Genitourinary Genitourinary ED: Denies dysuria or hematuria Musculoskeletal Musculoskeletal: Denies back pain or neck pain Integumentary Denies abscess or rash Neurologic Neurologic: Denies headache(s), paresthesias or weakness Psychiatric Psychiatric: Denies anxiety or suicidal thoughts EXAM Physical Exam Const Vital Signs: 06/17/21 22:25 06/18/21 00:31 06/18/21 01:03 Temperature 97 F L Temperature Source Temporal Pulse Rate 80 60 71 Respiratory Rate 18 18 18 Blood Pressure 175/95 H 152/77 H 196/82 H Blood Pressure Mean 121 102 120 Pulse Ox 96 99 97 Oxygen Delivery Method Room Air Room Air Positive well nourished and well developed General Appearance ED: well developed and NAD HEENT Reports moist mucous membranes normocephalic and atraumatic Eyes PERRL and EOMs intact bilaterally Neck full ROM and supple Resp normal respiratory effort and clear to auscultation bilaterally Cardio regular rate, regular rhythm and no murmurs GI non-tender and non-distended Auscultation: normoactive bowel sounds Palpation: soft; Negative for pulsatile mass Back/Spine no CVA tenderness General Back: other FROM Extremity normal to inspection General Extremety ED: Negative for edema, pulses abnormal or tenderness General Extremity: Negative for edema or pulses abnormal Neuro oriented x3, CN's II-XII intact bilaterally and no sensory deficits noted Sensorium / Orientation: awake and alert Motor Exam: strength 5/5 throughout Skin no rashes or lesions noted and no wounds MDM MDM MDM Narrative Medical decision making narrative: Initial CT showed what appeared to be a possible mass related to an obstruction of the distal right ureter causing hydronephrosis. IV contrasted scan recommended, I discussed with the patient this was done and then we gave him some IV fluids to flush his kidneys afterwards, and the results are noted below. These results are fairly nonspecific but it is enough to know he needs urgent referral to urology for likely scope and further diagnostics. Patient presents Sunday night/Sunday morning, and there is no urology coverage tonight. I had discussed with the hospitalist for options, urology will be available to see him on Sunday, if he stays in the hospital. We did get his pain under control with morphine, and I offered him admission but he declines and prefers to be at home unless his pain gets out of control, at which point he can certainly return. I think if he follows up with urology soon as possible, I think that would be reasonable. His creatinine is slightly elevated compared with his prior but does not meet criteria for SU. Although he does not have a leukocytosis nor signs of infection on urinalysis, since he has complete obstruction of the ureter evidenced by decreased flow in the right collecting system, I think it would be reasonable to put him on prophylactic ciprofloxacin in addition to analgesics until he can follow-up. Discussed all this with him and significant other, they are comfortable with that overall plan we discussed reasons to return. Lab Data Attestation: I reviewed the patient's lab results. Labs: Laboratory Results - last 24 hr 06/17/21 06/17/21 06/17/21 22:37 22:37 22:45 WBC 8.6 RBC 4.47 L Hgb 13.9 Hct 41.6 MCV 93.1 MCH 31.1 MCHC 33.4 RDW Std Deviation 46.6 H RDW Coeff of Alice 13.8 Plt Count 184 MPV 11.0 Immature Gran % (Auto) 0.500 Neut % (Auto) 82.1 H Lymph % (Auto) 10.8 L [place] % (Auto) 5.3 Eos % (Auto) 0.8 Baso % (Auto) 0.5 Absolute Neuts (auto) 7.1 Absolute Lymphs (auto) 0.93 Nucleated RBC % 0 Sodium 138 Potassium 4.1 Chloride 107 Carbon Dioxide 24.0 Anion Gap 7 BUN 15 Creatinine 1.39 H Estim Creat Clear Calc 48.07 Est GFR (MDRD) Af Amer 64 Est GFR (MDRD) Non-Af 53 L BUN/Creatinine Ratio 10.8 Glucose 180 H Calcium 8.8 Urine Color Yellow Urine Clarity Clear Urine pH 6.0 Ur Specific [place] 1.020 Urine Protein 30 H Urine Glucose (UA) Normal Urine Ketones Negative Urine Occult Blood 50 H Urine Nitrite Negative Urine Bilirubin Negative Urine Urobilinogen Normal Ur Leukocyte Esterase 25 H Urine RBC 0 SEEN Urine WBC 0-5 SEEN Ur Squamous Epith Cells 0 SEEN Urine Bacteria 0 SEEN Urine Mucus 0 SEEN Radiography Diagnostic Testing: Clinical Impression(s) from Imaging Studies Abdomen/Pelvis CT 06/17/21 22:35 IMPRESSION: 1.7 cm soft tissue density mass in the distal right ureter with associated moderate right hydroureteronephrosis. This is concerning for possible malignancy versus blood clot. Recommend urology consult and possible repeat CT abdomen w/ contrast to assess for enhancement. Electronically Signed: Chidi Potts MD at 23:49 EDT Tel , Service support , Abdomen/Pelvis CT 06/18/21 00:47 IMPRESSION: 1. Findings concerning for obstructing right mid ureteral mass or thrombus with moderate right hydronephrosis. There is delayed passage of IV contrast through the right renal cortex with no right ureteral contrast on the delayed phase. Consider additional noncontrast CT abdomen pelvis for a significant delayed phase and opacification of the right ureter. Otherwise recommend urology consultation for consideration of retrograde endoscopic visualization and possible proximal decompression. Individualized dose optimization techniques were used for this CT. at 0203 Reported and signed by: Carlos Clark MD Electronically Signed: Carlos Clark MD at 2:01 EDT Tel , Service support , Discharge Plan Triage Chief Complaint: Abd Pain ED Provider: Emil Vance Dx/Rx/DC Orders Clinical Impression: Obstruction of right ureter, Renal colic on right side Instructions: Anatomy of the Male Urinary Tract, Taking Opioid Medicines Prescriptions: New ciprofloxacin HCl [ciprofloxacin HCl] 500 MG tablet 500 mg PO BID Qty: 14 RF: 0 oxycodone-acetaminophen [oxycodone-acetaminophen] 1 TABLET tablet 1 tab PO Q4H PRN (Reason: Pain) 3 Days Qty: 18 RF: 0 No Action mecobalamin (vitamin B12) 1,000 mcg tablet,disintegrating 1,000 mcg SUBLINGUAL DAILY RF: 0 budesonide-formoterol [Symbicort] 160-4.5 mcg/actuation HFA aerosol inhaler 2 puff INHALATION BID RF: 0 aspirin 81 MG tablet 81 mg PO MOWEFR RF: 0 albuterol sulfate 1 INHALER inhaler 1 puff inhalation Q4H PRN PRN (Reason: Shortness Of Breath) RF: 0 modafinil 200 mg tablet 200 mg PO DAILY RF: 0 amlodipine 2.5 mg tablet 2.5 mg PO DAILY Qty: 90 RF: 1 Primary Care Provider: Oumou Mena Referrals: Jae Magaña MD [STAFF PHYSICIAN] - As soon as possible (call sunday for appt to be seen this coming week) Oumou Mena MD [Primary Care Provider] - Disposition Disposition: Home, Self Care
[2021-06-17] MEDS: Morphine 2 MG/ML Syringe IV ×2 (22:43→23:59)
[2021-06-17] MEDS: Ondansetron 4 MG/2 ML Vial IV (22:43)
[2021-06-17 22:57] LABS: Bacteria 0 SEEN /hpf (None Seen); Mucous, Urine 0 SEEN /hpf (<or=2+); Red Blood Cells-Urine 0 SEEN /hpf (0-5); Squamous Epithelial Cells - UA 0 SEEN /hpf (0-5)
[2021-06-17 22:59] LABS: Absolute Lymphocyte Count 0.93 X10^3/uL (0.83-4.51); Absolute Neutrophil Count 7.1 X10^3/uL (2.0-7.7); Basophil# 0.04 X10^3/uL; Basophil% 0.5 % (0-1); Eosinophil# 0.07 X10^3/uL; Eosinophils% 0.8 % (0-5); Hematocrit 41.6 % (40-54); Hemoglobin 13.9 g/dL (13.0-16.5); Lymphocyte # 0.93 X10^3/ul (0.83-4.51); Lymphocyte % 10.8 % (19-41); Mean Corp Hgb Conc 33.4 g/dL (32-36); Mean Corpuscular Hgb 31.1 pg (27.0-32.0); Mean Corpuscular Volume 93.1 fL (80-94); Monocyte# 0.46 X10^3/uL; Monocyte% 5.3 % (0-10); NRBC Flagged by Analyzer 0 % (0-5); Neutrophil # 7.06 X10^3/uL (2.7-7.7); Neutrophil % 82.1 % (47-70); Platelet Count 184 K/mm3 (150-450); RBC Distribution Width CV 13.8 % (11.6-14.6); RBC Distribution Width SD 46.6 fl (35.1-43.9); Red Blood Count 4.47 M/mm3 (4.6-6.2); White Blood Count 8.6 K/mm3 (4.4-11.0)
[2021-06-17 23:02] LABS: Color, Urine Yellow (Yellow); Glucose, Dipstick Normal (Normal); Ketone-Dipstick Negative (Negative); Leukocyte Esterase-Dipstick 25 /ul (Negative); Nitrite-Dipstick Negative (Negative); Occult Blood-Urine 50 /ul (Negative); Protein-Dipstick 30 mg/dl (Negative); Urine Bilirubin Dipstick Negative (Negative); Urine Clarity Clear (Clear); Urine Urobilinogen Normal (Normal)
[2021-06-17 23:09] LABS: White Blood Cells 0-5 SEEN /hpf (0-5)
[2021-06-17 23:16] LABS: Anion Gap 7 (5-15); BUN 15 mg/dL (7-18); BUN/Creat Ratio 10.8 RATIO (10-20); Calcium,Total 8.8 mg/dL (8.5-10.1); Chloride 107 mmol/L (98-107); Creatinine, Serum 1.39 mg/dL (0.70-1.30); EST Glomerular Filtration Rate 53 mL/min (>60); Est Glom Filt Rate - Afr Amer 64 mL/min (>60); Estimated Creatinine Clearance 48.07 ml/min; Glucose 180 mg/dL (74-106); Potassium 4.1 mmol/L (3.5-5.1); Sodium Level 138 mmol/L (136-145)
[2021-06-18 00:31] VITALS: BP 152/77; PULSE 60; RESP 18; O2SAT 99
--- NOTE | 2021-06-18 00:47 | CT_ITS ---
HISTORY: RLQ mass TECHNIQUE: Helically acquired images were obtained of the abdomen and pelvis following the intravenous administration of 100mL Isovue-300 Iodinated contrast. No Oral contrast was administered. Coronal and sagittal reformats obtained. A radiation dose optimization technique was used for this scan. COMPARISON: CT abdomen pelvis June 17, 2021 and February 29, 2020 FINDINGS: # of images incl. paperwork: 520 LUNG BASES: Mild basilar dependent atelectasis. LIVER T BILIARY TRACT: Cholecystectomy. 1 cm right hepatic hypodensities which are too small to characterize. ADRENAL GLANDS: Unremarkable. SPLEEN: Unremarkable. PANCREAS: Unremarkable. KIDNEYS/URETERS/BLADDER: Moderate right hydronephrosis with a delayed cortical transit of IV contrast. Mild bilateral perinephric stranding is unchanged from prior CT and likely senescent. No air-fluid physis appreciated. Right proximal ureter is dilated and hypodense, extending to focal intraluminal hyperdensity in the mid right ureter, axial image 84 and coronal image 70 spanning 1.5 cm cranial caudal by 1 cm diameter and tapering distally. Right distal ureter is decompressed. IV contrast remains external to the ureter on delayed phase on the right with normal left ureteral filling. Unremarkable left ureter. Unremarkable bladder. LYMPH NODES: No suspicious adenopathy. STOMACH, SMALL AND LARGE BOWEL: No acute gastric finding. No small bowel obstruction or gross wall thickening. Appendectomy suture. No acute colonic finding. ASCITES/FREE AIR: No free fluid or free air. AORTA: Unremarkable. PELVIS: Unremarkable. MUSCULOSKELETAL: No acute osseous finding. Multilevel lumbar facet arthropathy. CT/Abdomen/Pelvis W IV Cont ONLY IMPRESSION: 1. Findings concerning for obstructing right mid ureteral mass or thrombus with moderate right hydronephrosis. There is delayed passage of IV contrast through the right renal cortex with no right ureteral contrast on the delayed phase. Consider additional noncontrast CT abdomen pelvis for a significant delayed phase and opacification of the right ureter. Otherwise recommend urology consultation for consideration of retrograde endoscopic visualization and possible proximal decompression. Individualized dose optimization techniques were used for this CT. at 0203 Reported and signed by: Carlos Clark MD Electronically Signed: Carlos Clark MD at 2:01 EDT Tel , Service support ,
[2021-06-18] MEDS: Morphine 4 MG/ML Syringe IV (01:01)
[2021-06-18 01:03] VITALS: BP 196/82; PULSE 71; RESP 18; O2SAT 97
== END 2021-06-18 03:28 | disposition home or self-care (01) ==
PROVIDERS: Emergency Provider Emergency Medicine; PCP Internal Medicine
DX: N13.1 Hydronephrosis with ureteral stricture, not elsewhere classified (principal); N23 Unspecified renal colic; J45.909 Unspecified asthma, uncomplicated; I10 Essential (primary) hypertension; E66.9 Obesity, unspecified; M19.90 Unspecified osteoarthritis, unspecified site; Z79.51 Long term (current) use of inhaled steroids; Z79.899 Other long term (current) drug therapy
CPT/HCPCS: 74176; 74177; 80048; 81001; 85025; 96361; 96374; 96375; 99282; J7040; Q9967; A4216; J2405

== ENCOUNTER → 2021-06-20 | Outpatient (CLI) | payer OTHER, MEDICARE, SELFPAY ==
--- NOTE | 2021-06-20 11:53 | CYSPIN_PTH ---
PATIENT: KASSI MARCIAL LOC: [facility] U#:[id number] AGE/SX: 80/M ROOM: RE06/20/[address]: Dr. Jae Magaña MD : 1940 BED: DIS: 06/20/2021 SPEC #: [id number] RECD: 06/20/21 15:54 STATUS: JASWANT REOdell #: [id number] FRIDA: 06/20/21 11:[address]: Jae Magaña DEPT: CYTOLOGY RECD BY: Lilian Corbett ENTERED: 06/21/21 07:37 SP TYPE: CYSPIN FL OTHR DR: Dr. Oumou Mena MD Tissues: Urine Procedures: Pap Stain (control) Special Stain Group II Cytospin Fluid HEADER OPERATION: Not noted PRE-OP DIAGNOSIS: Malignant neoplasm of prostate TISSUE SUBMITTED: Urine for cytology DIAGNOSIS CYTOLOGY Urine for cytology (cytospin): Positive for malignant cells consistent with urothelial carcinoma. AM:rg 06/21/2021 COMMENT Case has been reviewed in consultation with Dr. Beaver who concurs with the above diagnosis. IDC:SJ CYTOLOGY STUDY Slides are reviewed. CYTOLOGY GROSS Received is 30 ml of cloudy gold fluid labeled with the patient's name and and designated per the requisition as urine. Submitted for cytology preparation. / shantel 06/21/2021 TC:0 CPT: 16531
[2021-06-20 15:54] LABS: Cytology, Body Fluid / CSF SEE PATHOLOGY REPORT
== END | disposition home or self-care (01) ==
PROVIDERS: PCP Internal Medicine; Referring Provider Urology; Visit Provider Urology
DX: C61 Malignant neoplasm of prostate (principal)
CPT/HCPCS: 88108; 88313

== ENCOUNTER 2021-06-22 09:17 | Day surgery (SDC) | payer MEDICARE, OTHER, SELFPAY ==
--- NOTE | 2021-06-21 10:19 | EKG12_ITS ---
Test Reason : PRE OP Blood Pressure : / mmHG Vent. Rate : 079 BPM Atrial Rate : 079 BPM P-R Int : 178 ms QRS Dur : 092 ms QT Int : 362 ms P-R-T Axes : 020 -35 038 degrees QTc Int : 415 ms Sinus rhythm with Fusion complexes Left axis deviation Abnormal ECG Confirmed by ANMOL AMEZCUA, SABRINA ([id number]), slot editor JOEL MEDEIROS ([id number]) on 06/22/2021 9:14:30 AM Referred By: Jae Magaña Confirmed By:SABRINA COREA MD
--- NOTE | 2021-06-22 | URE_PTH ---
PATIENT: KASSI MARCIAL LOC: [facility] [place] U#:[id number] AGE/SX: 80/M ROOM: RE06/22/[address]: Dr. Jae Magaña MD : 1940 BED: DIS: 06/22/2021 SPEC #: [id number] RECD: 06/22/21 14:52 STATUS: JASWANT ISABEL #: [id number] FRIDA: 06/22/21 00:[address]: Jae Magaña DEPT: SURGICAL PATHOLOGY RECD BY: Lilian Corbett ENTERED: 06/23/21 07:39 SP TYPE: URETER BX OTHR DR: Dr. 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 See comment. PANTERA:shantel 06/24/2021 COMMENT Lamina propria invasion is not seen. Smooth muscle proper is not seen in the specimen. Please make reference to previous specimen ([id number]) urine for cytology with diagnosis of ?positive for malignant cells consistent with urothelial carcinoma.? MICROSCOPIC DESCRIPTION Slides are reviewed. GROSS DESCRIPTION Received in fixative is one container labeled with the patient's name and designated ureteral tumor. The specimen consists of multiple irregular fragments of mancini soft tissue that in aggregate measure 1.5 x 0.5 x 0.1 cm. The specimen is received in formalin in metal basket. The entire specimen is submitted in one cassette. / PANTERA:shantel 06/23/21 TC:0 CPT: 07481
[2021-06-22 09:49] VITALS: BP 129/76; PULSE 75; RESP 16; TEMP 37.7; O2SAT 95; BMI 29.9
[2021-06-22] MEDS: Lactated Ringers 1,000 ML 100 ML IV (10:04)
[2021-06-22] MEDS: Cefazolin 2 GM in 0.9% Normal Saline 100 ML IV (11:03)
--- NOTE | 2021-06-22 12:02 | HP.PCM_ITS ---
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) History of echocardiogram History of edema History of stress test Mallet finger of left finger(s) Narcolepsy Non-smoker Obesity (BMI 30.0-34.9) Osteoarthritis Pancreatitis Skin cancer Sleep apnea Wears glasses Home Medications albuterol sulfate 1 puff INHALATION Q4H PRN PRN 06/10/17 [History Last Taken Unknown] aspirin 81 mg PO MOWEFR 06/10/17 [History Last Taken 06/20/21] modafinil 200 mg tablet 200 mg PO DAILY 01/13/20 [History Last Taken 06/22/21 04:30] budesonide-formoterol HFA 160 mcg-4.5 mcg/actuation aerosol inhaler 2 puff INHALATION BID 07/06/20 [History Last Taken Unknown] mecobalamin (vitamin B12) 1,000 mcg disintegrating tablet,sublingual 1,000 mcg SUBLINGUAL QODAY 07/06/20 [History Last Taken Unknown] amlodipine 2.5 mg tablet 2.5 mg PO DAILY #90 tab 02/23/21 [Rx Last Taken 06/22/21 04:30] ciprofloxacin HCl 500 mg PO BID #14 tablet 06/18/21 [Rx Last Taken 06/22/21 04:30] ciprofloxacin HCl 500 mg PO BID #6 tab 06/22/21 [Rx Last Taken Unknown] ibuprofen 600 mg PO Q6H PRN #10 tab 06/22/21 [Rx Last Taken Unknown] Allergy/AdvReac Type Severity Reaction Status Date / Time Penicillins Allergy Unknown Verified 06/22/21 09:48 Sulfa (Sulfonamide Allergy Unknown Verified 06/22/21 09:48 Antibiotics) Family History Mother CAD (coronary artery disease) Father Cancer Other CVA (cerebral vascular accident) Hypertension Surgical History (Updated 06/21/21 @ 08:28 by Radha Du H/O hernia repair H/O knee surgery H/O prostatectomy History of appendectomy History of cholecystectomy (02/29/20) History of ERCP History of radiofrequency ablation procedure for cardiac arrhythmia (03/17/08) Hx of total knee arthroplasty Hx of total knee arthroplasty Social History Smoking Status: Never smoker alcohol intake: current alcohol intake frequency: 0-2 drinks per day Alcohol type: beer and hard liquor substance use type: does not use what type of physical activity do you participate in: none Vital Signs Vital Signs Vital Signs: 06/22/21 09:49 06/22/21 10:00 Temperature 99.8 F H Temperature Source Temporal Pulse Rate 75 Respiratory Rate 16 Respiratory Pattern Normal Blood Pressure 129/76 H Blood Pressure Mean 93 Blood Pressure Source Monitor Blood Pressure Position Semi-Fowlers Blood Pressure Location Left Arm Pulse Ox 95 Oxygen Delivery Method Room Air Weight Weight: 100 kg Body Mass Index (BMI) 29.9
--- NOTE | 2021-06-22 12:02 | PCM.DC ---
Discharge Instructions Diet Discharge Diet: No restrictions Activity Discharge Activity: Return to Normal Activity and May Not Drive (while taking narcotic pain medications.) Dressing / Incision Call your doctor if you observe: Fever of 101 or Higher Follow Up Care Please Follow Up With: Jae Magaña MD When: Call [phone] for an appointment Test Results: Test results from this visit will be discussed in further detail at your follow-up appointment, if applicable. Discharge Plan Admission Primary Reason for Your Visit: Ureteral tumor Attending Provider: Jae Magaña Primary Care Provider: Oumou Mena Instructions Patient Instructions: Having a Ureteral Stent Discharge Orders/Prescriptions Prescriptions: New ciprofloxacin HCl 500 mg tablet 500 mg PO BID Qty: 6 RF: 0 ibuprofen 600 mg tablet 600 mg PO Q6H PRN (Reason: pain) Qty: 10 RF: 0 Continued mecobalamin (vitamin B12) 1,000 mcg tablet,disintegrating 1,000 mcg SUBLINGUAL QODAY RF: 0 budesonide-formoterol [Symbicort] 160-4.5 mcg/actuation HFA aerosol inhaler 2 puff INHALATION BID RF: 0 aspirin 81 MG tablet 81 mg PO MOWEFR RF: 0 albuterol sulfate 1 INHALER inhaler 1 puff inhalation Q4H PRN PRN (Reason: Shortness Of Breath) RF: 0 modafinil 200 mg tablet 200 mg PO DAILY RF: 0 ciprofloxacin HCl 500 MG tablet 500 mg PO BID Qty: 14 RF: 0 amlodipine 2.5 mg tablet 2.5 mg PO DAILY Qty: 90 RF: 1 Referrals / Follow Up: Jae Magaña MD [STAFF PHYSICIAN] - Oumou Mena MD [Primary Care Provider] - Disposition Disposition (needs filled in before D/C Order can be placed): Home, Self Care
--- NOTE | 2021-06-22 12:03 | OP.PCM_ITS ---
Report of Operation Date of Procedure: 06/22/21 Pre-Operative Diagnosis: Right ureteral tumor Post-Operative Diagnosis: Same Surgery/Procedure Performed:: Cystoscopy diagnostic, right retrograde pyelogram interpretation fluoroscopic images, balloon dilation of the right ureter, right ureteroscopy and biopsy of ureteral mass. Right stent placement Description of Surgical Findings:: This 80-year-old male who presented to my office with onset of right flank pain and gross hematuria CT scan was reviewed that was suspicious for mass in the ureter and suspicious for ureteral tumor. In reviewing everything with the patient I recommended we proceed with a diagnostic cystoscopy ureteroscopy and biopsy of this tumor we will attempt endoscopic management of this tumor if feasible but he understands this may not be feasible. Patient was taken back to the operating room after smooth induction of general anesthesia he was placed in dorsolithotomy position. The penis and testicles were prepped and draped in usual sterile fashion went into the bladder with a 21 Citizen [place] rigid cystourethroscope the entire length the urethra is normal the prostate was normal appeared to have a prior resection of the prostate open channel I then identified the landmarks in the bladder the trigone was normal the left and right ureteral orifice were normal there was no obvious papillary tumors within the bladder. I then cannulated the right ureteral orifice with a Glidewire and a Pollack catheter performed a retrograde pyelogram using contrast going up some tortuosity in the ureter and then dilation of the ureter and a filling defect within the distal ureter probably 4 to 5 cm beyond the insertion of the ureter into the bladder. I then put the wire up through this and then over the wire I performed a balloon dilation of the distal ureter in order in order to allow the flexible ureteroscope to go into the [place] size ureter. After the distal ureter was balloon dilated then over the wire I went in with a flexible ureteroscope I then placed a second wire next to the flexible ureteroscope as a safety wire and then went all the way up to the kidney inspected the upper pole midpole lower pole the kidney there was no obvious tumors in the kidney itself had a mild UPJ obstruction in the kidney that was able to get through the flexible ureteroscope but was quite tight and then worked my way down the ureter and still encountered the severe towards tortuosity I was a result of the tumor and then using a nitinol tipless basket I was able to use the basket to grab some of the papillary areas of the tumor and then extracted the tumor with the basket however I did not and could not extract the entire tumor. I then went back into the bladder with a SlimLine ureteroscope was able to get up to the tumor but very difficult tortuosity area was not able to treat or do any cauterization of the tumor because it angle was too difficult with the semirigid scope. So they backed out the ureter and I went back in with a flexible scope again leaving the wire in place as a safety wire still could not reach the area of the tumor even to attempt to cauterization to see if the area could be treated therefore I do not think this is a resectable tumor and not feasible to do endoscopic management. I then over the wire place a stent is a 6 [place] by 26 cm stent once a stent was in good position and coiled in the kidney and bladder in good position I then drained the bladder patient anesthetic reversed I went spoke to the and will discuss options of management for this ureteral mass. Surgeon: nahid Type of Anesthesia: General Drains: Right stent Admit VTE Documentation VTE Present on Admission: No VTE Mechan Device Prophylaxis: SCD's VTE Pharm Prophylaxis ordered?: No
[2021-06-22 12:15] VITALS: BP 129/76; BP 134/61; PULSE 78; RESP 16; TEMP 37; O2SAT 98
[2021-06-22 12:30] VITALS: BP 129/76; BP 140/69; PULSE 72; RESP 16; O2SAT 94
[2021-06-22 12:45] VITALS: BP 129/76; BP 142/75; PULSE 72; RESP 16; O2SAT 97
[2021-06-22 13:00] VITALS: BP 129/76; BP 152/75; PULSE 69; RESP 16; TEMP 36.4; O2SAT 95
[2021-06-22 13:55] VITALS: BP 127/90; BP 129/76; PULSE 76; RESP 16; TEMP 36.5; O2SAT 98
== END 2021-06-22 13:59 | disposition home or self-care (01) ==
LOC: SDC 09:17 → AC 09:41
PROVIDERS: PCP Internal Medicine; Referring Provider Urology; Visit Provider Urology
PROC: (CPT 50575; principal; 2021-06-22 14:45)
DX: C66.1 Malignant neoplasm of right ureter (principal); J45.909 Unspecified asthma, uncomplicated; I10 Essential (primary) hypertension; M19.90 Unspecified osteoarthritis, unspecified site; G47.30 Sleep apnea, unspecified; E66.9 Obesity, unspecified; Z68.29 Body mass index [BMI] 29.0-29.9, adult; Z79.51 Long term (current) use of inhaled steroids; Z79.899 Other long term (current) drug therapy
CPT/HCPCS: 00912; 52332; 52354; 76000; 88305; 93005; J7120; C1726; C1769; C2617; J2405

== ENCOUNTER 2021-07-06 10:22 | Day surgery (SDC) | payer MEDICARE, OTHER, SELFPAY ==
[2021-07-06 11:01] VITALS: BP 134/72; PULSE 73; RESP 16; TEMP 36.7; O2SAT 100
[2021-07-06] MEDS: Lactated Ringers 1,000 ML 100 ML IV (11:05)
--- NOTE | 2021-07-06 12:30 | URE_PTH ---
PATIENT: KASSI MARCIAL LOC: [facility] – [place] U#:[id number] AGE/SX: 80/M ROOM: RE07/06/[address]: Dr. Jae Magaña MD : 1940 BED: DIS: 07/06/2021 SPEC #: [id number] RECD: 07/06/21 14:25 STATUS: JASWANT TURNEROdell #: [id number] FRIDA: 07/06/21 12:[address]: Jae Magaña DEPT: SURGICAL PATHOLOGY RECD BY: Taiwo Suarez ENTERED: 07/07/21 07:58 SP TYPE: URETER BX OTHR DR: Dr. Oumou Mena MD Tissues: Ureter, NOS Procedures: Surgery Specimen Level IV HEADER OPERATION: Ureteroscopy, laser, biopsy ureteral mass with Thulium laser PRE-OP DIAGNOSIS: Right ureteral cancer TISSUE SUBMITTED: Right ureteral tumor MICROSCOPIC DIAGNOSIS Right ureteral tumor, biopsy: Papillary urothelial carcinoma, grade 2/3. See comment. PANTERA:shantel 07/08/2021 COMMENT The entire specimen consists of tumor mixed with blood clot. Cautery artifact and focal area of necrosis are also noted. Lamina propria and smooth muscle proper are not seen in the specimen. Please make reference to previous specimens ([id number]) ureteral tumor, biopsy with diagnosis of ?papillary urothelial carcinoma? and ([id number]) urine for cytology with diagnosis of ?positive for malignant cells consistent with urothelial carcinoma. This case has been reviewed in consultation with Dr. Morrow who concurs with the above diagnosis. MICROSCOPIC DESCRIPTION Slides are reviewed. GROSS DESCRIPTION Received in fixative is one container labeled with the patient's name and designated right ureteral tumor. The specimen consists of multiple fragments of hemorrhagic soft tissue that in aggregate measure 0.6 x 0.4 x 0.1 cm. The specimen is totally submitted in one cassette. / PANTERA:shantel 07/07/21 TC:0 CPT: 64945
--- NOTE | 2021-07-06 12:34 | PCM.HP.STD ---
HPI - General HPI Narrative KASSI MARCIAL, is a 80 M who presents for treatment of a biopsy-proven ureteral cancer and understands what an attempt to do do laser treatment of this ureteral tumor and there was no guarantees that we could get the tumor completely but we will do our best efforts today. 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) History of echocardiogram History of edema History of stress test Mallet finger of left finger(s) Narcolepsy Non-smoker Obesity (BMI 30.0-34.9) Osteoarthritis Pancreatitis Skin cancer Sleep apnea Wears glasses Home Medications albuterol sulfate 1 puff INHALATION Q4H PRN PRN 06/10/17 [History Last Taken Unknown] aspirin 81 mg PO MOWEFR 06/10/17 [History Last Taken 06/20/21] modafinil 200 mg tablet 200 mg PO DAILY 01/13/20 [History Last Taken 07/06/21 07:00] budesonide-formoterol HFA 160 mcg-4.5 mcg/actuation aerosol inhaler 2 puff INHALATION DAILY 07/06/20 [History Last Taken Unknown] mecobalamin (vitamin B12) 1,000 mcg disintegrating tablet,sublingual 1,000 mcg SUBLINGUAL QODAY 07/06/20 [History Last Taken Unknown] amlodipine 2.5 mg tablet 2.5 mg PO DAILY #90 tab 02/23/21 [Rx Last Taken 07/06/21 07:00] ibuprofen 600 mg PO Q6H PRN #10 tab 06/22/21 [Rx Last Taken Unknown] ciprofloxacin HCl [Cipro] 500 mg PO BID #6 tab 07/06/21 [Rx Last Taken Unknown] Allergy/AdvReac Type Severity Reaction Status Date / Time Penicillins Allergy Unknown Verified 07/06/21 10:59 Sulfa (Sulfonamide Allergy Unknown Verified 07/06/21 10:59 Antibiotics) Family History Mother CAD (coronary artery disease) Father Cancer Other CVA (cerebral vascular accident) Hypertension Surgical History (Updated 07/04/21 @ 09:54 by Mitzi Black) H/O hernia repair H/O knee surgery H/O prostatectomy History of appendectomy History of cholecystectomy (02/29/20) History of ERCP History of radiofrequency ablation procedure for cardiac arrhythmia (03/17/08) Hx of cystoscopy Hx of total knee arthroplasty Hx of total knee arthroplasty Social History Smoking Status: Never smoker alcohol intake: current alcohol intake frequency: 0-2 drinks per day Alcohol type: beer and hard liquor substance use type: does not use what type of physical activity do you participate in: none Vital Signs Vital Signs Vital Signs: 07/06/21 11:01 Temperature 98.0 F Temperature Source Temporal Pulse Rate 73 Respiratory Rate 16 Respiratory Pattern Normal Blood Pressure 134/72 H Blood Pressure Mean 92 Blood Pressure Source Monitor Blood Pressure Position Semi-Fowlers Blood Pressure Location Left Arm Pulse Ox 100 Oxygen Delivery Method Room Air Weight Weight: 100.5 kg Body Mass Index (BMI) 30.0
--- NOTE | 2021-07-06 12:35 | PCM.DC ---
Discharge Instructions Diet Discharge Diet: No restrictions Activity Discharge Activity: Return to Normal Activity and May Not Drive (while taking narcotic pain medications.) Dressing / Incision Call your doctor if you observe: Fever of 101 or Higher Follow Up Care Please Follow Up With: Jae Magaña MD When: Call [phone] for an appointment Test Results: Test results from this visit will be discussed in further detail at your follow-up appointment, if applicable. Discharge Plan Admission Primary Reason for Your Visit: treat ureteral tumor Attending Provider: Jae Magaña Primary Care Provider: Oumou Mena Discharge Orders/Prescriptions Prescriptions: New ciprofloxacin HCl [Cipro] 500 mg tablet 500 mg PO BID Qty: 6 RF: 0 Continued mecobalamin (vitamin B12) 1,000 mcg tablet,disintegrating 1,000 mcg SUBLINGUAL QODAY RF: 0 budesonide-formoterol [Symbicort] 160-4.5 mcg/actuation HFA aerosol inhaler 2 puff INHALATION DAILY RF: 0 aspirin 81 MG tablet 81 mg PO MOWEFR RF: 0 albuterol sulfate 1 INHALER inhaler 1 puff inhalation Q4H PRN PRN (Reason: Shortness Of Breath) RF: 0 modafinil 200 mg tablet 200 mg PO DAILY RF: 0 ibuprofen 600 mg tablet 600 mg PO Q6H PRN (Reason: pain) Qty: 10 RF: 0 amlodipine 2.5 mg tablet 2.5 mg PO DAILY Qty: 90 RF: 1 Referrals / Follow Up: Jae Magaña MD [STAFF PHYSICIAN] - Oumou Mena MD [Primary Care Provider] - Disposition Disposition (needs filled in before D/C Order can be placed): Home, Self Care
[2021-07-06] MEDS: Cefazolin 2 GM in 0.9% Normal Saline 100 ML IV (12:53)
--- NOTE | 2021-07-06 14:01 | OP.PCM_ITS ---
Report of Operation Date of Procedure: 07/06/21 Pre-Operative Diagnosis: Distal ureteral tumor cancer Post-Operative Diagnosis: The same Surgery/Procedure Performed:: Right ureteroscopy and resection of ureteral tumor and right stent placement Description of Surgical Findings:: 80-year-old male who was found to have bleeding from the right kidney on ureteroscopy and inspection and biopsy was found to have a mass in the distal right ureter we talked about options of management including nephro ureterectomy distal ureterectomy or possible endoscopic management he understands with endoscopic management we may build to salvage his kidney but it may not work and may fail he has a recurrence of tumor he may have tumor recur in different areas in the ureter and he may have to resort to other treatments later on but he wanted to see if he could save his kidney and avoid any major surgeries organ to proceed with endoscopic management of a distal ureteral tumor in the mid ureter difficult location. Patient was taken back to the operating room at the smooth induction of general anesthesia he was placed supine on the table I went in the bladder with a 21 [place] rigid cystourethroscope I grabbed the existing stent coming from the right ureteral orifice I advanced Super Stiff wire up the ureter left this in place and then next the wire I went with a flexible ureteroscope and then we used a 200 ?m thelium laser fiber and started treating the ureteral tumor I tried to hug the edge of the tumor and work my way back from visible ureteral channel back to block ureteral channel most of the channel was coming from the lateral aspect, the right lateral aspect of the ureter as a laser the tumor free I then used a basket to extract some of these fragments I continued the laser until I had thought I done complete lasering of the tumor was an extensive amount of cauterization not circumferentially but mostly 80% to 90% of the ureter on the right side with extensive cauterization at the end of the procedure and could not see any visible or visible tumor just a lot of scar tissue in the right side because of this is possible certainly that this ureter could scarred down and this could fail and he may need more definitive luis atment. After lasering the tumor completely and redoing resection of the tumor with the thelium laser and then place a stent is a 6 Far[place]ese by 26 cm stent stent coiled in the bladder kidney good position I then drained the bladder patient anesthetic was reversed and plan to see him back in about 2 weeks to review the tissue report and we did get tissue fragments from the lasering. Surgeon: nahid Type of Anesthesia: General Drains: stent right Admit VTE Documentation VTE Present on Admission: No VTE Mechan Device Prophylaxis: SCD's VTE Pharm Prophylaxis ordered?: No
[2021-07-06 14:15] VITALS: BP 126/82; BP 134/72; BP 139/89; PULSE 72; PULSE 76; RESP 16; TEMP 36.3; O2SAT 95; O2SAT 97
[2021-07-06 14:30] VITALS: BP 126/82; BP 134/72; PULSE 71; RESP 16; O2SAT 98
[2021-07-06 14:45] VITALS: BP 132/84; BP 134/72; PULSE 72; RESP 16; O2SAT 93
[2021-07-06 14:47] VITALS: BP 134/72; BP 142/83; PULSE 69; RESP 16; TEMP 36.3; O2SAT 98
[2021-07-06 15:40] VITALS: BP 130/92; BP 134/72; PULSE 72; RESP 18; TEMP 36.2; O2SAT 98
== END 2021-07-06 16:16 | disposition home or self-care (01) ==
LOC: SDC 10:29 → AC 10:29
PROVIDERS: PCP Internal Medicine; Referring Provider Urology; Visit Provider Urology
PROC: 0V508ZZ Destruction of Prostate, Via Natural or Artificial Opening Endoscopic (ICD-10-PCS; CPT 52648; principal; 2021-07-06 12:20)
DX: C66.1 Malignant neoplasm of right ureter (principal); J45.909 Unspecified asthma, uncomplicated; I10 Essential (primary) hypertension; M19.90 Unspecified osteoarthritis, unspecified site; G47.30 Sleep apnea, unspecified; E66.9 Obesity, unspecified; Z68.30 Body mass index [BMI] 30.0-30.9, adult; Z79.51 Long term (current) use of inhaled steroids; Z79.899 Other long term (current) drug therapy
CPT/HCPCS: 52332; 52354; 88305; J7120; C1758; C1769; C2617; J2405

== ENCOUNTER 2021-08-03 12:28 | Day surgery (SDC) | payer MEDICARE, OTHER, SELFPAY ==
--- NOTE | 2021-08-03 | CYSPIN_PTH ---
PATIENT: KASSI MARCIAL LOC: [facility] [place][id number] AGE/SX: 80/M ROOM: RE08/03/[address]: Dr. Jae Magaña MD : 1940 BED: DIS: 08/03/2021 SPEC #: [id number] RECD: 08/03/21 16:08 STATUS: JASWANT ISABEL #: [id number] FRIDA: 08/03/21 00:[address]: Jae Magaña DEPT: CYTOLOGY RECD BY: Ada Crespo ENTERED: 08/08/21 08:45 SP TYPE: CYSPIN FL OTHR DR: Dr. Oumou Mena MD Tissues: Urine Procedures: Pap Stain (control) Special Stain Group II Cytospin Fluid HEADER OPERATION: Cystoscopy PRE-OP DIAGNOSIS: Malignant neoplasm of right ureter TISSUE SUBMITTED: Urine DIAGNOSIS CYTOLOGY Urine for cytology (cytospin): Negative for malignant cells. See comment. COMMENT The specimen is paucicellular and consists of rare benign urothelial cells. Correlation with clinical findings and appropriate follow up are necessary. Please also correlate with corresponding surgical specimen [id number], right ureter, biopsy with diagnosis of negative for maignancy. CYTOLOGY STUDY Slides are reviewed. CYTOLOGY GROSS Received is <1 ml of clear colorless fluid labeled with the patient's name and and designated per the requisition as urine. Submitted for cytology preparation. MANAV:catalina 08/08/21 TC:5 CPT: 37890
[2021-08-03] MEDS: Lactated Ringers 1,000 ML 15 ML IV (12:10)
[2021-08-03 12:55] VITALS: BP 138/83; PULSE 64; RESP 16; TEMP 37.1; O2SAT 99; BMI 29.2
--- NOTE | 2021-08-03 14:30 | URE_PTH ---
PATIENT: KASSI MARCIAL LOC: [facility] – [place] U#:[id number] AGE/SX: 80/M ROOM: RE08/03/[address]: Dr. Jae Magaña MD : 1940 BED: DIS: 08/03/2021 SPEC #: [id number] RECD: 08/03/21 16:05 STATUS: JASWANT ISABEL #: [id number] FRIDA: 08/03/21 14:[address]: Jae Magaña DEPT: SURGICAL PATHOLOGY RECD BY: Ada Crespo ENTERED: 08/05/21 09:11 SP TYPE: URETER BX OTHR DR: Dr. Oumou Mena MD Tissues: Ureter, NOS Procedures: Surgery Specimen Level IV HEADER OPERATION: Ureteroscopy biopsy, insertion stent PRE-OP DIAGNOSIS: Malignant neoplasm of the right ureter TISSUE SUBMITTED: Right ureter MICROSCOPIC DIAGNOSIS Right ureter, biopsy: A minute fragment of urothelial mucosa with reactive changes. Negative for malignancy. COMMENT Correlation with clinical findings and appropriate follow up are necessary. MICROSCOPIC DESCRIPTION Slides are reviewed. GROSS DESCRIPTION Received is one container labeled with the patient name and designated right ureter. The specimen consists of one minute fragment of light mancini soft tissue that measures <0.1 cm in greatest dimension. The specimen is totally submitted in one cassette. /SJ:catalina 08/05/21 TC:5 CPT: 99808
[2021-08-03] MEDS: Cefazolin 2 GM in 0.9% Normal Saline 100 ML IV (15:15)
--- NOTE | 2021-08-03 15:48 | HP.PCM_ITS ---
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) History of echocardiogram History of edema History of stress test Mallet finger of left finger(s) Narcolepsy Non-smoker Obesity (BMI 30.0-34.9) Osteoarthritis Pancreatitis Skin cancer Sleep apnea Wears glasses Home Medications albuterol sulfate 1 puff INHALATION Q4H PRN PRN 06/10/17 [History Last Taken Unknown] modafinil 200 mg tablet 200 mg PO DAILY 01/13/20 [History Last Taken 07/06/21 07:00] mecobalamin (vitamin B12) 1,000 mcg disintegrating tablet,sublingual 1,000 mcg SUBLINGUAL QODAY 07/06/20 [History Last Taken Unknown] amlodipine 2.5 mg tablet 2.5 mg PO DAILY #90 tab 02/23/21 [Rx Last Taken 07/06/21 07:00] budesonide-formoterol HFA 160 mcg-4.5 mcg/actuation aerosol inhaler 1 puff INHALATION DAILY g 08/01/21 [History Last Taken Unknown] ciprofloxacin HCl [Cipro] 500 mg PO BID #10 tab 08/03/21 [Rx Last Taken Unknown] Allergy/AdvReac Type Severity Reaction Status Date / Time Penicillins Allergy Unknown Verified 08/01/21 11:37 Sulfa (Sulfonamide Allergy Unknown Verified 08/01/21 11:37 Antibiotics) Family History Mother CAD (coronary artery disease) Father Cancer Other CVA (cerebral vascular accident) Hypertension Surgical History H/O hernia repair H/O knee surgery H/O prostatectomy History of appendectomy History of cholecystectomy (02/29/20) History of ERCP History of malignant neoplasm of ureter (~07/06/21) History of radiofrequency ablation procedure for cardiac arrhythmia (03/17/08) Hx of cystoscopy Hx of total knee arthroplasty Hx of total knee arthroplasty Social History Smoking Status: Never smoker alcohol intake: current alcohol intake frequency: 0-2 drinks per day Alcohol type: beer and hard liquor substance use type: does not use what type of physical activity do you participate in: none Vital Signs Vital Signs Vital Signs: 08/03/21 12:55 Temperature 98.8 F Temperature Source Temporal Pulse Rate 64 Respiratory Rate 16 Respiratory Pattern Normal Blood Pressure 138/83 H Blood Pressure Mean 101 Blood Pressure Source Monitor Blood Pressure Position Semi-Fowlers Blood Pressure Location Right Arm Pulse Ox 99 Oxygen Delivery Method Room Air Weight Weight: 100.4 kg Body Mass Index (BMI) 29.2
--- NOTE | 2021-08-03 15:48 | EX.PCM.DISCH ---
Discharge Instructions Procedure Urology Diet Discharge Diet: No restrictions Activity Discharge Activity: Return to Normal Activity and May Not Drive (while taking narcotic pain medications.) Dressing / Incision Call your doctor if you observe: Fever of 101 or Higher Follow Up Care Please Follow Up With: Jae Magaña MD When: Call [phone] for an appointment Test Results: Test results from this visit will be discussed in further detail at your follow-up appointment, if applicable. Discharge Plan Admission Primary Reason for Your Visit: ureteral tumor Attending Provider: Jae Magaña Primary Care Provider: Oumou Mena Discharge Orders/Prescriptions Prescriptions: New ciprofloxacin HCl [Cipro] 500 mg tablet 500 mg PO BID Qty: 10 RF: 0 Continued mecobalamin (vitamin B12) 1,000 mcg tablet,disintegrating 1,000 mcg SUBLINGUAL QODAY RF: 0 budesonide-formoterol [Symbicort] 160-4.5 mcg/actuation HFA aerosol inhaler 1 puff INHALATION DAILY RF: 0 albuterol sulfate 1 INHALER inhaler 1 puff inhalation Q4H PRN PRN (Reason: Shortness Of Breath) RF: 0 modafinil 200 mg tablet 200 mg PO DAILY RF: 0 amlodipine 2.5 mg tablet 2.5 mg PO DAILY Qty: 90 RF: 1 Referrals / Follow Up: Jae Magaña MD [STAFF PHYSICIAN] - Oumou Mena MD [Primary Care Provider] - Disposition Disposition (needs filled in before D/C Order can be placed): Home, Self Care
--- NOTE | 2021-08-03 15:49 | OP.PCM_ITS ---
Report of Operation Date of Procedure: 08/03/21 Pre-Operative Diagnosis: Right ureteral tumor Post-Operative Diagnosis: Same Surgery/Procedure Performed:: Multiple procedures, cystoscopy and retrograde pyelogram with the ureter, right ureteroscopy biopsy of ureteral lesion. Cystoscopy and right stent placement, interpretation of fluoroscopic images. 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 Patient understands that if even if there is no residual tumor seen today and the biopsy is negative he does have a high chance of recurrence and will need close surveillance he is elected endoscopic management for this ureteral cancer instead of removal of the ureter in order to save his kidney and also is a major surgery in this elderly gentleman. Patient was taken back to the operating room, after smooth induction of general anesthesia he was placed in dorsolithotomy position. The penis and testicles were prepped and draped in usual sterile fashion, after draping the patient, we then went into the bladder with a 21 [place] rigid cystourethroscope the entire length of the urethra was normal the prostate was normal with slight hypertrophy but no obstruction inside the bladder I did a cystoscopy looking the entire [place] of the bladder and there were no visible tumors within the bladder and no stones or lesions. I then saw the stent emanating from the right ureteral orifice and used a grasper to grab the existing stent pulled out the meatus and over the stent I then advanced a 0.038 Glidewire hydrophilic up to the kidney under fluoroscopic guidance. I then advanced the ureteral catheter into the ureter and injected about 10 cc of normal saline into the ureter we then colle cted urine coming from the ureteral catheter in the ureter this urine was sent off for cytology. After performing the cytology collection I then did a retrograde pyelogram and injected full-strength contrast into the ureter and followed the contrast all the way up to the kidney there was a nice smooth injection of contrast going all the way up and then there was pretty brisk drainage of contrast coming down the ureter with no stricture or obstruction of contrast coming down the ureter look nice and clear and no extravasation of contrast as well. Interpretation of fluoroscopic images radiopaque material was injected into the ureter the contrast went up the ureter nice and smooth no filling defects and then the contrast drained down the ureter without any interruption no extravasation of the contrast nice smooth ureter no filling defects were noted. After the retrograde pyelogram was performed then I went into the ureter with a ureteroscope I went up the ureter to the area where the prior tumor had been resected this area looks fairly open I took 2 photographs and basically saw 2 areas that look like they were healing there were no active papillary lesions visible there was some area of raw tissue in the edge of the ureter but no clear recurrence of tissue and no persistence of tissue was noted again it was still healing and raw. I then used a ureteroscopic biopsy forcep advanced it through the ureteroscope came to the area where it was a little raw in the ureter and just to get a biopsy to confirm a biopsy was done we pulled out the ureteroscopic biopsy forcep and the tissue was collected on a Telfa and encircled with marker since it was a very small sample. After the biopsy was done then at this point I decided to inspect again with the ureteroscope which I did again no visible tumors were seen a look clear and open but I did decide to put a stent and since it appeared that the ureter still needed to heal up some more before going without a stent stent in order to allow this to heal up. There was no stricture but I wanted to make sure that the area would heal completely so then I backloaded a wire through the ureteroscope and then backed off the ureteroscope off the ureter and then over the wire I backloaded the cystoscope back into the bladder and then I pushed the stent up into the kidney we took the string off the stent so would not prevent early extraction and then pulled the wire and the stent coiled in the kidney and bladder in good position under fluoroscopic guidance I then drained the bladder patient's anesthetic was reversed we sent the urine for cytology also the biopsy was sent off in formalin and I will go talk to the family regarding the findings the plan at this point would be to have the patient come back in 6 weeks for another ureteroscopic check possible biopsy and hopefully at that point we can remove the stent and the ureter should be fully healed. Surgeon: nahid Type of Anesthesia: General Drains: stent right side Admit VTE Documentation VTE Present on Admission: No VTE Mechan Device Prophylaxis: SCD's VTE Pharm Prophylaxis ordered?: No
[2021-08-03 15:57] VITALS: BP 132/65; BP 138/83; PULSE 58; RESP 16; TEMP 37.4; O2SAT 94
[2021-08-03 16:00] VITALS: BP 131/81; BP 138/83; PULSE 63; RESP 16; O2SAT 95
[2021-08-03 16:15] VITALS: BP 122/68; BP 138/83; PULSE 67; RESP 16; O2SAT 96
[2021-08-03 16:25] VITALS: BP 138/83; BP 143/96; PULSE 67; RESP 16; TEMP 36.5; O2SAT 96
[2021-08-03 16:54] VITALS: BP 138/83
[2021-08-08 08:40] LABS: Cytology, Body Fluid / CSF SEE PATHOLOGY REPORT
== END 2021-08-03 16:58 | disposition home or self-care (01) ==
LOC: SDC 12:39 → AC 12:41
PROVIDERS: PCP Internal Medicine; Referring Provider Urology; Visit Provider Urology
PROC: (CPT 50575; principal; 2021-08-03 14:20)
DX: D49.59 Neoplasm of unspecified behavior of other genitourinary organ (principal); J45.909 Unspecified asthma, uncomplicated; I10 Essential (primary) hypertension; M19.90 Unspecified osteoarthritis, unspecified site; G47.30 Sleep apnea, unspecified; E66.9 Obesity, unspecified; Z68.29 Body mass index [BMI] 29.0-29.9, adult; Z79.51 Long term (current) use of inhaled steroids; Z79.899 Other long term (current) drug therapy
CPT/HCPCS: 52332; 52354; 76000; 87086; 88108; 88305; 88313; C1769; C2617; J2405

== ENCOUNTER 2021-09-23 07:44 | Day surgery (SDC) | payer MEDICARE, OTHER, SELFPAY ==
--- NOTE | 2021-09-23 | BLA_PTH ---
PATIENT: KASSI MARCIAL [place] [facility] [place][id number] AGE/SX: 80/M ROOM: RE09/23/[address]: Dr. Jae Magaña MD : 1940 BED: DIS: 09/23/2021 SPEC #: [id number] RECD: 09/26/21 11:55 STATUS: JASWANT ISABEL #: [id number] FRIDA: 09/23/21 00:[address]: Jae Magaña DEPT: SURGICAL PATHOLOGY RECD BY: Taiwo Suarez ENTERED: 09/26/21 12:40 SP TYPE: BLADDER BX OTHR DR: Dr. Oumou Mena MD Tissues: Urinary bladder, NOS Procedures: Surgery Specimen Level V HEADER OPERATION: Right ureteroscopy, retrograde pyelogram, removal ureteral PRE-OP DIAGNOSIS: History right ureteral tumor plus bladder tumor TISSUE SUBMITTED: Bladder tumor MICROSCOPIC DIAGNOSIS Bladder tumor, TUR: Papillary urothelial carcinoma. See cancer summary in the comment section. SJ:rg 09/27/2021 COMMENT BLADDER CANCER (TUR) SUMMARY Procedure: Transurethral resection of bladder (TURBT) Tumor site: Not specified Histologic type: Papillary urothelial carcinoma, noninvasive Associated epithelial lesions: None identified Histologic grade: Low grade with focal area of high grade (2-3/3) Tumor configuration: Papillary Muscularis propria presence: No muscularis propria (detrusor muscle) is identified. Lymphvascular invasion: Not identified Tumor extension: Noninvasive papillary carcinoma. Additional pathologic findings: None The above summary is in compliance with [employer] (CAP) Cancer Protocols Checklist and [place] [employer] Committee on Cancer (AJCC), Staging Manual, 8th Ed. Please make reference to previous specimens ([id number]) urine for cytology with diagnosis of ?positive for malignant cells consistent with urothelial carcinoma? and ([id number]) ureteral tumor, biopsy and ([id number]) right ureteral tumor, biopsy with diagnosis of ?papillary urothelial carcinoma.? Case has been reviewed in consultation with Dr. Morrow who concurs with the above diagnosis. IDC:AM MICROSCOPIC DESCRIPTION Slides are reviewed. GROSS DESCRIPTION Received in fixative is one container labeled with the patient's name and designated bladder tumor. The specimen consists of two irregular fragments of light mancini soft tissue that in aggregate measure 0.3 x 0.2 x 0.1 cm. The specimen is totally submitted in one cassette. / PANTERA:shantel 09/26/2021 TC:0 CPT: 25421
[2021-09-23 08:05] VITALS: BP 142/74; PULSE 74; RESP 18; TEMP 36.2; O2SAT 99; BMI 30.8
[2021-09-23] MEDS: Lactated Ringers 1,000 ML 15 ML IV (08:05)
--- NOTE | 2021-09-23 10:23 | PCM.HP.STD ---
HPI - General HPI Narrative KASSI MARCIAL, is a 80 M who presents for diagnostic right ureteroscopy possible biopsy possible retrograde pyelogram and stent placement he has a history of a ureteral tumor and he had a resection done and comes in for an evaluation. 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) History of echocardiogram History of edema History of stress test Mallet finger of left finger(s) Narcolepsy Non-smoker Obesity (BMI 30.0-34.9) Osteoarthritis Pancreatitis Skin cancer Sleep apnea Wears glasses Home Medications albuterol sulfate 1 puff INHALATION Q4H PRN PRN 06/10/17 [History Last Taken Unknown] modafinil 200 mg tablet 200 mg PO DAILY 01/13/20 [History Last Taken 07/06/21 07:00] mecobalamin (vitamin B12) 1,000 mcg disintegrating tablet,sublingual 1,000 mcg SUBLINGUAL QODAY 07/06/20 [History Last Taken Unknown] budesonide-formoterol HFA 160 mcg-4.5 mcg/actuation aerosol inhaler 1 puff INHALATION DAILY g 08/01/21 [History Last Taken Unknown] amlodipine 2.5 mg tablet 2.5 mg PO DAILY #90 tab 08/23/21 [Rx Last Taken 09/23/21 06:30] ciprofloxacin HCl [Cipro] 500 mg PO BID #6 tab 09/23/21 [Rx Last Taken Unknown] Allergy/AdvReac Type Severity Reaction Status Date / Time Penicillins Allergy Unknown Verified 09/23/21 08:10 Sulfa (Sulfonamide Allergy Unknown Verified 09/23/21 08:10 Antibiotics) Family History Mother CAD (coronary artery disease) Father Cancer Other CVA (cerebral vascular accident) Hypertension Surgical History H/O hernia repair H/O knee surgery H/O prostatectomy History of appendectomy History of cholecystectomy (02/29/20) History of ERCP History of malignant neoplasm of ureter (~07/06/21) History of radiofrequency ablation procedure for cardiac arrhythmia (03/17/08) Hx of cystoscopy Hx of total knee arthroplasty Hx of total knee arthroplasty Social History Smoking Status: Never smoker alcohol intake: current alcohol intake frequency: 0-2 drinks per day Alcohol type: beer and hard liquor substance use type: does not use what type of physical activity do you participate in: none Vital Signs Vital Signs Vital Signs: 09/23/21 08:05 Temperature 97.1 F L Temperature Source Temporal Pulse Rate 74 Respiratory Rate 18 Respiratory Pattern Normal Blood Pressure 142/74 H Blood Pressure Mean 96 Blood Pressure Source Monitor Blood Pressure Position Sitting Blood Pressure Location Left Arm Pulse Ox 99 Oxygen Delivery Method Room Air Weight Weight: 103 kg Body Mass Index (BMI) 30.8
--- NOTE | 2021-09-23 10:23 | PCM.DC ---
Discharge Instructions Diet Discharge Diet: No restrictions Activity Discharge Activity: Return to Normal Activity and May Not Drive (while taking narcotic pain medications.) Dressing / Incision Call your doctor if you observe: Fever of 101 or Higher Follow Up Care Please Follow Up With: Jae Magaña MD When: Call [phone] for an appointment Test Results: Test results from this visit will be discussed in further detail at your follow-up appointment, if applicable. Discharge Plan Admission Primary Reason for Your Visit: Ureteroscopy and stent Attending Provider: Jae Magaña Primary Care Provider: Oumou Mena Discharge Orders/Prescriptions Prescriptions: New ciprofloxacin HCl [Cipro] 500 mg tablet 500 mg PO BID Qty: 6 RF: 0 Continued mecobalamin (vitamin B12) 1,000 mcg tablet,disintegrating 1,000 mcg SUBLINGUAL QODAY RF: 0 budesonide-formoterol [Symbicort] 160-4.5 mcg/actuation HFA aerosol inhaler 1 puff INHALATION DAILY RF: 0 albuterol sulfate 1 INHALER inhaler 1 puff inhalation Q4H PRN PRN (Reason: Shortness Of Breath) RF: 0 modafinil 200 mg tablet 200 mg PO DAILY RF: 0 amlodipine 2.5 mg tablet 2.5 mg PO DAILY Qty: 90 RF: 3 Referrals / Follow Up: Jae Magaña MD [STAFF PHYSICIAN] - Oumou Mena MD [Primary Care Provider] - Disposition Disposition (needs filled in before D/C Order can be placed): Home, Self Care
--- NOTE | 2021-09-23 11:02 | OP.PCM_ITS ---
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 Description of Surgical Findings:: 80-year-old male with a history of a recent diagnosis of a right ureteral tumor because of this he underwent ureteroscopy and laser of this tumor and removal of the tumor last ureteroscopy and biopsy showed no recurrence within the ureter and we left the stent and allow it to hopefully heal my concern was that it is possible that even though I resected the entire tumor in the ureter given its location and its size that the ureter may not heal properly and may scar down causing obstruction and stricture which then may cause problems with the drainage of the right kidney he may end up needing the distal ureter removed anyways and the reimplantation. Also we can look inside the bladder and do his diagnostic cystoscopy. Patient was taken back to the operating room after smooth induction of general anesthesia he was placed in dorsolithotomy position. The penis and testicles were prepped and draped in usual sterile fashion. I prepared a 21 [place]ian rigid cystourethroscope I went inside the urethra into the bladder the entire length the urethra was normal the pendulous urethra was normal the bulbar urethra is normal the sphincter was intact the prostate had been resected from prior TURP wide open channel. He does have somewhat of a stretched out bladder and some bladder signs of bladder chronic atony. Then inside the bladder there was a stent emanating from the right ureteral orifice I used a grasper and grabbed the end of the stent and pulled it out gently to the end of the meatus then through the stent and advanced a 0.038 Glidewire that coiled up in the kidney under fluoroscopic guidance. Then over the Glidewire I went in with a 8 Bahamian flexible ureteroscope was able to get into the bladder easily and then into the distal ureter easily as I went up I encountered the area where the tumor was there was a somewhat of a scar could get through that area with the ureteroscope a slightly tight and then went up to the kidney inspected the upper pole midpole lower pole kidney there was no tumors within the renal pelvis no tumors along the course of the ureter down to the area of the tumor and resected this resection site was about 4 cm from the distance from the bladder from the ureterovesical junction. I then went back to the area I did not see any tumors or papillary tumors but there was some scar tissue could tell I then did a retrograde pyelogram. I pulled out the ureteroscope went back in with a 21 [place]ian rigid cystourethroscope I cannulated the right ureter orifice with a Pollick catheter I injected contrast and went up to the area with the tumor was in the contrast had a difficult time getting through the area and then I advanced a Pollick catheter further up and we got near the area where the tumor was then the contrast went up to the kidney and in the kidney filled with contrast I took out the Pollick catheter and you could see contrast draining from the ureter and contrast coming down the ureter but it certainly was slower than normal but it was draining so I decided not to put the stent back into see how the patient would do it is possible this may fail he may need to have a stent back in and we may have to consider doing a distal ureterectomy and reimplantation not because of tumor but because of the ureter had scarred down from the resection of this endoscopic resection which was very difficult before. I then inspected the bladder and unfortunately the back of the bladder there were several tumors in the back of the bladder identified 3 papillary tumors then switched over to resect these tumors and I grabbed the first 1 and all 3 tumors that were visible were removed and sent off as a specimen they appear to be low-grade papillary noninvasive tumors after these tumors were taken out then I used the Bugbee electrode I cauterized the base of the tumors that they were resected tumors were quite small about 1 cm in size the largest. Then using the bluelight cystoscopy and white light cystoscopy I went to the bladder and very carefully cauterize anything that looks suspicious like a tumor and sent there was multiple lesions within the bladder that been resected and then after close inspection of the entire bladder I felt like I did cauterize everything that looked suspicious even at the end as I could not looked around I did find another tumor that was right next to the prior tumor was difficult to see but I also cauterized this tumor. After cauterizing all the tumors making sure that there was no more visible tumors in the bladder I think the patient may have to have BCG therapy to prevent more tumors in the bladder or Mitomycin-C therapy of the discussed with the patient intravesical therapy and of course the distal ureter on the right side may scarred down and he may need to have that ureter just removed and the reimplantation of the ureter into the bladder. I called and left a message with his patient anesthetic is being reversed plan to see him back in the office for 2 to 3 weeks for follow-up. Type of Anesthesia: General Drains: none Admit VTE Documentation VTE Present on Admission: No VTE Mechan Device Prophylaxis: SCD's VTE Pharm Prophylaxis ordered?: No
[2021-09-23 11:15] VITALS: BP 142/74; BP 151/90; PULSE 69; RESP 16; TEMP 36.5; O2SAT 98
[2021-09-23 11:30] VITALS: BP 142/74; BP 147/90; PULSE 63; RESP 16; O2SAT 97
[2021-09-23 11:45] VITALS: BP 142/74; BP 142/99; PULSE 62; RESP 18; O2SAT 98
[2021-09-23 12:00] VITALS: BP 129/83; BP 142/74; PULSE 66; RESP 18; TEMP 36.1; O2SAT 100
[2021-09-23] MEDS: Ibuprofen 600 MG Tablet PO (12:34)
[2021-09-23] MEDS: Acetaminophen 325 MG Tablet 650 MG PO (12:41)
[2021-09-23 12:51] VITALS: BP 142/74
== END 2021-09-23 23:59 | disposition home or self-care (01) ==
LOC: SDC 07:48 → AC 07:48
PROVIDERS: PCP Internal Medicine; Referring Provider Urology; Visit Provider Urology
PROC: (CPT 52332; principal; 2021-09-23 09:40)
DX: C67.9 Malignant neoplasm of bladder, unspecified (principal); I10 Essential (primary) hypertension; J45.909 Unspecified asthma, uncomplicated; G47.419 Narcolepsy without cataplexy; M19.90 Unspecified osteoarthritis, unspecified site; G47.30 Sleep apnea, unspecified; E66.9 Obesity, unspecified; Z68.30 Body mass index [BMI] 30.0-30.9, adult; Z79.899 Other long term (current) drug therapy; Z85.46 Personal history of malignant neoplasm of prostate
CPT/HCPCS: 52310; 52234; 52005; 00910; 88305; 88307; C1769; J2405

== ENCOUNTER 2021-11-18 05:59 | Inpatient (IN) | payer MEDICARE, OTHER, SELFPAY ==
[2021-11-10 07:45] LABS: Hematocrit 39.2 % (40-54); Hemoglobin 13.3 g/dL (13.0-16.5); Mean Corp Hgb Conc 33.9 g/dL (32-36); Mean Corpuscular Hgb 33.6 pg (27.0-32.0); Mean Platelet Vol. 10.2 fl (6.2-12.0); Platelet Count 182 K/mm3 (150-450); RBC Distribution Width CV 12.3 % (11.6-14.6); Red Blood Count 3.96 M/mm3 (4.6-6.2)
[2021-11-10 08:05] LABS: Anion Gap 4 (5-15); BUN 19 mg/dL (7-18); BUN/Creat Ratio 12.6 RATIO (10-20); Calcium,Total 8.9 mg/dL (8.5-10.1); Chloride 109 mmol/L (98-107); Creatinine, Serum 1.51 mg/dL (0.70-1.30); EST Glomerular Filtration Rate 48 mL/min (>60); Est Glom Filt Rate - Afr Amer 58 mL/min (>60); Glucose 103 mg/dL (74-106); Potassium 4.5 mmol/L (3.5-5.1); Sodium Level 140 mmol/L (136-145)
[2021-11-18] VITALS (10 sets, daily range): BP systolic 128–167; BP diastolic 58–96; PULSE 69–88; RESP 14–18; TEMP 36.4–37.3; O2SAT 93–98; BMI 30.4
--- NOTE | 2021-11-18 | IMM_PTH ---
PATIENT: KASSI MARCIAL LOC: MS3 U#:[id number] AGE/SX: 80/M ROOM: [facility] RE11/18/[address]: Dr. Jae Magaña MD : 1940 BED: 1 DIS: 11/20/2021 SPEC #: [id number] RECD: 11/22/21 14:21 STATUS: JASWANT ISABEL #: [id number] FRIDA: 11/18/21 00:[address]: Jae Magaña DEPT: IMMUNOHISTOCHEMISTRY RECD BY: Nancy Maza ENTERED: 11/22/21 14:25 SP TYPE: IMMUNO OTHR DR: Dr. Oumou Mena MD Tissues: B - Right ureter Procedures: RCC (add) NAPSIN A (add) Radu Ret (add) CK14 (add) CK20 (add) CK5-6 (add) CK7 (add) CK8 (add) LOPEZ-2 (add) HEP PAR (add) KI-67 (add) P53 (add) TTF1 (add) Pankeratin (initial) P40 (add) CDX2 (add) CD44 (add) PSAP (add) PHYSICIAN & [place] [id number] SPECIMEN INFORMATION: Tissue Source: B ? Right ureter with lymph nodes Clinical Info: Malignant neoplasm of right ureter and overlapping sites of bladder Specimen Number: [id number] CPT code: 24593, 01354 x17 METHODOLOGY: Deparaffinized sections of prefer/formalin-fixed tissue or PAP/DQ stained slides are incubated with monoclonal/polyclonal antibodies/oligonucleotide probes. Localization is made via biotin free immunoperoxidase method. Appropriate controls are performed and reacted as expected. Results on target cell population are indicated in the following table: RESULTS: ANTIBODY / CLONE RESULT Block B5 AE1-3 (AE1/AE3/PCK26) positive CK7 (OV-TL12/30) positive CK8 (97lzxeS05) positive CK20 (KS20.8) positive, focal LOPEZ-2 (SP21) positive CDX2 (HYC1276L) negative TTF-1 (8G7G3/1) negative Napsin A (Rabbit Polyclonal) positive, focal HepPar (OCh1E5) negative RCC (PN-15) negative PSAP (PASE/4LJ) negative CALRET (polyclonal) negative anti-CD44 (SP37) positive CK5-6 (D5 & 1684) positive CK14 (LL002) positive P40 (BC28) positive P53 (DO-7) positive, >90% Ki-67 (30-9) positive, ~50% These tests were developed and their performance characteristics determined by [facility]. They may not have been cleared or approved by the U.S. Food and Drug Administration. The FDA has determined that such clearance or approval is not necessary. The above immunohistochemical/dualISH markers are ordered and reviewed by the Pathologist. INTERPRETATION: B. Right ureter with lymph nodes, segmental excision: Consistent with invasive urothelial carcinoma. AM:shantel 11/23/2021
[2021-11-18] MEDS: Lactated Ringers 1,000 ML 15 ML IV ×2 (06:44→11:15)
--- NOTE | 2021-11-18 07:30 | LYM_PTH ---
PATIENT: KASSI MARCIAL LOC: MS3 U#:[id number] AGE/SX: 80/M ROOM: [facility] [place] RE11/18/[address]: Dr. Jae Magaña MD : 1940 BED: 1 DIS: 11/20/2021 SPEC #: [id number] RECD: 11/18/21 13:33 STATUS: JASWANT ISABEL #: [id number] FRIDA: 11/18/21 07:[address]: Jae Magaña DEPT: SURGICAL PATHOLOGY RECD BY: Lilian Corbett ENTERED: 11/21/21 08:40 SP TYPE: LYM NODES OTHR DR: Dr. Oumou Mena MD Tissues: A - Lymph node of pelvis, NOS B - Lymph node of pelvis, NOS Procedures: Surgery Specimen Level V HEADER OPERATION: Lap robotic distal ureterectomy, ureteroneocystotomy PRE-OP DIAGNOSIS: Malignant neoplasm of right ureter, malignant neoplasms of overlapping sites of bladder TISSUE SUBMITTED: A ? Right pelvic lymph nodes, B ? Right ureter with lymph nodes MICROSCOPIC DIAGNOSIS A. Right pelvic lymph nodes, biopsy: Three out of three lymph nodes with no pathologic change. B. Right ureter with lymph nodes, segmental excision: Infiltrating carcinoma consistent with urothelial origin. Three out of three lymph nodes negative for carcinoma. See comment. AM:shantel 11/22/2021 COMMENT B. Immunohistochemistry ([id number]) supports the above diagnosis. RENAL PELVIS AND URETER CANCER SUMMARY Procedure - ureterectomy Specimen laterality ? right Tumor site - ureter Tumor size: Greatest dimension ? 6 cm Additional dimensions ? 1.5 x 1.3 cm Histologic type ? urothelial carcinoma, invasive and urothelial carcinoma in situ. Histologic grade ? high grade Tumor extension ? tumor invades beyond muscularis into periureteral fat. Margins: Involved by invasive carcinoma ? focal circumferential margin (see comment). Lymphvascular invasion ? not identified Regional lymph nodes - Number of lymph nodes involved - 0 Number of lymph nodes examined ? 6 (inclusive of specimens ?A? and ?B?) Additional pathologic findings ? focal urothelial dysplasia at urothelial margin (see comment). PATHOLOGIC STAGE: T2 No Mx The above summary is in compliance with [employer] (CAP) Cancer Protocols Checklist and [place] Joint Committee on Cancer (AJCC), Staging Manual, 8th Ed. The infiltrating, high-grade urothelial carcinoma measures approximately 6 .0 x 1.5 x 1.3cms (measured from glass slides) and shows squamoid differentiation. The carcinoma is focally noted at the circumferential, inked soft tissue margin of excision in the mid portion of the ureter. No angiolymphatic invasion is seen. The ureteral margin section from the narrow end shows focal dysplastic urothelium but no invasive carcinoma is seen in this section. The ureteral margin section from the opposite end contains focal invasive carcinoma and high-grade urothelial carcinoma in situ, Clinical correlation is suggested. Reference is made to the patient?s right ureteral tumor biopsy ([id number]) in which papillary urothelial carcinoma was identified. Reference is also made to the patient?s urinary bladder TUR ([id number]) in which papillary urothelial carcinoma was identified. MICROSCOPIC DESCRIPTION Slides are reviewed. GROSS DESCRIPTION A - Received in fixative is one container labeled with the patient's name and designated right pelvic lymph node. The specimen consists of multiple pieces of yellow adipose tissue that in aggregate measure 3.5 x 2 x 0.5 cm. Two lymph nodes are identified measuring 0.5 and 2 cm in greatest dimension. The entire specimen is submitted in two cassettes as follows: 1 - two lymph nodes sectioned, 2 - rest of the specimen. B - Received in fixative is one container labeled with the patient's name and designated right ureter with lymph nodes. The specimen consists of a ureter with surrounding adipose tissue measuring 8 cm in length and 0.5 cm in diameter. The specimen is not oriented. One end of the tissue shows attached adipose tissue which measures up to 3 cm in width. The specimen is not oriented for proximal or distal margin. One of the narrow margins is inked blue. The opposite margin is inked green. Sections of the ureter shows an obliterated lumen. Also present in the container are two detached pieces of adipose tissue measuring in aggregate 2.5 x 1.5 x 0.5 cm. One of the pieces show lymph node and it is bisected. The entire specimen is submitted in ten cassettes as follows: 1-9 - ureter (1 contains the narrow portion of the ureter with the margin inked blue and 9 contains the opposite end of the ureter with margin inked green and detached pieces of tissue), 10 - one bisected lymph node. / SJ:rg 11/21/2021 TC:0 CPT: 86767 x2
[2021-11-18] MEDS: Lubricating Jelly 60 GM Tube 30 GM (07:40)
[2021-11-18] MEDS: Cefazolin 2 GM in 0.9% Normal Saline 100 ML IV (07:53)
--- NOTE | 2021-11-18 08:37 | HP.PCM_ITS ---
HPI - General General Date of Admission: 11/18/21 HPI Narrative KASSI MARCIAL, is a 80 M who presents for resection of distal ureter. 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) History of echocardiogram History of edema History of stress test Mallet finger of left finger(s) Narcolepsy Non-smoker Obesity (BMI 30.0-34.9) Osteoarthritis Pancreatitis Skin cancer Sleep apnea Wears glasses Home Medications albuterol sulfate 1 puff INHALATION Q4H PRN PRN 06/10/17 [History Last Taken 11/18/21 04:30] modafinil 200 mg tablet 200 mg PO DAILY 01/13/20 [History Last Taken 07/06/21 07:00] mecobalamin (vitamin B12) 1,000 mcg disintegrating tablet,sublingual 1,000 mcg SUBLINGUAL QODAY 07/06/20 [History Last Taken Unknown] budesonide-formoterol HFA 160 mcg-4.5 mcg/actuation aerosol inhaler 1 puff INHALATION DAILY g 08/01/21 [History Last Taken Unknown] amlodipine 2.5 mg PO DAILY 11/09/21 [History Last Taken 11/18/21 04:30] Allergy/AdvReac Type Severity Reaction Status Date / Time Penicillins Allergy Unknown Verified 11/18/21 06:32 Sulfa (Sulfonamide Allergy Unknown Verified 11/18/21 06:32 Antibiotics) Family History Mother CAD (coronary artery disease) Father Cancer Other CVA (cerebral vascular accident) Hypertension Surgical History (Updated 11/09/21 @ 14:42 by Radha Poon) H/O hernia repair H/O knee surgery H/O prostatectomy History of appendectomy History of cholecystectomy (02/29/20) History of cystoscopy History of ERCP History of malignant neoplasm of ureter (~07/06/21) History of radiofrequency ablation procedure for cardiac arrhythmia (03/17/08) Hx of cystoscopy Hx of total knee arthroplasty Hx of total knee arthroplasty Social History Smoking Status: Never smoker alcohol intake: current alcohol intake frequency: 0-2 drinks per day Alcohol type: beer and hard liquor substance use type: does not use what type of physical activity do you participate in: none Vital Signs Vital Signs Vital Signs: 11/18/21 06:36 Temperature 99.1 F Temperature Source Temporal Pulse Rate 69 Respiratory Rate 16 Respiratory Pattern Normal Blood Pressure 128/74 H Blood Pressure Mean 92 Blood Pressure Source Monitor Blood Pressure Position Semi-Fowlers Blood Pressure Location Right Arm Pulse Ox 98 Oxygen Delivery Method Room Air Weight Weight: 102 kg Body Mass Index (BMI) 30.4 Results Lab / Micro Data Result Diagrams: 11/10/21 07:06 11/10/21 07:06
[2021-11-18] MEDS: Bupivacaine Mpf 0.5% 30 ML VIAL (11:45)
--- NOTE | 2021-11-18 11:47 | PCM.DC ---
Discharge Instructions Diet Discharge Diet: No restrictions Activity Discharge Activity: Return to Normal Activity and May Not Drive (while taking narcotic pain medications.) Dressing / Incision Call your doctor if you observe: Fever of 101 or Higher Follow Up Care Please Follow Up With: Jae Magaña MD When: Call [phone] for an appointment Test Results: Test results from this visit will be discussed in further detail at your follow-up appointment, if applicable. Discharge Plan Admission Admit Date/Time: 11/18/21 05:59 Primary Reason for Your Visit: removal of ureteral tumor right side Attending Provider: Jae Magaña Primary Care Provider: Oumou Mena Discharge Orders/Prescriptions Prescriptions: New ciprofloxacin HCl [Cipro] 500 mg tablet 500 mg PO BID Qty: 14 RF: 0 oxycodone-acetaminophen 5-325 mg tablet 1 tab PO Q6H PRN (Reason: pain) 7 Days Qty: 14 RF: 0 Continued mecobalamin (vitamin B12) 1,000 mcg tablet,disintegrating 1,000 mcg SUBLINGUAL QODAY RF: 0 budesonide-formoterol [Symbicort] 160-4.5 mcg/actuation HFA aerosol inhaler 1 puff INHALATION DAILY RF: 0 albuterol sulfate 1 INHALER inhaler 1 puff inhalation Q4H PRN PRN (Reason: Shortness Of Breath) RF: 0 modafinil 200 mg tablet 200 mg PO DAILY RF: 0 amlodipine 2.5 mg tablet 2.5 mg PO DAILY RF: 0 Referrals / Follow Up: Jae Magaña MD [STAFF PHYSICIAN] - Oumou Mena MD [Primary Care Provider] -
--- NOTE | 2021-11-18 11:47 | PCM.OPRPT ---
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 Laparoscopic robotic assisted right distal ureterectomy and removal of the partial ureter and reimplantation of the ureter with a right ureteral neocystotomy, formation of a psoas hitch and a Boari flap for a ureterneocystotomy. Pelvic lymph node dissection on the right pelvic lymph nodes complete. Right stent placement. Description of Surgical Findings:: 80-year-old male who has a history of a tumor in the distal ureter we have attempted endoscopic management of this tumor however he is failing the management as in the office was found to have severe right hydronephrosis so I expect that the tumor is coming back or the ureter scarring down so we plan to do complete removal of the tumor organ to do a partial ureterectomy on the right side and the reimplantation of the ureter into the bladder. Plan to take the patient to the operating room and today we can do a cystoscopy evaluate the bladder evaluate the ureter see the extent of the disease and then we plan to proceed with a laparoscopic robotic assisted removal the distal ureter and reimplantation of the ureter into the bladder. Patient was taken back to the operating room after smooth induction of general anesthesia he was placed in dorsolithotomy position. The penis and testicles were prepped and draped in usual sterile fashion I first went into the bladder with a 21 Tristanian rigid cystourethroscope on inspecting the bladder there was a very small papillary tumor in the base of the bladder this was recognized immediately I inspected the bladder completely there were other no other papillary tumors no other lesions seen in the bladder there was 1 reddish lesion in the dome of the bladder. I then put in the resectoscope in the bladder and cauterized and resected the small tumor and also cauterized the lesion in the dome of the bladder we then put in the 21 Tristanian rigid scope back in the bladder and then advanced a wire up into the right kidney performed a retrograde pyelogram can see contrast going up and then it would stop and not go any further no contrast was going past the area where the tumor was 100% blockage of that area. So then at this point attempted to put a wire past but I could not put a wire past the area I went in with a ureteroscope went up the ureter with ureteroscope and saw that there was ureter was completely occluded with the lumen 100% occlusion no way to get past. I then placed the resectoscope in the bladder I switched to a fine needle resectoscope I used this to then resect the ureteral orifice all the way around circumferentially resecting the ureteral orifice to allow for removal of the distal ureter as I resected this then the ureter was completely free I had gotten to fat all the way around the ureter I could see the the orifice. Affect was done resecting the orifice and around the orifice circumferentially then I proceeded with the second part of the procedure. So this point I have pulled out the ureteroscope and the patient was then reprepped and draped for a laparoscopic approach using the da Ellie robotic assisted system to plan for distal ureterectomy on the right side. Using the Veress needle we went into the abdomen and placed the camera trocar right arm trocar left arm trocar in the second right arm trocar and air seal port the patient was placed in severe trend Trendelenburg position I freed up the colon on the lateral sidewall this allowed the retraction of the colon away from the area working on the right side I then dissected in the right side over the crossing vessels until it identified the dilated large right ureter this area was extremely stuck as is trying to dissect underneath the ureter it was extremely stuck I had to dissect this tissue off the iliac artery branches coming off to freed up I do do a wide dissection in the area to keep all the tissue that was stuck to the ureter. Once this was freed up then then I dissected underneath the ureter finally we got to healthy ureter beyond the area that was super scarred in and they traces all the way down to the bladder and then I was a able to dissect all the way to the bladder until the ureter came off and prior resection I resected around the ureteral orifice with this came off the bladder nicely. A clip was placed on the ureter to prevent spillage of any urine into the abdomen I then performed a lymph node dissection in the right pelvic side identified the vein I took out the pelvic lymph nodes in the right side this was sent off as a separate specimen the lymph nodes were slightly large but appear to be normal and then all the lymph nodes in the right side was removed from the blind stitch machine operator space, after the completely lymph node dissection was done then I placed a red loop around the ureter put a clip on this to tighten up to prevent any spillage of urine from the ureter I then prepared the bladder for the anastomosis between the healthy ureter and the bladder I created the space of Retzius dissected above the bladder I then dissected the right pedicle of the bladder and then the bladder was brought over to the right hemipelvis above the psoas pulling the bladder and tension using 3-0 Vicryl stitches then the bladder was tacked to the psoas muscle on the right side creating a psoas hitch hitch in the bladder to prevent tension for the anastomosis. Then I looked at the ureter I cut the ureter and we put the ureteral tumor into an Endo Catch bag immediately this is left in a sealed Endo Catch bag and then I looked at the ureter the ureter unfortunate would not reach the bladder given the length of ureter at the cut off to ensure adequate margins so then at this point I decided to proceed with a Boari flap I measured out the flap and then incised the bladder opened up the flap of the bladder and then flap the bladder towards the ureter we then approximated the edge of the flap to the bottom part of the ureter and then slowly using 3-0 Vicryl stitches approximated the ureteral end to the Boari flap so I had circumferentially reapproximated the edge of the bladder flap to the to the ureter creating a nice anastomosis a tension-free. And then we put a wire up into the ureter and then over the wire we placed a stent after the stent was then placed then I closed the Boari flap edge using a 3 oh V-Loc stitch closing the top of the Boari flap all the way up to where the anastomosis of the bladder and the flap was then sealed. We then filled the bladder up with water there was no obvious leakage from the anastomosis and the Boari flap with a psoas hitch. We then left the catheter in place during the bladder and bladder was flushed we have left the BI drain exiting the next to the anastomosis put in the bladder and the ureter patient anesthetic was reversed we removed all the trochars we inspected the abdomen he was taken back to PACU in stable condition. Blood loss was only by 50 cc and we did not account for the urine since we had an open urinary system. Surgeon: nahid Type of Anesthesia: General Drains: stent right and rivero Admit VTE Documentation VTE Present on Admission: No VTE Mechan Device Prophylaxis: SCD's VTE Pharm Prophylaxis ordered?: No
[2021-11-18] MEDS: Ketorolac 15 MG/ML Vial IV (13:54)
[2021-11-18] MEDS: Lactated Ringers 1,000 ML 125 ML IV ×2 (14:10→22:18)
[2021-11-18] MEDS: HYDROcodone Bitartrate/Apap 5/325 Tablet PO (18:55)
[2021-11-18] MEDS: Ciprofloxacin 500 MG Tablet PO (21:18)
[2021-11-19] MEDS: HYDROcodone Bitartrate/Apap 5/325 Tablet PO ×2 (01:19→18:50)
[2021-11-19 01:34] VITALS: BP 120/67; PULSE 67; RESP 16; TEMP 36.7; O2SAT 95
[2021-11-19 05:49] VITALS: BP 131/72; PULSE 67; RESP 15; TEMP 36.8; O2SAT 97
[2021-11-19 06:00] VITALS: RESP 15
[2021-11-19] MEDS: Ketorolac 15 MG/ML Vial IV (06:06)
--- NOTE | 2021-11-19 08:42 | PCM.PN.GU ---
Subjective Subjective DOING WELL S/P PSOAS HITCH AND BOARI FLAP FOR DISTAL URETERECTOMY HEP LOCK REG DIET WALK DC/ HOME TOMORROW Objective Data Objective Data Vital Signs: Vital Signs Temp Pulse Resp BP Pulse Ox 98.2 F 67 15 131/72 H 97 11/19/21 05:49 11/19/21 05:49 11/19/21 06:00 11/19/21 05:49 11/19/21 05:49 Oxygen Flow Rate (L/min) 4 Oxygen Delivery Method Room Air Weight: 102 kg Body Mass Index (BMI) 30.4 Intake & Output: Intake and Output for Last 24 Hours 11/17/21 11/18/21 11/19/21 23:59 23:59 23:59 Intake Total 2801 / 2801 200 / 200 Output Total 1210 / 1210 840 / 840 Balance 1591 / 1591 -640 / -640 Lab / Micro Data Result Diagrams: 11/10/21 07:06 11/10/21 07:06
[2021-11-19 09:08] VITALS: BP 127/88; PULSE 70; RESP 16; TEMP 36.9; O2SAT 95
[2021-11-19] MEDS: Cyanocobalamin 500 MCG Tablet 1000 MCG PO (09:17)
[2021-11-19] MEDS: amLODIPine 2.5 MG Tablet PO (09:17)
[2021-11-19] MEDS: Ciprofloxacin 500 MG Tablet PO ×2 (09:17→21:39)
--- NOTE | 2021-11-19 11:30 | CASEMGMT ---
MALIK BENAVIDES assessment: Face to Face with patient for initial transition planning/care coordination assessment. MALIK BENAVIDES introduced self and role at [facility], pt voices understanding and consents to assessment. Pt is lying in bed in no distress on RA. Pt is A/Ox4 and answers all questions appropriately. Care providers, pharmacy, and demographics verified. Presentation: Pt brought in to OR for resection of tumor, removal of R ureter Admitting dx: lap robotic assisted R distal uteroscopy w/ R ureteral stent, right ureteroneocystocopy PCP: Rajesh Specialists: Archana uro; Kelly, cardio [facility]erred [facility]acy: [facility] Insurance: [facility] A/B, [place], [place] Prescription Benefit: [place] Living Will/HPOA: Pt has LW/HPOA and is aware that they are on file at [facility]. Pt's , Alexus Aceves, is HPOA. LNOK: Alexus Aceves, /HPOA; Oumou Aceves, daughter Living Arrangements: Pt lives with in 2 story home and states no concerns at home. Pt is independent with ADL's. Transportation: Pt states drives self and states no transportation concerns. DME/HHC: Pt has no current DME and states no need for any further DME. Pt states no hx of HHC or SNF. Pt states no concerns with going home at time of discharge. Pt is retired. Pt states does not smoke cigarettes but occasionally drinks ETOH. Pt states no further concerns/needs. CM to follow for any further discharge planning/needs. Advised pt to ask for CM if any further questions/concerns/needs arise, voices understanding. Pt Goal: Home Plan[place] MALIK BENAVIDES
[2021-11-19 14:59] VITALS: BP 125/72; PULSE 84; RESP 16; TEMP 37.2; O2SAT 95
[2021-11-19 20:36] VITALS: BP 140/77; PULSE 76; RESP 16; TEMP 36.9; O2SAT 95
[2021-11-20 03:00] VITALS: BP 142/78; PULSE 68; RESP 16; TEMP 36.8; O2SAT 95
[2021-11-20] MEDS: HYDROcodone Bitartrate/Apap 5/325 Tablet PO (03:15)
[2021-11-20 09:55] VITALS: BP 143/80; PULSE 76; RESP 16; TEMP 36.8; O2SAT 94
[2021-11-20] MEDS: Ciprofloxacin 500 MG Tablet PO (09:56)
[2021-11-20] MEDS: amLODIPine 2.5 MG Tablet PO (09:56)
--- NOTE | 2021-11-20 11:52 | PCM.PN.GU ---
Subjective Subjective doing well can go home today with rivero and BI drain. Objective Data Objective Data Vital Signs: Vital Signs Temp Pulse Resp BP Pulse Ox 98.2 F 76 16 143/80 H 94 11/20/21 09:55 11/20/21 09:55 11/20/21 09:55 11/20/21 09:55 11/20/21 09:55 Oxygen Flow Rate (L/min) 4 Oxygen Delivery Method Room Air Weight: 102 kg Body Mass Index (BMI) 30.4 Intake & Output: Intake and Output for Last 24 Hours 11/18/21 11/19/21 11/21/21 23:59 23:59 00:59 Intake Total 2801 / 2801 1200 / 1200 Output Total 1210 / 1210 2325 / 2325 470 / 470 Balance 1591 / 1591 -1125 / -1125 -470 / -470 Lab / Micro Data Result Diagrams: 11/10/21 07:06 11/10/21 07:06
--- NOTE | 2021-11-20 11:55 | PCM.DC.SUM ---
Providers Date of Admission: 11/18/21 Primary Care Physician: Dr. Oumou Mena MD Reason For Visit: LAP ROBOTIC DISTAL URETERECTOMY,URETEROSCOPY ST RT Medications at Discharge Home Medications albuterol sulfate 1 puff INHALATION Q4H PRN PRN 06/10/17 modafinil 200 mg tablet 200 mg PO DAILY 01/13/20 mecobalamin (vitamin B12) 1,000 mcg disintegrating tablet,sublingual 1,000 mcg SUBLINGUAL QODAY 07/06/20 budesonide-formoterol HFA 160 mcg-4.5 mcg/actuation aerosol inhaler 1 puff INHALATION DAILY g 08/01/21 amlodipine 2.5 mg PO DAILY 11/09/21 ciprofloxacin HCl [Cipro] 500 mg PO BID #14 tab 11/18/21 oxycodone-acetaminophen 1 tab PO Q6H PRN 7 Days #14 tab 11/18/21 docusate sodium [Colace] 100 mg PO BID #20 cap 11/20/21 Hospital Course Summary of Care Provided Hospital Course: 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 Weight / BMI Weight Weight: 102 kg Body Mass Index (BMI) 30.4 ABG / Lab / Microbiology Data Result Diagrams: 11/10/21 07:06 11/10/21 07:06 D/C Instructions Discharge Diet: No restrictions Call your doctor if you observe: Fever of 101 or Higher Please Follow Up With: Jae Magaña MD When: Call [phone] for an appointment Meaningful Use Info Meaningful Use Diagnoses (Choose all that apply): None applicable Discharge Plan Admission Admit Date/Time: 11/18/21 05:59 Primary Reason for Your Visit: removal of ureteral tumor right side Attending Provider: Jae Magaña Primary Care Provider: Oumou Mena Discharge Orders/Prescriptions Prescriptions: New ciprofloxacin HCl [Cipro] 500 mg tablet 500 mg PO BID Qty: 14 RF: 0 oxycodone-acetaminophen 5-325 mg tablet 1 tab PO Q6H PRN (Reason: pain) 7 Days Qty: 14 RF: 0 docusate sodium [Colace] 100 mg capsule 100 mg PO BID Qty: 20 RF: 0 Continued mecobalamin (vitamin B12) 1,000 mcg tablet,disintegrating 1,000 mcg SUBLINGUAL QODAY RF: 0 budesonide-formoterol [Symbicort] 160-4.5 mcg/actuation HFA aerosol inhaler 1 puff INHALATION DAILY RF: 0 albuterol sulfate 1 INHALER inhaler 1 puff inhalation Q4H PRN PRN (Reason: Shortness Of Breath) RF: 0 modafinil 200 mg tablet 200 mg PO DAILY RF: 0 amlodipine 2.5 mg tablet 2.5 mg PO DAILY RF: 0 Referrals / Follow Up: Jae Magaña MD [STAFF PHYSICIAN] - Oumou Mena MD [Primary Care Provider] - Disposition Discharge Orders: Discharge Patient (Routine); Ordered 11/20/21 Ordered By: Dr. Jae Magaña
[2021-11-20 14:47] VITALS: BP 141/78; PULSE 82; RESP 18; TEMP 36.4; O2SAT 95
== END 2021-11-20 14:51 | disposition home or self-care (01) | DRG 654 ==
LOC: ACINP 06:01 → MS3 12:31
PROVIDERS: Anesthesiology; Admitting Provider Urology; PCP Internal Medicine; Referring Provider Urology; Visit Provider Urology
PROC: 0TSB4ZZ Reposition Bladder, Percutaneous Endoscopic Approach (ICD-10-PCS; principal; 2021-11-18 07:10)
PROC: 0TSB4ZZ Reposition Bladder, Percutaneous Endoscopic Approach (ICD-10-PCS; CPT 50575; 2021-11-18 07:10)
DX: C66.1 Malignant neoplasm of right ureter (principal); N13.2 Hydronephrosis with renal and ureteral calculous obstruction; C67.8 Malignant neoplasm of overlapping sites of bladder; J45.20 Mild intermittent asthma, uncomplicated; I10 Essential (primary) hypertension; M19.90 Unspecified osteoarthritis, unspecified site; G47.30 Sleep apnea, unspecified; E66.9 Obesity, unspecified; N32.9 Bladder disorder, unspecified; G47.419 Narcolepsy without cataplexy; Z68.30 Body mass index [BMI] 30.0-30.9, adult; Z90.79 Acquired absence of other genital organ(s); Z90.49 Acquired absence of other specified parts of digestive tract; Z79.899 Other long term (current) drug therapy
CPT/HCPCS: 36415; 76000; 80048; 85027; 88307; 88341; 88342; J7120; C1769; C2617; J2405

== ENCOUNTER 2021-12-15 07:23 | Outpatient (CLI) | payer MEDICARE, OTHER, SELFPAY ==
--- NOTE | 2021-12-15 07:27 | CT_ITS ---
STUDY: CT CHEST, ABDOMEN T PELVIS WITH CONTRAST REASON FOR EXAM: Male, 81 years old. STAGING RIGHT URETER INVASIVE CANCER. Prior prostatectomy. RADIATION DOSAGE (If Supplied By Facility): CTDIvol = ( 22.82 ) mGy, DLP = ( 3453.29 ) mGycm TECHNIQUE: Transaxial imaging was performed following intravenous administration of IV 100mL Isovue-300. Individualized dose optimization techniques were used for this CT. COMPARISON: Comparison is made with prior CT scan the abdomen dated 06/18/2021. FINDINGS: CHEST Small bilateral benign-appearing axillary lymph nodes. Minimal increased linear markings at the lung bases suggestive of atelectasis and/or scarring. There is no demonstrated pleural abnormality. Normal heart and pericardium. There are multiple small lymph nodes within the mediastinum, which are normal in size and morphology most compatible with reactive lymph hyperplasia. Normal hilar regions. Normal unenhanced pulmonary arteries. Normal aorta arch and descending thoracic aorta. There are multi-level degenerative changes of the thoracic spine. ABDOMEN Stable increased markings at the lung bases suggestive of scarring. The visualized portions of the heart are within normal limits. Stable 1 cm hypodensity seen within the inferior lateral aspect of the right lobe of the liver. Stable 3.5 cm x 3.7 cm cyst arising from the lower pole of the right kidney. Stable 1 cm hypodensity in the posterior aspect of the right lobe of the liver abutting the right hemidiaphragm as seen on axial image #15. The patient is status post cholecystectomy. Normal spleen. Normal pancreas. Normal bilateral adrenal glands. A right-sided double-J stent catheter is seen. There is evidence of a right perinephric stranding. Stable mild degree of right hydronephrosis and hydroureter. Stable 1 cm cyst in the lateral aspect of the right kidney. Normal left kidney. There is a small hiatal hernia. Normal small intestine. Normal colon. There are surgical clips in the region of the appendix consistent with a prior appendectomy. Normal abdominal aorta. Normal inferior vena cava. Normal retroperitoneum. Normal abdominal wall. PELVIS There is a deformity of the superior aspect of the bladder on the right side. A small amount of free fluid is seen in the pelvis. Normal visualized small intestine. Normal visualized colon. There is no pelvic fluid. There is no pelvic lymphadenopathy or mass lesion. Normal visualized pelvic arteries. Normal abdominal wall. There are diffuse degenerative changes of the visualized lumbar spine. CT/CT Chest, Abd, Pel w/Contrast IMPRESSION: Status post right double-J stent placement with residual right hydronephrosis and hydroureter with right perinephric stranding down to the level of the urinary bladder. Stable right renal cysts. Small amount of fluid is seen in the pelvis. Electronically Signed: Lionel Emmanuel MD at 10:48 EDT ,
== END 2021-12-15 23:59 | disposition home or self-care (01) ==
LOC: CT 07:26
PROVIDERS: PCP Internal Medicine; Referring Provider Internal Medicine Hematology & Oncology; Visit Provider Internal Medicine Hematology & Oncology
DX: C66.1 Malignant neoplasm of right ureter (principal); Z90.79 Acquired absence of other genital organ(s)
CPT/HCPCS: 71260; 74177; 96360; J7040; Q9967; A4216

== ENCOUNTER 2021-12-19 07:24 | Outpatient (CLI) | payer MEDICARE, OTHER, SELFPAY ==
--- NOTE | 2021-12-19 07:26 | NM_ITS ---
CLINICAL: Male, 81 years old. STAGING RIGHT URETER INVASIVE CANCER WHOLE BODY NUCLEAR BONE SCAN TECHNIQUE: Following the IV administration of 26.3 mCi of Tc MDP, whole body bone imaging was performed with a gamma camera following a three hour delay. FINDINGS: Mild degree of radiopharmaceutical uptake at the level of both shoulder joints suggestive of degenerative changes. Mild increased uptake is also seen at the level of the knee joint slightly more prominent on the right side. No evidence of metastatic disease. NM/Bone Scan Whole Body IMPRESSION: Degenerative changes. No evidence of bony metastasis. Electronically Signed: Lionel Emmanuel MD at 8:50 EDT ,
== END 2021-12-19 23:59 | disposition home or self-care (01) ==
LOC: NM 07:25
PROVIDERS: PCP Internal Medicine; Referring Provider Internal Medicine Hematology & Oncology; Visit Provider Internal Medicine Hematology & Oncology
DX: C66.1 Malignant neoplasm of right ureter (principal)
CPT/HCPCS: 78306; A9503

== ENCOUNTER 2021-12-23 09:25 | Day surgery (SDC) | payer MEDICARE, OTHER, SELFPAY ==
[2021-12-23] VITALS (7 sets, daily range): BP systolic 122–147; BP diastolic 71–87; PULSE 68–72; RESP 16–18; TEMP 37–37.3; O2SAT 96–98; BMI 31.0
[2021-12-23] MEDS: Lactated Ringers 1,000 ML 30 ML IV (10:11)
--- NOTE | 2021-12-23 10:17 | PCM.HP.BLA ---
History and Physical Date of Admission: 12/23/21 Vital Signs 12/15/21 09:52 Height 6 ft Weight: 224 lb 13.944 oz BMI 30.4 BP 148/75 H Blood Pressure Location Rt brachial Position Sitting Respiration 18 Intake Visit Reasons: NEEDS A PORT Chief Complaint: Invasive cancer of the ureter Allergies Penicillins Allergy (Verified 12/15/21 09:49) Unknown Sulfa (Sulfonamide Antibiotics) Allergy (Verified 12/15/21 09:49) Unknown Medications albuterol sulfate 1 puff INHALATION Q4H PRN PRN 06/10/17 [History Confirmed 12/15/21] modafinil 200 mg tablet 200 mg PO DAILY 01/13/20 [History Confirmed 12/15/21] mecobalamin (vitamin B12) 1,000 mcg disintegrating tablet,sublingual 1,000 mcg SUBLINGUAL QODAY 07/06/20 [History Confirmed 12/15/21] budesonide-formoterol HFA 160 mcg-4.5 mcg/actuation aerosol inhaler 1 puff INHALATION DAILY g 08/01/21 [History Confirmed 12/15/21] amlodipine 2.5 mg PO DAILY 11/09/21 [History Confirmed 12/15/21] ciprofloxacin HCl [Cipro] 500 mg PO BID #14 tab 11/18/21 [Rx Confirmed 12/15/21] oxycodone-acetaminophen 1 tab PO Q6H PRN 7 Days #14 tab 11/18/21 [Rx Confirmed 12/15/21] docusate sodium [Colace] 100 mg PO BID #20 cap 11/20/21 [Rx Confirmed 12/15/21] PFSH Medical History Alcohol use Asthma Asthma 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 Cardiology follow-up encounter Chronic cholecystitis CPAP (continuous positive airway pressure) dependence CRF (chronic renal failure) Essential (primary) hypertension Frequent unifocal premature ventricular contractions (02/2020) History of echocardiogram History of edema History of stress test Mallet finger of left finger(s) Narcolepsy Non-smoker Obesity (BMI 30.0-34.9) Osteoarthritis Pancreatitis Skin cancer Sleep apnea Wears glasses Surgical History H/O hernia repair H/O knee surgery H/O prostatectomy H/O transurethral resection of prostate History of appendectomy History of cholecystectomy (02/29/20) History of cystoscopy History of ERCP History of malignant neoplasm of ureter (~07/06/21) History of radiofrequency ablation procedure for cardiac arrhythmia (03/17/08) Hx of cystoscopy Hx of total knee arthroplasty Hx of total knee arthroplasty Family History Mother CAD (coronary artery disease) Father Cancer Other CVA (cerebral vascular accident) Hypertension Social History Smoking Status: Never smoker alcohol intake: never substance use type: does not use what type of physical activity do you participate in: none HPI HPI HPI: KASSI MARCIAL, is a 81 M who presents to the office today for port consultation. The patient has ureteral cancer and requires port for chemotherapy. ROS General General: No weight change, appetite, fatigue, colon cancer, breast cancer or weakness HEENT HEENT: No difficulty swallowing, eye injury, eye surgery, swollen glands or hoarseness Endo Endocrine: No thyroid disease, diabetes mellitus, thyroid cancer, Hair loss, heat intolerance or cold intolerance Skin Skin: No rash or changing moles Breast Breast: No left breast lump, right breast lump, nipple discharge, breast pain, abnormal mammogram, abnormal US or breast enlargement Musc Musculoskeletal: No back problems, arthritis, rheumatoid arthritis, gout or joint pain Cardio Cardiovascular: Yes high blood pressure; No murmur, pacemaker, heart disease, atrial fibrillation, heart attack, heart stent, palpitations, shortness of breat with exertion or chest pain Psych Psychiatric: No depression, anxiety or hearing voices Resp Respiratory: No shortness of breath, Yes sleep apnea, No cough, No COPD, Yes asthma, Yes emphysema and No wheezing Gastro Gastrointestinal: No abdominal pain, No nausea or vomiting, No diarrhea, No constipation, No blood in stool, No acid reflux, No hemorrhoids, No ulcers, No gallbladder problem and No black,tarry stools [place] Hematologic: No blood thinners, No blood disorders, No bleeding, No anemia and No blood clots Neuro Neurologic: No system reviewed and no additional complaints, except as documented, No as per HPI, No abnormal gait, No abnormal hearing, No abnormal movements, No abnormal speech, No behavioral changes, No burning sensations, No confusion, No convulsions, No disequilibrium, No dizziness, No localized weakness, No frequent falls, No headache(s), No lack of coordination, No loss of vision, No memory loss, No numbness, No other visual disturbances, No radicular pain, No restless legs, No sensory deficit, No syncope, No tingling, No tremor(s), No weakness and No other Exam Const General: cooperative Orientation: alert and oriented x3 [facility] Head: normal to inspection Neck Neck: normal visual inspection and full ROM Chest Chest palpation & inspection: normal inspection of the chest Resp Effort & Inspection: normal respiratory effort Auscultation: clear to auscultation bilaterally Cardio Rate: regular rate Rhythm: regular rhythm GI Inspection: non-distended Palpation: soft and nontender Skin General: no rashes or lesions noted Neuro General: patient alert and patient oriented x3 Extrem General: full ROM Psych Appearance: grossly normal Mental Status: mental status grossly normal Assessment and Plan Assessment and Plan (1) Encounter for insertion of venous access port: Status: Acute (2) Cancer of ureter: Status: Acute Qualifiers: Laterality: right Qualified Code(s): 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 Antoine Cline MD: I discussed right chest port placement with the patient in detail. I discussed the risks including not limited to bleeding, infection, pneumothorax, DVT, or line infection. Patient understands the risks and is willing to proceed. I will schedule him for port placement next week. Antoine Cline MD Pager: [facility] [address] [place] [address], [address] [place] [address] Office: I have re-examined the patient. There are no clinical changes since date of exam.
[2021-12-23] MEDS: Clindamycin 900 MG/50 ML BAG 75 MG IV (10:42)
--- NOTE | 2021-12-23 11:28 | RAD_ITS ---
STUDY: X-RAY CHEST REASON FOR EXAM: Male, 81 years old. Line placement -- in pacu TECHNIQUE: Single AP portable view of the chest. COMPARISON: Comparison is made with prior study 06/10/2017. FINDINGS: A right-sided bk catheter has been placed. The tip is at the junction of the superior vena cava and right atrium. Mild degree of increased markings at the lung bases suggestive of bibasilar atelectasis. There is no demonstrated pleural abnormality. Normal size heart. Normal mediastinum and atul. Normal visualized pulmonary arteries. There is atherosclerotic tortuosity of the aortic arch and descending thoracic aorta. There are diffuse degenerative changes of the visualized thoracic spine. Normal visualized ribs, clavicles, and shoulders. There is no demonstrated abnormality of the visualized soft tissue structures of the upper abdomen. RAD/CXR for Line Placement IMPRESSION: Increased markings at the lung base suggestive of atelectasis. Electronically Signed: Lionel Emmanuel MD at 12:08 EDT ,
--- NOTE | 2021-12-23 11:29 | PCM.OPRPT ---
Problems Associated Problem List Diagnoses (1) Encounter for adjustment and management of vascular access device: Report of Operation Date of Procedure: 12/23/21 Pre-Operative Diagnosis: Need for vascular access port Post-Operative Diagnosis: Same Surgery/Procedure Performed:: Ultrasound fluoroscopy-guided right chest port placement utilizing right IJ Description of Procedure: After obtaining informed consent patient was brought back to the operating room MAC anesthesia was induced and the right chest and neck were prepped in normal sterile fashion. Ultrasound was used to evaluate both IJs and the right IJ was selected. Next, using a needle, the right IJ was accessed and a guidewire was passed on into the superior vena cava under fluoroscopy guidance. A small incision was made over the puncture site and the dilator introducer was placed over the guidewire. Next this was capped and the pocket was made for the port. 1% lidocaine with epinephrine was injected in the proposed port site. An incision was made with scalpel. Electrocautery was used to make a pocket under the skin and subcutaneous tissue. Hemostasis was obtained. Next, the catheter was tunneled up to the neck incision site and placed through the introducer. The peel-away introducer was removed and the position of the catheter was confirmed on fluoroscopy. Next, the catheter was trimmed and attached to the port with the locking device. Interrupted 2-0 Vicryl sutures were used to anchor the port to the chest wall and then the port was placed inside the pocket. The pocket was then flushed with saline and the port irrigated with saline. There was good blood return and the port flushed easily. Next, heparin was injected into the port. The skin was closed with subcutaneous interrupted 3-0 Vicryl sutures. A single 3-0 Vicryl sutures placed under the skin at the neck incision site. Steri-Strips were placed as well as op sites. Patient tolerated procedure well, was taken to PACU in stable condition. Chest x-ray will be obtained. Grafts/Implants Used: 8 [employer] Admit VTE Documentation VTE Mechan Device Prophylaxis: SCD's
--- NOTE | 2021-12-23 11:33 | EX.PCM.DISCH ---
Discharge Instructions Procedure Port-A-Cath Diet Discharge Diet: Light diet - advance as tolerated (Pain medication may cause nausea. You should typically eat light foods as you take your pain medication.) Activity Discharge Activity: Return to Normal Activity and May Shower (with your bandage in place in 1-2 days after surgery. DO NOT SHOWER WHEN YOUR PORT IS ACCESSED.) Additional Activity Instructions:: ok to use port Sunday Dressing / Incision Call your doctor if your incision/area has: Continuous Slow Oozing, Sudden Increased Bleeding, Increased Pain/ Swelling, Increased Redness and Foul Smelling Discharge Call your doctor if you observe: Fever of 101 or Higher Remove Dressing in: 2 days Cleanse incision/area with: Soap & Water Follow Up Care Please Follow Up With: Antoine Cline MD When: as needed [phone] Test Results: Test results from this visit will be discussed in further detail at your follow-up appointment, if applicable. Discharge Plan Admission Attending Provider: Antoine Cline Primary Care Provider: Oumou Mena Discharge Orders/Prescriptions Prescriptions: No Action mecobalamin (vitamin B12) 1,000 mcg tablet,disintegrating 1,000 mcg SUBLINGUAL QODAY RF: 0 budesonide-formoterol [Symbicort] 160-4.5 mcg/actuation HFA aerosol inhaler 1 puff INHALATION DAILY RF: 0 ondansetron 8 mg tablet,disintegrating 8 mg PO Q8H PRN (Reason: nausea and vomiting) Qty: 30 RF: 2 lidocaine-prilocaine 2.5-2.5 % cream 1 applic topical ONCE PRN (Reason: port access) 30 Days Qty: 30 RF: 2 albuterol sulfate 1 INHALER inhaler 1 puff inhalation Q4H PRN PRN (Reason: Shortness Of Breath) RF: 0 modafinil 200 mg tablet 200 mg PO DAILY RF: 0 amlodipine 2.5 mg tablet 2.5 mg PO DAILY RF: 0 Referrals / Follow Up: Oumou Mena MD [Primary Care Provider] - Disposition Disposition (needs filled in before D/C Order can be placed): Home, Self Care
== END 2021-12-23 23:59 | disposition home or self-care (01) ==
LOC: SDC 09:26 → AC 09:27
PROVIDERS: PCP Internal Medicine; Referring Provider Surgery; Visit Provider Surgery
PROC: (CPT 36561; principal; 2021-12-23 10:45)
DX: Z45.89 Encounter for adjustment and management of other implanted devices (principal); C66.1 Malignant neoplasm of right ureter; I12.9 Hypertensive chronic kidney disease with stage 1 through stage 4 chronic kidney disease, or unspecified chronic kidney disease; N18.9 Chronic kidney disease, unspecified; Z68.30 Body mass index [BMI] 30.0-30.9, adult; E66.9 Obesity, unspecified; Z79.899 Other long term (current) drug therapy; J45.909 Unspecified asthma, uncomplicated; G47.419 Narcolepsy without cataplexy; M19.90 Unspecified osteoarthritis, unspecified site; G47.30 Sleep apnea, unspecified; Z85.828 Personal history of other malignant neoplasm of skin
CPT/HCPCS: 36561; 00532; 71045; 77001; J7120; C1788

== ENCOUNTER → 2022-05-01 | Outpatient (CLI) | payer MEDICARE, OTHER, SELFPAY ==
--- NOTE | 2022-05-01 07:46 | CT_ITS ---
STUDY: CT CHEST, ABDOMEN T PELVIS WITH CONTRAST REASON FOR EXAM: Male, 81 years old. DISTAL RIGHT URETER CANCER POST CHEMO RADIATION DOSAGE (If Supplied By Facility): CTDIvol = ( 19.10 ) mGy, DLP = ( 2130.27 ) mGycm TECHNIQUE: Transaxial imaging was performed following intravenous administration of IV 100mL Isovue-300. Multiplanar coronal and sagittal images were reformatted. Individualized dose optimization techniques were used for this CT. COMPARISON: Comparison is made with prior examination dated 12/15/2021. FINDINGS: CHEST A right-sided portacatheter is seen with the tip in the superior vena cava. Stable small benign-appearing bilateral axillary lymph nodes. Stable mild linear scarring at the lung bases slightly more prominent on the right side. There is no demonstrated pleural abnormality. There are mild reactive calcifications of the coronary arteries. There are multiple small lymph nodes within the mediastinum, which are normal in size and morphology most compatible with reactive lymph hyperplasia. Normal hilar regions. Normal unenhanced pulmonary arteries. Normal aorta arch and descending thoracic aorta. There are multi-level degenerative changes of the thoracic spine. There is no demonstrated abnormality of the visualized upper abdomen. ABDOMEN Stable 5.7 mm hypodensity in the posterior aspect of the right lobe of liver superiorly stable 9 mm hypodensity in the posterior lateral aspect of the right lobe of the liver as seen on axial image #27. The patient is status post cholecystectomy. Normal spleen. Normal pancreas. Normal bilateral adrenal glands. Stable 1 cm cyst in the lateral superior pole of the right kidney. The previously seen right-sided double-J stent catheter has been removed. Stable 3.8 cm cyst in the lower pole of the right kidney. Normal left kidney. Normal visualized stomach. Normal small intestine. There are scattered colonic diverticula consistent with diverticulosis. There are surgical clips in the region of the appendix consistent with a prior appendectomy. There is scan atherosclerotic calcification of the abdominal aorta, without a demonstrated aneurysm. Normal inferior vena cava. Normal retroperitoneum. Normal abdominal wall. There are diffuse degenerative changes of the visualized lumbar spine. PELVIS Stable mild deformity along the superior aspect of the urinary bladder There is no pelvic fluid. There is no pelvic lymphadenopathy or mass lesion. There is scan atherosclerotic calcification of the pelvic arteries. Normal abdominal wall. There are diffuse degenerative changes of the visualized lumbar spine. CT/CT Chest, Abd, Pel w/Contrast IMPRESSION: Essentially stable examination. Status post removal of the right double-J stent catheter. Electronically Signed: Lionel Emmanuel MD at 9:17 EDT ,
[2022-05-01] MEDS: 0.9% Saline Lock 10 ML Syringe IV (08:05)
== END | disposition home or self-care (01) ==
LOC: CT 07:45
PROVIDERS: PCP Internal Medicine; Referring Provider Internal Medicine Hematology & Oncology; Visit Provider Internal Medicine Hematology & Oncology
DX: C66.1 Malignant neoplasm of right ureter (principal)
CPT/HCPCS: 71260; 74177; Q9967; A4216

== ENCOUNTER → 2022-05-05 | Outpatient (CLI) | payer MEDICARE, OTHER, SELFPAY ==
--- NOTE | 2022-05-05 09:00 | NM_ITS ---
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 WHOLE BODY 99m Tc MDP RADIONUCLIDE BONE SCINTIGRAPHY COMPARISON: Previous whole body bone scintigraphy study dated 12/19/2021 FINDINGS: Following the intravenous administration of 26.1 mCi of 99m Tc MDP, whole body bone images reveal: 1. Increased radiopharmaceutical concentration is redefined in the sternoclavicular and acromioclavicular compartments of both shoulders, the glenohumeral compartment of the left shoulder, the right wrist, the lower cervical spine posteriorly on the left, the patellofemoral compartments of both knees. 2. The remaining skeletal structures are scintigraphically unremarkable with normal-appearing renal images and urinary bladder activity identified. Bilateral presumably asymptomatic knee prostheses are identified. Facilitated uptake noted in the bilateral maxilla likely represents periostitis. NM/Bone Scan Whole Body IMPRESSION: 1. The increase in tracer uptake identified in the bilateral shoulders, the right wrist, lower cervical spine and patellofemoral compartments of both knees-in the absence of patellar hardware placement is most consistent with degenerative arthrosis. 2. Overall compared to the previous whole body bone scintigraphy study dated 12/19/2021, there is minimal interval change. Electronically Signed: Hung Martinez, at 20:57 EDT ,
[2022-05-05] MEDS: 0.9% Saline Lock 10 ML Syringe IV (09:23)
== END | disposition home or self-care (01) ==
PROVIDERS: PCP Internal Medicine; Referring Provider Internal Medicine Hematology & Oncology; Visit Provider Internal Medicine Hematology & Oncology
DX: Z85.54 Personal history of malignant neoplasm of ureter (principal)
CPT/HCPCS: 78306; A9503; A4216

== ENCOUNTER 2022-06-06 09:28 | Day surgery (SDC) | payer MEDICARE, OTHER, SELFPAY ==
--- NOTE | 2022-06-06 | IMM_PTH ---
PATIENT: KASSI MARCIAL LOC: [facility] [place] U#:[id number] AGE/SX: 81/M ROOM: RE06/06/[address]: Dr. Jae Magaña MD : 1940 BED: DIS: 06/06/2022 SPEC #: [id number] RECD: 06/08/22 12:52 STATUS: JASWANT REQ #: [id number] FRIDA: 06/06/22 00:[address]: Jae Magaña DEPT: IMMUNOHISTOCHEMISTRY RECD BY: Nancy Maza ENTERED: 06/08/22 12:53 SP TYPE: IMMUNO OTHR DR: Dr. Oumou Mena MD Tissues: B - Ureter, NOS Procedures: CK20 (add) CK7 (add) CK8 (add) KI-67 (add) P53 (add) 34BE12 (add) Pankeratin (initial) CD44 (add) PHYSICIAN & INSTITUTION [place] [id number] SPECIMEN INFORMATION: Tissue Source: B ? Right ureteral tumor Clinical Info: Bladder cancer Specimen Number: [id number] CPT code: 89382, 47772 x7 METHODOLOGY: Deparaffinized sections of prefer/formalin-fixed tissue or PAP/DQ stained slides are incubated with monoclonal/polyclonal antibodies/oligonucleotide probes. Localization is made via biotin free immunoperoxidase method. Appropriate controls are performed and reacted as expected. Results on target cell population are indicated in the following table: RESULTS: ANTIBODY / CLONE RESULT Block B AE1-3 (AE1/AE3/PCK26) positive CK7 (OV-TL12/30) positive CK8 (53xyqlV22) positive CK20 (KS20.8) positive 34BE12 (34BE12) positive anti-CD44 (SP37) positive P53 (DO-7) positive, 75%, dim Ki-67 (30-9) positive, 30% These tests were developed and their performance characteristics determined by [facility]. They may not have been cleared or approved by the U.S. Food and Drug Administration. The FDA has determined that such clearance or approval is not necessary. The above immunohistochemical/dualISH markers are ordered and reviewed by the Pathologist. INTERPRETATION: B. Right ureteral tumor, biopsy: Consistent with minute focus of urothelial carcinoma. AM:shantel 06/09/2022
[2022-06-06] MEDS: Lactated Ringers 1,000 ML 15 ML IV (09:45)
[2022-06-06 10:05] VITALS: BP 144/76; PULSE 71; RESP 18; TEMP 37.4; O2SAT 97; BMI 31.6
[2022-06-06] MEDS: Cefazolin 2 GM in 0.9% Normal Saline 100 ML IV (11:27)
--- NOTE | 2022-06-06 11:30 | BLA_PTH ---
PATIENT: KASSI MARCIAL LOC: [facility] – [place] U#:[id number] AGE/SX: 81/M ROOM: RE06/06/[address]: Dr. Jae Magaña MD : 1940 BED: DIS: 06/06/2022 SPEC #: [id number] RECD: 06/06/22 14:13 STATUS: JASWANT ISABEL #: [id number] FRIDA: 06/06/22 11:[address]: Jae Magaña DEPT: SURGICAL PATHOLOGY RECD BY: Ada Crespo ENTERED: 06/07/22 08:00 SP TYPE: BLADDER BX OTHR DR: Dr. Oumou Mena MD Tissues: A - Urinary bladder, NOS B - Ureter, NOS Procedures: Surgery Specimen Level IV Surgery Specimen Level V HEADER OPERATION: Cysto, TURBT, Olympus, right ureteroscopy resection of tumor PRE-OP DIAGNOSIS: Bladder cancer TISSUE SUBMITTED: A ? Bladder tumor, B ? Right ureteral tumor MICROSCOPIC DIAGNOSIS A. Urinary bladder tumor, transurethral resection: Papillary urothelial carcinoma. See cancer synoptic report below. B. 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 See comment. AM:shantel 06/08/2022 COMMENT A. BLADDER CANCER (TUR) SUMMARY Procedure: Transurethral resection of bladder tumor (TURBT) Tumor site: Not specified Histologic type: Papillary urothelial carcinoma Histologic grade: Grade 1-2/3 Tumor configuration: Papillary Muscularis propria presence: Present and free of tumor. Lymphvascular invasion: Not identified Tumor extension: Confined to urothelium. Additional pathologic findings: Chronic inflammation. The above summary is in compliance with [employer] (CAP) Cancer Protocols Checklist and [place] Joint Committee on Cancer (AJCC), Staging Manual, 8th Ed. B. Immunohistochemistry ([id number]) supports the above diagnosis. Reference is made to the patient's previous ureteral tumor biopsy ([id number]) in which papillary urothelial carcinoma was identified. Case has been reviewed in consultation with Dr. Beaver who concurs with the above diagnosis. IDC:PANTERA MICROSCOPIC DESCRIPTION Slides are reviewed. GROSS DESCRIPTION A - Received in fixative is one container labeled with the patient's name and designated bladder tumor. The specimen consists of multiple irregular fragments of light mancini soft tissue that in aggregate measure 2 x 1.5 x 0.3 cm. The specimen is totally submitted in one cassette. B - Received in fixative is one container labeled with the patient's name and designated right ureteral tumor. The specimen consists of one irregular fragment of light mancini soft tissue that measures 0.1 x 0.1 x 0.1 cm. The specimen is totally submitted in one cassette. / SJ:rg 06/07/2022 TC:0 CPT: 07993, 58898
--- NOTE | 2022-06-06 11:31 | DCINST_ITS ---
Discharge Instructions Diet Discharge Diet: No restrictions, Light diet - advance as tolerated and Soft diet Activity Discharge Activity: Return to Normal Activity Follow Up Care Please Follow Up With: Jae Magaña MD When: 2 - 3 weeks Test Results: Test results from this visit will be discussed in further detail at your follow- up appointment, if applicable. Discharge Plan Admission Primary Reason for Your Visit: TURBT Attending Provider: Jae Magaña Primary Care Provider: Oumou Mena Instructions Patient Instructions: Bladder Cancer TUR Discharge Orders/Prescriptions Prescriptions: New oxycodone-acetaminophen [Endocet] 5-325 mg tablet 1 tab PO Q6H PRN (Reason: pain) 7 Days Qty: 20 0RF ciprofloxacin HCl [Cipro] 500 mg tablet 500 mg PO BID Qty: 14 0RF No Action mecobalamin (vitamin B12) 1,000 mcg tablet,disintegrating 1,000 mcg SUBLINGUAL QODAY Rx Instructions: place tablet under tongue and allow to dissolve for at least30 secs before swallowing albuterol sulfate 1 INHALER inhaler 1 puff inhalation Q4H PRN PRN (Reason: Shortness Of Breath) Label Comments: breathing modafinil 200 mg tablet 200 mg PO DAILY Label Comments: narcolepsy amlodipine 2.5 mg tablet 2.5 mg PO DAILY budesonide-formoterol [Symbicort] 80-4.5 mcg/actuation Hfa Aerosol Inhaler 1 inh INHALATION DAILY Referrals / Follow Up: Oumou Mena MD [Primary Care Provider] - Disposition Disposition (needs filled in before D/C Order can be placed): Home, Self Care
--- NOTE | 2022-06-06 11:31 | PCM.HP.STD ---
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 Cardiology follow-up encounter Chronic cholecystitis CINV (chemotherapy-induced nausea and vomiting) CPAP (continuous positive airway pressure) dependence CRF (chronic renal failure) Encounter for chemotherapy management Encounter for education Essential (primary) hypertension Frequent unifocal premature ventricular contractions (02/2020) History of echocardiogram History of edema History of stress test Mallet finger of left finger(s) Myelosuppression Narcolepsy Non-smoker Obesity (BMI 30.0-34.9) Osteoarthritis Pancreatitis Pancytopenia Skin cancer Sleep apnea Wears glasses Home Medications albuterol sulfate 90 mcg/actuation aerosol inhaler 1 puff inhalation Q4H PRN PRN Shortness Of Breath 06/10/17 [History Last Taken 11/18/21 04:30] modafinil 200 mg tablet 200 mg PO DAILY narcolepsy 01/13/20 [History Last Taken 07/06/21 07:00] mecobalamin (vitamin B12) 1,000 mcg disintegrating tablet,sublingual 1,000 mcg sublingual QODAY SUPPLEMENT 07/06/20 [History Last Taken Unknown] amlodipine 2.5 mg tablet 2.5 mg PO DAILY BP 11/09/21 [History Last Taken 12/23/21] budesonide-formoterol HFA 80 mcg-4.5 mcg/actuation aerosol inhaler (Symbicort) 1 inh inhalation DAILY 05/31/22 [History Last Taken Unknown] ciprofloxacin HCl 500 mg tablet (Cipro) 500 mg PO BID #14 tabs 06/06/22 [Rx Last Taken Unknown] oxycodone-acetaminophen 5 mg-325 mg tablet (Endocet) 1 tab PO Q6H PRN pain 7 days #20 tabs 06/06/22 [Rx Last Taken Unknown] Allergy/AdvReac Type Severity Reaction Status Date / Time Penicillins Allergy Unknown Verified 06/06/22 09:44 Sulfa (Sulfonamide Allergy Unknown Verified 06/06/22 09:44 Antibiotics) Family History Mother CAD (coronary artery disease) Father Cancer Other CVA (cerebral vascular accident) Hypertension Surgical History H/O hernia repair H/O knee surgery H/O prostatectomy H/O transurethral resection of prostate History of appendectomy History of cholecystectomy (02/29/20) History of cystoscopy History of ERCP History of malignant neoplasm of ureter (~07/06/21) History of radiofrequency ablation procedure for cardiac arrhythmia (03/17/08) History of removal of Port-a-Cath Hx of cystoscopy Hx of total knee arthroplasty Hx of total knee arthroplasty Social History Smoking Status: Never smoker alcohol intake: never substance use type: does not use what type of physical activity do you participate in: none Vital Signs Vital Signs Vital Signs: 06/06/22 10:05 06/06/22 10:05 Temperature 99.4 F H Temperature Source Temporal Pulse Rate 71 Respiratory Rate 18 Respiratory Pattern Normal Blood Pressure 144/76 H Blood Pressure Mean 98 Blood Pressure Source Monitor Blood Pressure Position Semi-Fowlers Blood Pressure Location Left Arm Pulse Ox 97 Oxygen Delivery Method Room Air Weight Weight: 106 kg Body Mass Index (BMI) 31.6
--- NOTE | 2022-06-06 12:29 | PCM.OPRPT ---
Report of Operation Date of Procedure: 06/06/22 Pre-Operative Diagnosis: Multiple bladder tumors, right ureteral tumor, history of ureteral cancer and bladder cancer Post-Operative Diagnosis: The same Surgery/Procedure Performed:: Transurethral resection of multiple bladder tumors multiple sites of the bladder total size large, right ureteroscopy resection of ureteral tumor and cauterization of base, right retrograde pyelogram Description of Surgical Findings:: Indication 81-year-old male is found to have a high-grade invasive ureteral tumor he underwent a very robotic assisted distal ureterectomy and removal of this tumor was found to have 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 Penis and testicles were prepped and draped in usual sterile fashion. I went in the bladder with a 24 [place] noncontinuous flow Olympus resectoscope once inside the bladder I spent some time mapping out all the tumors and then I resected all the tumors out multiple tumors all the specimen was sent off appear to be noninvasive papillary tumors but it was a large resection. After all these 2 sites were resected then I cauterized all the sites extensively I then went up to the right ureteral orifice first but he is a Glidewire and a Pollick catheter performed a retrograde pyelogram could see contrast go up the ureter nice smooth anatomy no tumors or defects seen. Up in the kidney there was no tumors or defects seen in the kidney I went up with a flexible ureteroscope inspected the upper pole midpole lower pole there is no tumors along the entire course of the ureter no tumors then at the site of the insertion site there was some scar tissue looking area but no active tumors there was one little papillary tumor right below this. Because of the angle I could not use the flexible ureteroscope so I put this out and I went back in with a semirigid ureteroscope was able to get into the ureter I used a basket to resect the tumor and then a cauterization and cauterized the base of resection site and then went back into the bladder and looked around again using 30 and 70 degree lens also use bluelight cystoscopy there was 1 other tumor that was also close to the dome near the insertion site that was also cauterized. After taken care of all this at this point appears to have noninvasive papillary tumor recurrences probably would recommend close surveillance I do not really think a removal of his entire right kidney and ureter would be necessary I will talk to the family regarding situation certainly its possible of more tumors come back with more tumors in the ureter come back we may have to do a complete nephro ureterectomy in the right side. This would be a very complicated procedure because of his prior procedure and very high risk procedure so recommend conservative approach if possible. Surgeon: Jae Magaña Type of Anesthesia: General Drains: none Admit VTE Documentation VTE Present on Admission: No VTE Mechan Device Prophylaxis: SCD's VTE Pharm Prophylaxis ordered?: No
[2022-06-06 12:45] VITALS: BP 144/76; BP 158/87; PULSE 74; RESP 18; TEMP 36.7; O2SAT 98
[2022-06-06 12:53] VITALS: BP 135/96; BP 144/76; PULSE 72; RESP 18; O2SAT 98
[2022-06-06 13:00] VITALS: BP 138/82; BP 144/76; PULSE 67; RESP 18; O2SAT 98
[2022-06-06 13:15] VITALS: BP 132/82; BP 144/76; PULSE 65; RESP 18; TEMP 36.9; O2SAT 98
[2022-06-06] MEDS: HYDROcodone Bitartrate/Apap 5/325 Tablet PO (14:24)
[2022-06-06] MEDS: 0.9% Saline Lock 10 ML Syringe IV (14:25)
[2022-06-06 14:26] VITALS: BP 144/76; BP 146/84; PULSE 62; RESP 20; TEMP 36.2; O2SAT 100
== END 2022-06-06 14:28 | disposition home or self-care (01) ==
LOC: SDC 09:29 → AC 09:30
PROVIDERS: PCP Internal Medicine; Referring Provider Urology; Visit Provider Urology
PROC: 0TBB8ZZ Excision of Bladder, Via Natural or Artificial Opening Endoscopic (ICD-10-PCS; CPT 52240; principal; 2022-06-06 11:20)
DX: C67.8 Malignant neoplasm of overlapping sites of bladder (principal); C66.1 Malignant neoplasm of right ureter; G47.30 Sleep apnea, unspecified; E66.9 Obesity, unspecified; I12.9 Hypertensive chronic kidney disease with stage 1 through stage 4 chronic kidney disease, or unspecified chronic kidney disease; N18.9 Chronic kidney disease, unspecified
CPT/HCPCS: 52240; 52005; 52354; 00912; 76000; 88305; 88307; 88341; 88342; J7120; A4216; C1769

== ENCOUNTER → 2022-09-12 | Outpatient (CLI) | payer MEDICARE, OTHER, SELFPAY ==
--- NOTE | 2022-09-12 07:48 | CT_ITS ---
STUDY: CT CHEST, ABDOMEN T PELVIS WITH CONTRAST REASON FOR EXAM: Male, 81 years old. F/U RIGHT URETER CANCER. Prior cholecystectomy and appendectomy. History of prostate cancer with prostatectomy. RADIATION DOSAGE (If Supplied By Facility): CTDIvol = ( 23.56 ) mGy, DLP = ( 4711.09 ) mGycm TECHNIQUE: Transaxial imaging was performed following intravenous administration of IV 75mL Isovue-300. Multiplanar coronal and sagittal images were reformatted. Individualized dose optimization techniques were used for this CT. COMPARISON: Comparison is made with prior study dated 05/01/2022. FINDINGS: CHEST A right-sided portacatheter is seen with the tip in the superior vena cava. Stable small benign-appearing bilateral axillary lymph nodes. Stable mild increased linear markings at the lung bases suggestive of scarring. There is no demonstrated pleural abnormality. There are calcifications of the coronary arteries. Minimal anterior cardial thickening. There are multiple small lymph nodes within the mediastinum, which are normal in size and morphology most compatible with reactive lymph hyperplasia. Normal hilar regions. Normal unenhanced pulmonary arteries. Normal aorta arch and descending thoracic aorta. There are multi-level degenerative changes of the thoracic spine. ABDOMEN Stable 9 mm hypodensity suggestive of a small cyst in the posterior aspect of the right lobe of the liver. The patient is status post cholecystectomy. Normal spleen. Normal pancreas. Normal bilateral adrenal glands. Stable 1 cm cyst in the lateral midportion of the right kidney. Stable 3.5 cm cyst in the lower pole of the right kidney. Normal left kidney. Normal visualized stomach. Normal small intestine. There are scattered colonic diverticula consistent with diverticulosis. There are surgical clips in the region of the appendix consistent with a prior appendectomy. There is scattered atherosclerotic calcification of the abdominal aorta, without a demonstrated aneurysm. Normal inferior vena cava. Normal retroperitoneum. Normal abdominal wall. There are diffuse degenerative changes of the visualized lumbar spine. PELVIS Normal urinary bladder. The patient is status post prostatectomy. Normal visualized pelvic arteries. CT/CT Chest, Abd, Pel w/Contrast IMPRESSION: Stable examination. Electronically Signed: Lionel Emmanuel MD at 13:28 EST ,
[2022-09-12] MEDS: 0.9% Saline Lock 10 ML Syringe IV (08:14)
[2022-09-12 08:20] LABS: CREATININE FINGERSTICK 1.4 mg/dL (0.70-1.30)
== END | disposition home or self-care (01) ==
PROVIDERS: PCP Internal Medicine; Visit Provider Internal Medicine Hematology & Oncology
DX: C66.1 Malignant neoplasm of right ureter (principal)
CPT/HCPCS: 71260; 74177; Q9967; A4216

== ENCOUNTER 2022-09-14 18:25 | Observation (INO) | payer MEDICARE, OTHER, SELFPAY ==
[2022-09-14] VITALS (12 sets, daily range): BP systolic 119–157; BP diastolic 64–80; PULSE 71–91; RESP 14–18; TEMP 36.8–37.1; O2SAT 92–98; BMI 31.0; BMI 30.9; BMI 30.3
--- NOTE | 2022-09-14 18:29 | EKG12_ITS ---
Test Reason : DYSRHYTHMIA Blood Pressure : / mmHG Vent. Rate : 088 BPM Atrial Rate : 088 BPM P-R Int : 164 ms QRS Dur : 096 ms QT Int : 354 ms P-R-T Axes : 012 -46 037 degrees QTc Int : 428 ms Sinus rhythm with Fusion complexes Left axis deviation Abnormal ECG Confirmed by BRADLEY AMEZCUA, JESSICA ([id number]), science editor JOEL MEDEIROS ([id number]) on 09/18/2022 10:51:48 AM Referred By: JOEL Confirmed By:MARCELINA HUERTA MD
--- NOTE | 2022-09-14 18:29 | CT_ITS ---
We are attempting to reach an attending provider to discuss findings. An addendum with communication details will be sent when the communication is complete. EXAM: CT ANGIOGRAPHY HEAD AND NECK WITH INTRAVENOUS CONTRAST CLINICAL INDICATION: Neuro deficit, acute, stroke suspected TECHNIQUE: [place]/head and neck CT angiography protocol performed with intravenous contrast. This CT exam was performed using one or more of the following dose reduction techniques: automated exposure control, adjustment of the mA and/or kV according to patient size, and/or use of iterative reconstruction technique. This report was created using [employer] report generation technology. MIP reconstructed images were created and reviewed. CONTRAST: IV 100mL Isovue-[id number] RADIATION DOSE: CTDIvol = 19.80 mGy, DLP = 769.80 mGy-cm COMPARISON: None. FINDINGS: HEAD: RIGHT ANTERIOR CEREBRAL ARTERY: Unremarkable. No significant stenosis at the visualized segments. Anterior communicating artery is present. No aneurysm. RIGHT MIDDLE CEREBRAL ARTERY: Unremarkable. No significant stenosis at the visualized segments. No aneurysm. RIGHT POSTERIOR CEREBRAL ARTERY: Unremarkable. No occlusion or significant stenosis. No aneurysm. RIGHT INTRACRANIAL INTERNAL CAROTID ARTERY: See below. RIGHT INTRACRANIAL VERTEBRAL ARTERY: Unremarkable. No significant stenosis. No dissection or occlusion. LEFT ANTERIOR CEREBRAL ARTERY: Unremarkable. No significant stenosis at the visualized segments. No aneurysm. LEFT MIDDLE CEREBRAL ARTERY: Unremarkable. No significant stenosis at the visualized segments. No aneurysm. LEFT POSTERIOR CEREBRAL ARTERY: Unremarkable. No occlusion or significant stenosis. No aneurysm. LEFT INTRACRANIAL INTERNAL CAROTID ARTERY: Unremarkable. No significant stenosis. No dissection or occlusion. LEFT INTRACRANIAL VERTEBRAL ARTERY: Unremarkable. No significant stenosis. No dissection or occlusion. BASILAR ARTERY: Unremarkable. No significant stenosis. No aneurysm. OTHER VASCULATURE: There is mild atherosclerotic plaque formation of the origin of the right internal carotid artery with less than 50% cross sectional diameter stenosis. ALL ABOVE CRITERIA BY NASCET. There is calcified plaque formation of the right cavernous carotid artery, with a mild stenosis (less than 50%). ALL ABOVE CRITERIA BY NASCET. NECK: RIGHT COMMON CAROTID ARTERY: Unremarkable. No significant stenosis. No dissection or occlusion. RIGHT EXTRACRANIAL INTERNAL CAROTID ARTERY: See above. RIGHT EXTERNAL CAROTID ARTERY: Unremarkable. No occlusion. RIGHT EXTRACRANIAL VERTEBRAL ARTERY: Unremarkable. No significant stenosis. No dissection or occlusion. LEFT COMMON CAROTID ARTERY: Unremarkable. No significant stenosis. No dissection or occlusion. LEFT EXTRACRANIAL INTERNAL CAROTID ARTERY: Unremarkable. No significant stenosis. No dissection or occlusion. LEFT EXTERNAL CAROTID ARTERY: Unremarkable. No occlusion. LEFT EXTRACRANIAL VERTEBRAL ARTERY: Unremarkable. No significant stenosis. No dissection or occlusion. GREAT VESSELS OF AORTIC ARCH: There is calcified plaque formation of the left cavernous carotid artery, with a mild stenosis (less than 50%). ALL ABOVE CRITERIA BY NASCET. LUNG APICES: Unremarkable as visualized. HEAD and NECK: BONES/JOINTS: There are degenerative findings of the cervical spine. No discrete lytic or blastic abnormalities. SOFT TISSUES: Unremarkable. CAROTID STENOSIS REFERENCE USING NASCET CRITERIA: % ICA stenosis = (1 - narrowest ICA diameter/diameter of distal cervical ICA) x 100. Mild - <50% stenosis. Moderate - 50-69% stenosis. Severe - 70-94% stenosis. Near occlusion - 95-99% stenosis. Occluded - 100% stenosis. CT/STROKE CTA Head AND Neck W/Con IMPRESSION: 1. There is mild atherosclerotic plaque formation of the origin of the right internal carotid artery with less than 50% cross sectional diameter stenosis. ALL ABOVE CRITERIA BY NASCET. 2. There is calcified plaque formation of the right cavernous carotid artery, with a mild stenosis (less than 50%). ALL ABOVE CRITERIA BY NASCET. 3. There is calcified plaque formation of the left cavernous carotid artery, with a mild stenosis (less than 50%). ALL ABOVE CRITERIA BY NASCET. Electronically Signed: Zeb Franz MD at 20:03 EST ,
--- NOTE | 2022-09-14 18:29 | CT_ITS ---
We are attempting to reach an attending provider to discuss findings. An addendum with communication details will be sent when the communication is complete. STUDY: CT BRAIN WITHOUT CONTRAST REASON FOR EXAM: Male, 81 years old. Neuro deficit, acute, stroke suspected Individualized dose optimization techniques were used for this CT. TECHNIQUE: Transaxial CT imaging of the brain was performed without administration of intravenous contrast material. COMPARISON: None FINDINGS: There are calcifications around the carotid artery. These are noted in the cavernous carotid arteries. Normal calvarium. Normal soft tissues. There is mild cerebral atrophy with widening of the extra-axial spaces and ventricular dilatation. There are areas of decreased attenuation within the white matter tracts of the supratentorial brain, consistent with microvascular disease changes. Normal basal ganglia and thalami. Normal brainstem. There is mild cerebellar atrophy. There is no intracranial hemorrhage. There are no findings of an acute ischemic infarction. Normal visualized paranasal sinuses. ASPECTS Score for Acute Strokes: 10/ CT/STROKE Brain/Head without Cont IMPRESSION: There are no acute findings. Chronic involutional changes of the brain. Electronically Signed: Zeb Franz MD at 19:53 EST ,
--- NOTE | 2022-09-14 18:32 | ED.VIS.STROK ---
HPI History of Present Illness Chief Complaint: Neuro S/Sx Informant: patient Narrative Narrative: Patient presents after episodes of amaurosis fugax. He was just seen in Dr. Welch's office. I did discuss the case directly with Dr. Welch. This provided very important valuable information. He did a dilated exam and saw no macular retinal cause of this patient's symptoms. The patient states he has had 3 episodes over the last couple weeks where he is lost partial vision of his right eye. This past Sunday, he lost total vision of the right eye for about 5 minutes. It has returned back to normal and is normal now. He denies any other symptoms with this. He has had no head pain or roman catholic pain. He has had no numbness tingling weakness. No balance problems. No change in speech or understanding of speech. No discoordination. Nothing specifically brings this on or makes it better. Patient does have a history of high blood pressure. He does not have diabetes or prior stroke. He does have a med port in because he had chemotherapy for ureteral cancer. He denies being on any anticoagulation at this time. I did review the chart for his past medical, surgical history as well as medications allergies and family history. 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) History of echocardiogram History of edema History of stress test Mallet finger of left finger(s) Myelosuppression Narcolepsy Non-smoker Obesity (BMI 30.0-34.9) Osteoarthritis Pancreatitis Pancytopenia Skin cancer Sleep apnea Wears glasses Home Medications albuterol sulfate 90 mcg/actuation aerosol inhaler 1 puff inhalation Q4H PRN PRN Shortness Of Breath 06/10/17 [History Last Taken 11/18/21 04:30] budesonide-formoterol HFA 80 mcg-4.5 mcg/actuation aerosol inhaler (Symbicort) 1 inh inhalation DAILY 05/31/22 [History Last Taken Unknown] amlodipine 2.5 mg tablet 2.5 mg PO DAILY BP #90 tabs 08/16/22 [Rx Last Taken Unknown] mecobalamin (vitamin B12) 1,000 mcg chewable tablet (B12 Active) 1,000 mcg PO QODAY 09/14/22 [History Last Taken Unknown] modafinil 200 mg tablet 200 mg PO DAILY seizures 09/14/22 [History Last Taken Unknown] Allergy/AdvReac Type Severity Reaction Status Date / Time Penicillins Allergy Unknown Verified 09/14/22 18:31 Sulfa (Sulfonamide Allergy Unknown Verified 09/14/22 18:31 Antibiotics) Family History Mother CAD (coronary artery disease) Father Cancer Other CVA (cerebral vascular accident) Hypertension Surgical History H/O hernia repair H/O knee surgery H/O prostatectomy H/O transurethral resection of prostate History of appendectomy History of cholecystectomy (02/29/20) History of cystoscopy History of ERCP History of malignant neoplasm of ureter (~07/06/21) History of radiofrequency ablation procedure for cardiac arrhythmia (03/17/08) History of removal of Port-a-Cath Hx of cystoscopy Hx of total knee arthroplasty Hx of total knee arthroplasty Social History Smoking Status: Never smoker alcohol intake: never substance use type: does not use what type of physical activity do you participate in: none EXAM Physical Exam Narrative Exam Narrative: Patient is awake alert. I watched him walk back into the room. He is very stable gait. He is able to get undressed and dressed in a gown without any difficulty. No sign of facial trauma. Eye is dilated and has pupillary changes but this is due to the recent exam. Range of motion is still intact. Visual field is grossly intact but he has had a comprehensive ocular exam by religious assistant within the last hour. No bruit on the neck is heard. Heart does sound to be regular. He has a med port noted in the right upper chest. Lungs are clear. Abdomen is benign. There is no tenderness or mass. There is no CVA tenderness. Extremities show no petechiae or rash. Skin is clear. His NIH is 0 at this time. Const Vital Signs: 09/14/22 18:26 09/14/22 18:45 09/14/22 18:29 Temperature 98.7 F Temperature Source Temporal Pulse Rate 91 88 Respiratory Rate 15 16 Blood Pressure 157/69 H 127/70 H Blood Pressure Mean 98 89 Pulse Ox 94 98 98 Oxygen Delivery Method Room Air Room Air Room Air 09/14/22 18:59 09/14/22 19:29 09/14/22 20:00 Temperature Temperature Source Pulse Rate 80 80 80 Respiratory Rate 16 15 16 Blood Pressure 137/70 H 149/76 H 132/64 H Blood Pressure Mean 92 100 86 Pulse Ox 98 97 92 Oxygen Delivery Method Room Air Room Air Room Air 09/14/22 20:30 09/14/22 20:26 Temperature Temperature Source Pulse Rate 80 80 Respiratory Rate 16 Blood Pressure 137/78 H Blood Pressure Mean 97 Pulse Ox 95 Oxygen Delivery Method Room Air MDM MDM MDM Narrative Medical decision making narrative: CT scan of the head by my independent interpretation shows no sign of acute mass or bleeding. Final reading by radiology is also no acute. The CTA of his head and neck read by radiology also shows no acute large vessel occlusion. Blood work showed some mildly low white count which is not new. He also had mild anemia 12.2. Platelets were also a bit low. Coagulation studies were normal. Sodium is low 132 but I do not think this is the cause of his symptoms. He has some mild baseline elevation of the creatinine. ESR was mildly elevated at 33 C-reactive protein was high. However, he has no temporal artery tenderness or headache. I also discussed the case with the radiologist who read the images directly. I also discussed case with our hospitalist here including his risk factor studies labs and visit with ophthalmology. This patient does have multiple episodes of amaurosis fugax. These are consistent with TIAs. The last 1 was more severe. He does have aged and chronic blood pressure so his risk factors. He will be brought in the hospital for further evaluation. Lab Data Attestation: I reviewed the patient's lab results. Labs: Laboratory Results - last 24 hr 09/14/22 09/14/22 09/14/22 18:40 18:40 18:40 WBC 3.7 L RBC 3.85 L Hgb 12.2 L Hct 36.9 L MCV 95.8 H MCH 31.7 MCHC 33.1 RDW Std Deviation 48.0 H RDW Coeff of [place] 13.6 Plt Count 140 L MPV 9.3 Immature Gran % (Auto) 0.500 Neut % (Auto) 56.1 Lymph % (Auto) 28.2 [place] % (Auto) 13.3 H Eos % (Auto) 1.4 Baso % (Auto) 0.5 Absolute Neuts (auto) 2.1 Absolute Lymphs (auto) 1.04 Nucleated RBC % 0 ESR 33 H PT 13.3 INR 1.0 APTT 35.0 Sodium 132 L Potassium 3.8 Chloride 102 Carbon Dioxide 24.0 Anion Gap 6 BUN 23 H Creatinine 1.57 H Estim Creat Clear Calc 41.88 Est GFR (MDRD) Af Amer 55 L Est GFR (MDRD) Non-Af 45 L BUN/Creatinine Ratio 14.6 Glucose 145 H Calcium 8.5 Troponin I High Sens 8 C-React Prot Ext Range 31.40 H Radiography Diagnostic Testing: Clinical Impression(s) from Imaging Studies Brain CT 09/14/22 18:29 IMPRESSION: There are no acute findings. Chronic involutional changes of the brain. Electronically Signed: Zeb Franz MD at 19:53 EST , ADDENDUM: 09/14/222000 IMPRESSION: There are no acute findings. Chronic involutional changes of the brain. N.B. : The above Results were Read Back by Zeb Franz MD to PEREZ MURDOCK MD, and understanding confirmed on 09/14/2022 19:55:04 (ET). Electronically Signed: Zeb Franz MD at 19:53 EST , Head/Neck CTA 09/14/22 18:29 IMPRESSION: 1. There is mild atherosclerotic plaque formation of the origin of the right internal carotid artery with less than 50% cross sectional diameter stenosis. ALL ABOVE CRITERIA BY NASCET. 2. There is calcified plaque formation of the right cavernous carotid artery, with a mild stenosis (less than 50%). ALL ABOVE CRITERIA BY NASCET. 3. There is calcified plaque formation of the left cavernous carotid artery, with a mild stenosis (less than 50%). ALL ABOVE CRITERIA BY NASCET. Electronically Signed: Zeb Franz MD at 20:03 EST , ADDENDUM: 09/14/222010 IMPRESSION: 1. There is mild atherosclerotic plaque formation of the origin of the right internal carotid artery with less than 50% cross sectional diameter stenosis. ALL ABOVE CRITERIA BY NASCET. 2. There is calcified plaque formation of the right cavernous carotid artery, with a mild stenosis (less than 50%). ALL ABOVE CRITERIA BY NASCET. 3. There is calcified plaque formation of the left cavernous carotid artery, with a mild stenosis (less than 50%). ALL ABOVE CRITERIA BY NASCET. N.B. : The above Results were Read Back by Zeb Franz MD to PEREZ MURDOCK MD, and understanding confirmed on 09/14/2022 20:04:33 (ET). Electronically Signed: Zeb Franz MD at 20:03 EST , Chest X-Ray 09/14/22 19:25 IMPRESSION: There are no acute findings. Electronically Signed: Zeb Franz MD at 19:44 EST , EKG Initial EKG: Comments: My independent interpretation of EKG. EKG done looking for dysrhythmia for work-up of TIA. EKG shows sinus rhythm with an occasional fusion complex. No acute ST elevation or depression. [place] interval, QRS duration and QTc are normal. Discharge Plan Dx/Rx/DC Orders Clinical Impression: Amaurosis fugax of right eye, Pancytopenia, Brain TIA, History of hypertension Disposition Disposition: Acute Care Hospital [facility]
[2022-09-14 19:04] LABS: Absolute Lymphocyte Count 1.04 X10^3/uL (0.83-4.51); Absolute Neutrophil Count 2.1 X10^3/uL (2.0-7.7); Basophil# 0.02 X10^3/uL; Basophil% 0.5 % (0-1); Eosinophil# 0.05 X10^3/uL; Eosinophils% 1.4 % (0-5); Hematocrit 36.9 % (40-54); Hemoglobin 12.2 g/dL (13.0-16.5); Lymphocyte # 1.04 X10^3/ul (0.83-4.51); Lymphocyte % 28.2 % (19-41); Mean Corp Hgb Conc 33.1 g/dL (32-36); Mean Corpuscular Hgb 31.7 pg (27.0-32.0); Mean Corpuscular Volume 95.8 fL (80-94); Mean Platelet Vol. 9.3 fl (6.2-12.0); Monocyte# 0.49 X10^3/uL; Monocyte% 13.3 % (0-10); NRBC Flagged by Analyzer 0 % (0-5); Neutrophil # 2.07 X10^3/uL (2.7-7.7); Neutrophil % 56.1 % (47-70); Platelet Count 140 K/mm3 (150-450); RBC Distribution Width CV 13.6 % (11.6-14.6); Red Blood Count 3.85 M/mm3 (4.6-6.2); White Blood Count 3.7 K/mm3 (4.4-11.0)
[2022-09-14 19:12] LABS: Prothrombin Time (Protime)PT. 13.3 SECONDS (11.7-14.9)
[2022-09-14 19:22] LABS: Erythrocyte Sedimentation Rate 33 mm/hr (0-20)
[2022-09-14 19:23] LABS: Anion Gap 6 (5-15); BUN 23 mg/dL (7-18); BUN/Creat Ratio 14.6 RATIO (10-20); Calcium,Total 8.5 mg/dL (8.5-10.1); Chloride 102 mmol/L (98-107); Creatinine, Serum 1.57 mg/dL (0.70-1.30); EST Glomerular Filtration Rate 45 mL/min (>60); Est Glom Filt Rate - Afr Amer 55 mL/min (>60); Estimated Creatinine Clearance 41.88 ml/min; Glucose 145 mg/dL (74-106); Potassium 3.8 mmol/L (3.5-5.1); Sodium Level 132 mmol/L (136-145); Troponin-I HS 8 pg/mL (3.0-78.0)
--- NOTE | 2022-09-14 19:25 | RAD_ITS ---
STUDY: X-RAY CHEST REASON FOR EXAM: Male, 81 years old. Neuro deficit, acute, stroke suspected TECHNIQUE: XR Chest 1 View COMPARISON: 12.23.21 FINDINGS: There is atherosclerotic calcification of the aortic arch with tortuosity. There are diffuse degenerative changes of the visualized thoracic spine. There is degenerative osteoarthritis of the bilateral shoulders. There is a right Port-A-Cath and/or mediport in place. The tip is in the superior vena cava. Normal size heart. Normal mediastinum and atul. Normal visualized pulmonary arteries. There is no demonstrated abnormality of the visualized soft tissue structures of the upper abdomen. RAD/Chest 1 View IMPRESSION: There are no acute findings. Electronically Signed: Zeb Franz MD at 19:44 EST ,
--- NOTE | 2022-09-14 21:04 | HP.PCM.HOS_ITS ---
HPI - General General Date of Admission: 09/14/22 Date of Service: 09/14/22 Chief Complaint: Dark spot in right eye HPI Narrative KASSI MARCIAL, is a 81 M with a significant history of bladder cancer status post BCG administration who presents to the emergency department with multiple episodes of dark spots in his right eye. His symptoms started about 3 to 4 weeks ago and he has about 5 minutes episodes where he sees dark spots in the upper left corner of his right eye. These episodes occurred about 3-4 times. Aside these 3-4 times he also had an episode 4 days ago where he he could not see entirely from his right eye. The latter episode also lasted for 5 minutes. On day of presentation he went to see his eye doctor reported pupillary dilatation exams. Reportedly patient was told that there were no abnormalities seen in his side so he was sent to the emergency department. Per show worker recommendation ESR and CRP was done at the emergency department. Patient denies any speech changes. He denies any weakness. He denies any other symptoms. 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 Cardiology follow-up encounter Chronic cholecystitis CINV (chemotherapy-induced nausea and vomiting) CPAP (continuous positive airway pressure) dependence CRF (chronic renal failure) Encounter for adjustment and management of vascular access device Encounter for chemotherapy management Encounter for education Encounter for insertion of venous access port Essential (primary) hypertension Frequent unifocal premature ventricular contractions (02/2020) History of echocardiogram History of edema History of stress test Mallet finger of left finger(s) Myelosuppression Narcolepsy Non-smoker Obesity (BMI 30.0-34.9) Osteoarthritis Pancreatitis Pancytopenia Skin cancer Sleep apnea Wears glasses Home Medications albuterol sulfate 90 mcg/actuation aerosol inhaler 1 puff inhalation Q4H PRN PRN Shortness Of Breath 06/10/17 [History Last Taken 11/18/21 04:30] budesonide-formoterol HFA 80 mcg-4.5 mcg/actuation aerosol inhaler (Symbicort) 1 inh inhalation DAILY 05/31/22 [History Last Taken Unknown] amlodipine 2.5 mg tablet 2.5 mg PO DAILY BP #90 tabs 08/16/22 [Rx Last Taken Unknown] Allergy/AdvReac Type Severity Reaction Status Date / Time Penicillins Allergy Unknown Verified 09/14/22 18:31 Sulfa (Sulfonamide Allergy Unknown Verified 09/14/22 18:31 Antibiotics) Family History Mother CAD (coronary artery disease) Father Cancer Other CVA (cerebral vascular accident) Hypertension Surgical History H/O hernia repair H/O knee surgery H/O prostatectomy H/O transurethral resection of prostate History of appendectomy History of cholecystectomy (02/29/20) History of cystoscopy History of ERCP History of malignant neoplasm of ureter (~07/06/21) History of radiofrequency ablation procedure for cardiac arrhythmia (03/17/08) History of removal of Port-a-Cath Hx of cystoscopy Hx of total knee arthroplasty Hx of total knee arthroplasty Social History Smoking Status: Never smoker alcohol intake: never substance use type: does not use what type of physical activity do you participate in: none ROS ROS Narrative Pertinent positives and pertinent negatives as noted in HPI. All other systems were reviewed and are negative Vital Signs Vital Signs Vital Signs: 09/14/22 18:26 09/14/22 18:45 09/14/22 18:29 Temperature 98.7 F Temperature Source Temporal Pulse Rate 91 88 Respiratory Rate 15 16 Blood Pressure 157/69 H 127/70 H Blood Pressure Mean 98 89 Pulse Ox 94 98 98 Oxygen Delivery Method Room Air Room Air Room Air 09/14/22 18:59 09/14/22 19:29 09/14/22 20:00 Temperature Temperature Source Pulse Rate 80 80 80 Respiratory Rate 16 15 16 Blood Pressure 137/70 H 149/76 H 132/64 H Blood Pressure Mean 92 100 86 Pulse Ox 98 97 92 Oxygen Delivery Method Room Air Room Air Room Air 09/14/22 20:30 09/14/22 20:26 Temperature Temperature Source Pulse Rate 80 80 Respiratory Rate 16 Blood Pressure 137/78 H Blood Pressure Mean 97 Pulse Ox 95 Oxygen Delivery Method Room Air Weight Weight: 103.3 kg Body Mass Index (BMI) 30.9 Physical Exam Narrative Physical exam: General: Well-nourished, well-developed. Head: Normocephalic, atraumatic, no tenderness Eyes: Vision is grossly intact. EOMI ENT, no trauma, moist mucous membranes, no rhinorrhea Neck: Nontender, No thyromegaly. CVS: Regular rate and rhythm. S1-S2 present. No murmur, gallop or rub. Respiratory : clear to auscultation bilaterally, chest wall nontender, no wheezing Abdomen: Soft, nontender, nondistended, normal bowel sounds, no masses : Deferred Back: Nontender, no CVA tenderness, no midline spinal tenderness, deformities, step-offs Extremities: Nontender full range of motion, no trauma Skin: Normal color, no trauma, abrasions Neuro: Alert, oriented, cranial nerves II through XII grossly intact. Strength 5 out of 5 in all 4 extremities. No hyperreflexia in knee jerk reflex; and elbow reflex. No dysmetria with [id number] test and jyrs-[id number] test. Psychiatry: Normal mood. Normal affect. Not depressed. Not anxious. Results Lab / Micro Data Result Diagrams: 09/14/22 18:40 09/14/22 18:40 Labs: Laboratory Results - last 24 hr 09/14/22 18:40: WBC 3.7 L, RBC 3.85 L, Hgb 12.2 L, Hct 36.9 L, MCV 95.8 H, MCH 31.7, MCHC 33.1, RDW Std Deviation 48.0 H, RDW Coeff of Alice 13.6, Plt Count 140 L, MPV 9.3, Immature Gran % (Auto) 0.500, Neut % (Auto) 56.1, Lymph % (Auto) 28.2, Yates % (Auto) 13.3 H, Eos % (Auto) 1.4, Baso % (Auto) 0.5, Absolute Neuts (auto) 2.1, Absolute Lymphs (auto) 1.04, Nucleated RBC % 0, ESR 33 H 09/14/22 18:40: PT 13.3, INR 1.0, APTT 35.0 09/14/22 18:40: Sodium 132 L, Potassium 3.8, Chloride 102, Carbon Dioxide 24.0, Anion Gap 6, BUN 23 H, Creatinine 1.57 H, Estim Creat Clear Calc 41.88, Est GFR (MDRD) Af Amer 55 L, Est GFR (MDRD) Non-Af 45 L, BUN/Creatinine Ratio 14.6, Glucose 145 H, Calcium 8.5, Troponin I High Sens 8, C-React Prot Ext Range 31.40 H Radiology Impression Brain CT 09/14/22 18:29 IMPRESSION: There are no acute findings. Chronic involutional changes of the brain. Electronically Signed: Zeb Franz MD at 19:53 EST , ADDENDUM: 09/14/222000 IMPRESSION: There are no acute findings. Chronic involutional changes of the brain. N.B. : The above Results were Read Back by Zeb Franz MD to PEREZ MURDOCK MD, and understanding confirmed on 09/14/2022 19:55:04 (ET). Electronically Signed: Zeb Franz MD at 19:53 EST , Head/Neck CTA 09/14/22 18:29 IMPRESSION: 1. There is mild atherosclerotic plaque formation of the origin of the right internal carotid artery with less than 50% cross sectional diameter stenosis. ALL ABOVE CRITERIA BY NASCET. 2. There is calcified plaque formation of the right cavernous carotid artery, with a mild stenosis (less than 50%). ALL ABOVE CRITERIA BY NASCET. 3. There is calcified plaque formation of the left cavernous carotid artery, with a mild stenosis (less than 50%). ALL ABOVE CRITERIA BY NASCET. Electronically Signed: Zeb Franz MD at 20:03 EST , ADDENDUM: 09/14/222010 IMPRESSION: 1. There is mild atherosclerotic plaque formation of the origin of the right internal carotid artery with less than 50% cross sectional diameter stenosis. ALL ABOVE CRITERIA BY NASCET. 2. There is calcified plaque formation of the right cavernous carotid artery, with a mild stenosis (less than 50%). ALL ABOVE CRITERIA BY NASCET. 3. There is calcified plaque formation of the left cavernous carotid artery, with a mild stenosis (less than 50%). ALL ABOVE CRITERIA BY NASCET. N.B. : The above Results were Read Back by Zeb Franz MD to PEREZ MURDOCK MD, and understanding confirmed on 09/14/2022 20:04:33 (ET). Electronically Signed: Zeb Franz MD at 20:03 EST , Chest X-Ray 09/14/22 19:25 IMPRESSION: There are no acute findings. Electronically Signed: Zeb Franz MD at 19:44 EST , Assessment & Plan Assessment/Plan (1) Amaurosis fugax of right eye: (2) Essential (primary) hypertension: PLAN: Plan Amaurosis fugax of the right eye No serial NINDS NIH Scale since last symptoms occurred 4 days ago. Impression of head CT by radiology: No acute abnormality seen. Upon my personal head CT image review: I agree with radiologist interpretation No hemodynamically significant stenosis on CTA neck and head. Lipid profile and A1c ordered. Daily aspirin ordered. Patient reported that previously he used to take aspirin every couple of days but upon discussion with his cardiology that was stopped. Shared decision to get lipid panel and if LDL is more than 70 to start on high intensity statin Outside window of permissive hypertension. MRI of head. Carotid ultrasound and echocardiogram ordered. Hypertension Blood pressure is stable Home amlodipine continued Trend blood pressure and adjust blood pressure medications. DVT prophylaxis Subcutaneous Lovenox ordered. Charges/Coding Visit Charges Inpatient E&M: 31480 Init Hosp L2
--- NOTE | 2022-09-14 22:38 | ECHOD_ITS ---
Reason For Study: TIA/CVA Procedure This was a 2D Doppler, Color Flow transthoracic echocardiogram. Exam performed portable in patient room. Left Ventricle Normal LV size. The estimated ejection fraction is 70 %. No evidence for diastolic dysfunction. No regional wall motion abnormalities noted. Right Ventricle Normal RV size. Normal systolic function. Atria Normal left atrium. Normal right atrium. No doppler evidence for ASD. Bubble contrast study negative for right to left interatrial shunt. Mitral Valve There is no mitral valve stenosis. No mitral valve insufficiency. Tricuspid Valve There is no tricuspid stenosis. Unable to estimate RV systolic pressure due to insufficient tricuspid regurgitant envelope. Aortic Valve There is no aortic stenosis. Trivial aortic valve insufficiency. Pulmonic Valve There is no pulmonic valvular stenosis. No pulmonic valve insufficiency. Great Vessels Normal aortic root. Pericardium/Pleural No pericardial effusion. Medication Performed a rapid injection of agitated mix of 9 cc saline and 1cc air to assess for atrial septal defect. MMode/2D Measurements & Calculations LAV(MOD-sp4): 46.7 ml SV(MOD-sp4): 53.5 ml LVAd ap4: 30.9 cm2 LVLd ap4: 9.2 cm EDV(MOD-sp4): 86.3 ml EDV(sp4-el): 88.4 ml LVAs ap4: 16.1 cm2 LVLs ap4: 7.1 cm ESV(MOD-sp4): 32.7 ml ESV(sp4-el): 31.3 ml EF(MOD-sp4): 62.1 % EF(sp4-el): 64.6 % SV(sp4-el): 57.1 ml LA A4 area: 18.7 cm2 LA dimension(2D): 3.9 cm RA A4 area: 17.6 cm2 Time Measurements MV dec time: 0.25 sec Doppler Measurements & Calculations MV E max ion: 74.5 cm/sec Lat Peak E' Ion: 11.6 cm/sec Med Peak E' Ion: 9.8 cm/sec MV A max ion: 87.0 cm/sec E/E' lat: 6.4 E/E' med: 7.6 MV E/A: 0.86 MV V2 max: 92.2 cm/sec MV dec slope: 302.6 cm/sec2 Ao V2 max: 171.6 cm/sec MV max P.4 mmHg Ao max P.8 mmHg MV V2 mean: 68.4 cm/sec Ao V2 mean: 124.6 cm/sec MV mean P.0 mmHg Ao mean P.9 mmHg MV V2 VTI: 35.9 cm Ao V2 VTI: 30.3 cm LV V1 max: 160.3 cm/sec PA V2 max: 95.4 cm/sec LV V1 max P.3 mmHg PA V2 mean: 71.1 cm/sec ECHO/Echo Complete Interpretation Summary The estimated ejection fraction is 70 %. No evidence for diastolic dysfunction. Trivial aortic valve insufficiency. Ordering Physician: Jakub Powell Referring Physician: Oumou Mena M.D. Performed By: Riya Dempsey RCS
--- NOTE | 2022-09-14 22:38 | CDU_ITS ---
Reason For Study: Amaurosis Fugax Rt. Velocities/BP Lt. Velocities/BP Prox CCA 84/19 cm/sec. Prox CCA 107/23 cm/sec. Mid CCA 64/17 cm/sec. Mid CCA 95/25 cm/sec. Dist CCA 84/22 cm/sec. Dist CCA 71/15 cm/sec. Prox ICA 69/15 cm/sec. Prox ICA 69/18 cm/sec. Mid ICA 77/20 cm/sec. Mid ICA 62/21 cm/sec. Dist ICA 80/22 cm/sec. Dist ICA 78/22 cm/sec. Rt. ICA/CCA = 1.2. Lt. ICA/CCA = 0.8. Prox ECA 85/12 cm/sec. Prox ECA 94/11 cm/sec. Rt. Vert. 37/10 cm/sec. Lt. Vert. 54/17 cm/sec. Right Extracranial There is heterogeneous, irregular atherosclerotic plaque noted in the right common carotid artery. There is intimal thickening but no significant atherosclerotic plaque noted in the right internal carotid artery. There is heterogeneous, smooth atherosclerotic plaque noted in the right external carotid artery. Antegrade flow is noted in the right vertebral artery. Left Extracranial There is intimal thickening but no significant atherosclerotic plaque noted in the left common carotid artery. There is intimal thickening but no significant atherosclerotic plaque noted in the left internal carotid artery. There is intimal thickening but no significant atherosclerotic plaque noted in the left external carotid artery. Antegrade flow is noted in the left vertebral artery. Procedure Carotid Duplex 47726. This is a Carotid Duplex examination using B-mode, color flow and specral Doppler. Exam performed portable in patient room. VL/Carotid Duplex Ultrasound Interpretation Summary Smooth plaque at the proximal right internal carotid with <50% stenosis Less than 50% stenosis right external carotid Intimal thickening at the proximal left internal carotid artery with less than 50% stenosis Less than 50% stenosis left external carotid artery Patent and antegrade vertebral arteries bilaterally Ordering Physician: Jakub Powell Referring Physician: Oumou Mena Performed By: Lupe Fountain RDCS, RVT
[2022-09-15 03:00] VITALS: PULSE 74
[2022-09-15 03:23] VITALS: BP 131/79; PULSE 80; RESP 16; TEMP 37.3; O2SAT 94
[2022-09-15 04:28] LABS: Absolute Lymphocyte Count 0.84 X10^3/uL (0.83-4.51); Absolute Neutrophil Count 1.5 X10^3/uL (2.0-7.7); Basophil# 0.03 X10^3/uL; Eosinophil# 0.06 X10^3/uL; Eosinophils% 1.9 % (0-5); Hematocrit 34.2 % (40-54); Hemoglobin 11.3 g/dL (13.0-16.5); Lymphocyte # 0.84 X10^3/ul (0.83-4.51); Lymphocyte % 27.1 % (19-41); Mean Corpuscular Hgb 31.6 pg (27.0-32.0); Mean Corpuscular Volume 95.5 fL (80-94); Mean Platelet Vol. 9.6 fl (6.2-12.0); Monocyte# 0.64 X10^3/uL; Monocyte% 20.6 % (0-10); NRBC Flagged by Analyzer 0 % (0-5); Neutrophil % 48.4 % (47-70); Platelet Count 121 K/mm3 (150-450); RBC Distribution Width CV 13.6 % (11.6-14.6); RBC Distribution Width SD 47.6 fl (35.1-43.9); Red Blood Count 3.58 M/mm3 (4.6-6.2); White Blood Count 3.1 K/mm3 (4.4-11.0)
[2022-09-15 04:49] LABS: Anion Gap 8 (5-15); BUN 25 mg/dL (7-18); BUN/Creat Ratio 16.4 RATIO (10-20); Calcium,Total 8.1 mg/dL (8.5-10.1); Chloride 101 mmol/L (98-107); Cholesterol 153 mg/dL (200); Creatinine, Serum 1.52 mg/dL (0.70-1.30); EST Glomerular Filtration Rate 47 mL/min (>60); Est Glom Filt Rate - Afr Amer 57 mL/min (>60); Estimated Creatinine Clearance 43.25 ml/min; Glucose 108 mg/dL (74-106); High Density Lipoprotein 30 mg/dL; Potassium 4.2 mmol/L (3.5-5.1); Sodium Level 133 mmol/L (136-145); Triglycerides 160 mg/dL; Very Low Density Lipoprotein 32 mg/dL (5-40)
--- NOTE | 2022-09-15 06:00 | MRI_ITS ---
STUDY: MRI BRAIN WITHOUT CONTRAST REASON FOR EXAM: Male, 81 years old. STROKE rt vision loss, luq black, resolved now TECHNIQUE: Standardized multiplanar fat and water weighted pulse sequences were obtained. COMPARISON: Head CT dated September 14, 2022 FINDINGS: There is moderate cerebral atrophy with widening of the extra-axial spaces and ventricular dilatation. There are a limited number of small white matter hyperintensities, distributed throughout the deep white matter tracts of the cerebral hemispheres, consistent with mild chronic white matter ischemic changes. There is no evidence for recent intracranial ischemia or other cause of cytotoxic edema on diffusion weighted imaging (DWI). Normal T2* images of the brain without demonstrated susceptibility artifact. There is no demonstrated hemosiderin stain. Normal bilateral basal ganglia. Normal thalami. There is no extra-axial fluid accumulation. Normal flow voids within the major intracranial circulation suggesting patency by spin echo criteria. Normal sella turcica, pituitary gland, infundibular stalk, optic chiasm and hypothalamus. Normal tectal plate and pineal gland. Normal midbrain, charisse and medulla. Normal cerebellum. Normal basal cisterns. Normal bilateral temporal bones. Normal bilateral internal auditory canals. No demonstrated orbital abnormality, within the constraints of a routine brain study. Normal visualized paranasal sinuses. Normal calvarium and skull base. Normal visualized soft tissue structures. Normal visualized upper cervical spine. MRI/Brain without Contrast IMPRESSION: 1. Involutional changes of the brain, as described above. 2. No demonstrated acute infarct or intracranial hemorrhage. Electronically Signed: Sunil Bruner MD at 10:40 EST ,
[2022-09-15 07:05] VITALS: PULSE 77; RESP 16; O2SAT 95
[2022-09-15] MEDS: Albuterol 2.5 MG/3 ML VIAL.NEB. INHALATION ×2 (07:05→12:59)
[2022-09-15] MEDS: Budesonide Respules 0.5 MG/2 ML AMPUL.NEB. INHALATION (07:05)
[2022-09-15 09:18] VITALS: BP 106/64; PULSE 80; RESP 20; TEMP 36.8; O2SAT 94
[2022-09-15] MEDS: Aspirin 81 MG TAB.CHEW PO (09:19)
[2022-09-15] MEDS: Enoxaparin 40 MG/0.4 ML Syringe SC (09:19)
[2022-09-15] MEDS: amLODIPine 2.5 MG Tablet PO (09:19)
[2022-09-15 12:59] VITALS: PULSE 79; RESP 16
--- NOTE | 2022-09-15 13:44 | PCM.DC ---
Discharge Instructions Diet Discharge Diet: Low fat / Low cholesterol and 2000 mg Sodium Diet Activity Discharge Activity: Return to Normal Activity Follow Up Care Test Results: Test results from this visit will be discussed in further detail at your follow-up appointment, if applicable. Discharge Plan Admission Admit Date/Time: 09/14/22 20:52 Primary Reason for Your Visit: TIA Attending Provider: Perla Salinas Primary Care Provider: Oumou Mena Consulting Providers: Jakub Powell Instructions Additional Instructions / Restrictions: Take note of your new medication Follow a low-salt, low-fat diet Follow-up with your primary care doctor within 1 week Follow-up with your manager utilization as scheduled Discharge Orders/Prescriptions Prescriptions: New aspirin 81 mg Tablet,Chewable 81 mg PO BREAKFAST 30 Days Qty: 30 0RF atorvastatin 40 mg tablet 40 mg PO DAILY 30 Days Qty: 30 0RF Continued albuterol sulfate 1 INHALER inhaler 1 puff inhalation Q4H PRN PRN (Reason: Shortness Of Breath) Label Comments: breathing budesonide-formoterol [Symbicort] 80-4.5 mcg/actuation Hfa Aerosol Inhaler 1 inh INHALATION DAILY modafinil 200 mg Tablet 200 mg PO DAILY mecobalamin (vitamin B12) [B12 Active] 1,000 mcg Tablet,Chewable 1,000 mcg PO QODAY amlodipine 2.5 mg tablet 2.5 mg PO DAILY Qty: 90 3RF Referrals / Follow Up: Oumou Mena MD [Primary Care Provider] - Disposition Disposition (needs filled in before D/C Order can be placed): Home, Self Care
--- NOTE | 2022-09-15 13:47 | DS.PCM_ITS ---
Providers Date of Admission: 09/14/22 Date of Discharge: 09/15/22 Primary Care Physician: Dr. Oumou Mena MD Reason For Visit: AMAUROSIS FUGAX Diagnosis Discharge Diagnosis (1) Amaurosis fugax of right eye: Status: Acute Code(s): G45.3 - Amaurosis fugax (2) Essential (primary) hypertension: Status: Chronic Code(s): I10 - Essential (primary) hypertension Medications at Discharge Home Medications albuterol sulfate 90 mcg/actuation aerosol inhaler 1 puff inhalation Q4H PRN PRN Shortness Of Breath 06/10/17 budesonide-formoterol HFA 80 mcg-4.5 mcg/actuation aerosol inhaler (Symbicort) 1 inh inhalation DAILY 05/31/22 amlodipine 2.5 mg tablet 2.5 mg PO DAILY BP #90 tabs 08/16/22 mecobalamin (vitamin B12) 1,000 mcg chewable tablet (B12 Active) 1,000 mcg PO QODAY 09/14/22 modafinil 200 mg tablet 200 mg PO DAILY seizures 09/14/22 aspirin 81 mg chewable tablet 81 mg PO BREAKFAST 30 days #30 tabs 09/15/22 atorvastatin 40 mg tablet 40 mg PO DAILY 30 days #30 tabs 09/15/22 Hospital Course Operations None Procedures 2-D Echocardiogram Summary of Care Provided Minutes Spent on Discharge: 35 Hospital Course: 81-year-old male with multiple comorbidities including that of CAD status post BCG administration who comes in with multiple episodes of dark spots in his right eye that started about a month ago. Patient has episodic episodes where he sees dark spots in the upper corner of his right eye. This has happened 3-4 times. He also had an episode where he could not see at all from his right eye. This lasted for about 5-minute. He presented to his eye doctor examined his eye and did not see any abnormalities. His bus greaser recommended referral to the hospital for evaluation for acute stroke. Patient was admitted to the progressive care unit and managed as acute stroke. MRI brain was unremarkable. He denied any symptoms at time of being seen. His 2D echo showed EF of 70%, no PFO, no valvular abnormality. His lipid profile was not controlled with triglycerides of 160, total cholesterol 153, LDL 91, V LDL 32, HDL 30. He was recommended to continue on aspirin and statin and follow-up with his eye doctor. He was also asked to follow-up with his primary care doctor. On the day of discharge, patient was seen and examined. Denied any new complaints. Physical Exam Narrative Physical exam: General: Alert, Oriented x3, Cooperative HEENT: Atraumatic Oral: Moist Mucosa Neck: Supple Lungs: Clear to auscultation Cardiovascular: HS I+II, regular, no murmurs Abdomen: Bowel Sounds Present, Soft, Non Tender Extremities: No edema Skin: No rashes, No breakdown Neurological: Grossly intact Psych/Mental Status: Appropriate Weight / BMI Weight Weight: 101.5 kg Body Mass Index (BMI) 30.3 ABG / Lab / Microbiology Data Result Diagrams: 09/15/22 04:10 09/15/22 04:10 Laboratory: Laboratory Results - last 24 hr 09/14/22 18:40: WBC 3.7 L, RBC 3.85 L, Hgb 12.2 L, Hct 36.9 L, MCV 95.8 H, MCH 31.7, MCHC 33.1, RDW Std Deviation 48.0 H, RDW Coeff of Alice 13.6, Plt Count 140 L, MPV 9.3, Immature Gran % (Auto) 0.500, Neut % (Auto) 56.1, Lymph % (Auto) 28.2, [place] % (Auto) 13.3 H, Eos % (Auto) 1.4, Baso % (Auto) 0.5, Absolute Neuts (auto) 2.1, Absolute Lymphs (auto) 1.04, Nucleated RBC % 0, ESR 33 H 09/14/22 18:40: PT 13.3, INR 1.0, APTT 35.0 09/14/22 18:40: Sodium 132 L, Potassium 3.8, Chloride 102, Carbon Dioxide 24.0, Anion Gap 6, BUN 23 H, Creatinine 1.57 H, Estim Creat Clear Calc 41.88, Est GFR (MDRD) Af Amer 55 L, Est GFR (MDRD) Non-Af 45 L, BUN/Creatinine Ratio 14.6, Glucose 145 H, Calcium 8.5, Troponin I High Sens 8, C-React Prot Ext Range 31.40 H 09/15/22 04:10: WBC 3.1 L, RBC 3.58 L, Hgb 11.3 L, Hct 34.2 L, MCV 95.5 H, MCH 31.6, MCHC 33.0, RDW Std Deviation 47.6 H, RDW Coeff of Alice 13.6, Plt Count 121 L, MPV 9.6, Immature Gran % (Auto) 1.000 H, Neut % (Auto) 48.4, Lymph % (Auto) 27.1, Independence % (Auto) 20.6 H, Eos % (Auto) 1.9, Baso % (Auto) 1.0, Absolute Neuts (auto) 1.5 L, Absolute Lymphs (auto) 0.84, Nucleated RBC % 0 09/15/22 04:10: Sodium 133 L, Potassium 4.2, Chloride 101, Carbon Dioxide 24.0, Anion Gap 8, BUN 25 H, Creatinine 1.52 H, Estim Creat Clear Calc 43.25, Est GFR (MDRD) Af Amer 57 L, Est GFR (MDRD) Non-Af 47 L, BUN/Creatinine Ratio 16.4, Glucose 108 H, Calcium 8.1 L, Triglycerides 160, Cholesterol 153, LDL Cholesterol 91, VLDL Cholesterol 32, HDL Cholesterol 30 L Radiography Diagnostic Testing: Radiology Impression Brain CT 09/14/22 18:29 IMPRESSION: There are no acute findings. Chronic involutional changes of the brain. Electronically Signed: Zeb Franz MD at 19:53 EST , ADDENDUM: 09/14/222000 IMPRESSION: There are no acute findings. Chronic involutional changes of the brain. N.B. : The above Results were Read Back by Zeb Franz MD to PEREZ MURDOCK MD, and understanding confirmed on 09/14/2022 19:55:04 (ET). Electronically Signed: Zeb Franz MD at 19:53 EST , Head/Neck CTA 09/14/22 18:29 IMPRESSION: 1. There is mild atherosclerotic plaque formation of the origin of the right internal carotid artery with less than 50% cross sectional diameter stenosis. ALL ABOVE CRITERIA BY NASCET. 2. There is calcified plaque formation of the right cavernous carotid artery, with a mild stenosis (less than 50%). ALL ABOVE CRITERIA BY NASCET. 3. There is calcified plaque formation of the left cavernous carotid artery, with a mild stenosis (less than 50%). ALL ABOVE CRITERIA BY NASCET. Electronically Signed: Zeb Franz MD at 20:03 EST , ADDENDUM: 09/14/222010 IMPRESSION: 1. There is mild atherosclerotic plaque formation of the origin of the right internal carotid artery with less than 50% cross sectional diameter stenosis. ALL ABOVE CRITERIA BY NASCET. 2. There is calcified plaque formation of the right cavernous carotid artery, with a mild stenosis (less than 50%). ALL ABOVE CRITERIA BY NASCET. 3. There is calcified plaque formation of the left cavernous carotid artery, with a mild stenosis (less than 50%). ALL ABOVE CRITERIA BY NASCET. N.B. : The above Results were Read Back by Zeb Franz MD to PEREZ MURDOCK MD, and understanding confirmed on 09/14/2022 20:04:33 (ET). Electronically Signed: Zeb Franz MD at 20:03 EST , Chest X-Ray 09/14/22 19:25 IMPRESSION: There are no acute findings. Electronically Signed: Zeb Franz MD at 19:44 EST , Carotid Duplex 09/14/22 22:38 Interpretation Summary Smooth plaque at the proximal right internal carotid with <50% stenosis Less than 50% stenosis right external carotid Intimal thickening at the proximal left internal carotid artery with less than 50% stenosis Less than 50% stenosis left external carotid artery Patent and antegrade vertebral arteries bilaterally Ordering Physician: Jakub Powell Referring Physician: Oumou Mena Performed By: Lupe Fountain, CORICS, RVT Brain MRI 09/15/22 06:00 IMPRESSION: 1. Involutional changes of the brain, as described above. 2. No demonstrated acute infarct or intracranial hemorrhage. Electronically Signed: Sunil Bruner MD at 10:40 EST Reading Location ID and State: [address] [place] [address] , Service support , D/C Instructions Discharge Diet: Low fat / Low cholesterol and 2000 mg Sodium Diet Meaningful Use Info Meaningful Use Diagnoses (Choose all that apply): None applicable Discharge Plan Admission Admit Date/Time: 09/14/22 20:52 Primary Reason for Your Visit: TIA Attending Provider: Perla Salinas Primary Care Provider: Oumou Mena Consulting Providers: Jakub Powell Instructions Additional Instructions / Restrictions: Take note of your new medication Follow a low-salt, low-fat diet Follow-up with your primary care doctor within 1 week Follow-up with your bus greaser as scheduled Discharge Orders/Prescriptions Prescriptions: New aspirin 81 mg Tablet,Chewable 81 mg PO BREAKFAST 30 Days Qty: 30 0RF atorvastatin 40 mg tablet 40 mg PO DAILY 30 Days Qty: 30 0RF Continued albuterol sulfate 1 INHALER inhaler 1 puff inhalation Q4H PRN PRN (Reason: Shortness Of Breath) Label Comments: breathing budesonide-formoterol [Symbicort] 80-4.5 mcg/actuation Hfa Aerosol Inhaler 1 inh INHALATION DAILY modafinil 200 mg Tablet 200 mg PO DAILY mecobalamin (vitamin B12) [B12 Active] 1,000 mcg Tablet,Chewable 1,000 mcg PO QODAY amlodipine 2.5 mg tablet 2.5 mg PO DAILY Qty: 90 3RF Referrals / Follow Up: Oumou Mena MD [Primary Care Provider] - Disposition Disposition (needs filled in before D/C Order can be placed): Home, Self Care Charges/Coding Visit Charges Inpatient E&M: 79962 Disch Hosp >30min
--- NOTE | 2022-09-15 14:03 | CASEMGMT ---
Patient has discharge order enter. RN CM in to room to inquire about needs at discharge. Patient denies needs or concerns at discharge. Patient had no further questions or concerns at this time.
[2022-09-15 15:20] VITALS: BP 130/67; PULSE 77; RESP 20; TEMP 36.3; O2SAT 94
== END 2022-09-15 13:44 | disposition home or self-care (01) ==
LOC: ED 18:59 → PCU 21:03
PROVIDERS: Admitting Provider Hospitalist; Emergency Provider Emergency Medicine; PCP Internal Medicine; Visit Provider Internal Medicine
DX: G45.3 Amaurosis fugax (principal); D61.818 Other pancytopenia; C66.9 Malignant neoplasm of unspecified ureter; E66.9 Obesity, unspecified; N18.9 Chronic kidney disease, unspecified; R79.82 Elevated C-reactive protein (CRP); I12.9 Hypertensive chronic kidney disease with stage 1 through stage 4 chronic kidney disease, or unspecified chronic kidney disease; Z79.51 Long term (current) use of inhaled steroids; G47.30 Sleep apnea, unspecified; Z79.899 Other long term (current) drug therapy; J45.909 Unspecified asthma, uncomplicated; Z68.30 Body mass index [BMI] 30.0-30.9, adult
CPT/HCPCS: 36591; 70450; 70496; 70498; 70551; 71045; 80048; 80061; 84484; 85025; 85610; 85652; 85730; 86140; 93005; 93306; 93880; 94640; 94762; 96372; 99221; 99284; Q9967; A4216; G0378

== ENCOUNTER → 2022-09-25 | Outpatient (CLI) | payer MEDICARE, OTHER, SELFPAY ==
[2022-09-25 09:55] LABS: Bacteria 0 SEEN /hpf (None Seen); Mucous, Urine 0 SEEN /hpf (<or=2+); Squamous Epithelial Cells - UA 0 SEEN /hpf (0-5)
[2022-09-25 10:23] LABS: Color, Urine Yellow (Yellow); Glucose, Dipstick Normal (Normal); Ketone-Dipstick Negative (Negative); Leukocyte Esterase-Dipstick 25 /ul (Negative); Nitrite-Dipstick Negative (Negative); Occult Blood-Urine 250 /ul (Negative); Protein-Dipstick 30 mg/dl (Negative); Specific Gravity, Urine 1.015 (1.002-1.030); Urine Bilirubin Dipstick Negative (Negative); Urine Clarity Sl. Cloudy (Clear); Urine Urobilinogen Normal (Normal)
[2022-09-25 10:31] LABS: Red Blood Cells-Urine 25-50 SEEN /hpf (0-5); White Blood Cells 0-5 SEEN /hpf (0-5)
[2022-09-25 10:38] LABS: Erythrocyte Sedimentation Rate 24 mm/hr (0-20)
[2022-09-25 10:41] LABS: Absolute Lymphocyte Count 0.69 X10^3/uL (0.83-4.51); Absolute Neutrophil Count 1.5 X10^3/uL (2.0-7.7); Basophil# 0.02 X10^3/uL; Basophil% 0.8 % (0-1); Eosinophil# 0.04 X10^3/uL; Eosinophils% 1.5 % (0-5); Hematocrit 37.1 % (40-54); Hemoglobin 12.3 g/dL (13.0-16.5); Lymphocyte # 0.69 X10^3/ul (0.83-4.51); Lymphocyte % 26.1 % (19-41); Mean Corp Hgb Conc 33.2 g/dL (32-36); Mean Corpuscular Hgb 31.8 pg (27.0-32.0); Mean Corpuscular Volume 95.9 fL (80-94); Mean Platelet Vol. 9.5 fl (6.2-12.0); Monocyte# 0.38 X10^3/uL; Monocyte% 14.4 % (0-10); NRBC Flagged by Analyzer 0 % (0-5); Neutrophil % 56.8 % (47-70); Platelet Count 151 K/mm3 (150-450); RBC Distribution Width CV 13.5 % (11.6-14.6); RBC Distribution Width SD 47.7 fl (35.1-43.9); Red Blood Count 3.87 M/mm3 (4.6-6.2); White Blood Count 2.6 K/mm3 (4.4-11.0)
[2022-09-25 10:57] LABS: ALB/GLOB Ratio 0.8 RATIO (0.9-2.4); AST(SGOT) 45 U/L (15-37); Alanine Aminotransfer ALT/SGPT 79 U/L (16-61); Albumin, Serum 3.4 g/dL (3.2-5.0); Alkaline Phosphatase 153 U/L (45-117); Anion Gap 11 (5-15); BUN 20 mg/dL (7-18); BUN/Creat Ratio 13.3 RATIO (10-20); Calcium,Total 8.7 mg/dL (8.5-10.1); Chloride 99 mmol/L (98-107); EST Glomerular Filtration Rate 48 mL/min (>60); Est Glom Filt Rate - Afr Amer 58 mL/min (>60); Globulin 4.2 g/dL (2.2-4.2); Glucose 114 mg/dL (74-106); Potassium 4.1 mmol/L (3.5-5.1); Protein, Total 7.6 g/dL (6.4-8.2); Sodium Level 135 mmol/L (136-145)
== END | disposition home or self-care (01) ==
PROVIDERS: PCP Internal Medicine; Referring Provider Internal Medicine; Visit Provider Internal Medicine
DX: I10 Essential (primary) hypertension (principal); C66.9 Malignant neoplasm of unspecified ureter; R50.9 Fever, unspecified
CPT/HCPCS: 36415; 36592; 80053; 81001; 85025; 85652; 86140; 87015; 87040; 87116; 87206; A4216

== ENCOUNTER → 2022-09-26 | Outpatient (CLI) | payer MEDICARE, OTHER, SELFPAY | END | disposition home or self-care (01) | PROVIDERS: PCP Internal Medicine; Referring Provider Internal Medicine; Visit Provider Internal Medicine | DX: Z45.2 Encounter for adjustment and management of vascular access device (principal); D61.818 Other pancytopenia; R79.89 Other specified abnormal findings of blood chemistry; R50.9 Fever, unspecified | CPT/HCPCS: 36415; 36591; 87015; 87116; 87206; A4216 ==

== ENCOUNTER → 2022-09-27 | Outpatient (CLI) | payer MEDICARE, OTHER, SELFPAY ==
--- NOTE | 2022-09-27 | FLU_PTH ---
PATIENT: KASSI MARCIAL LOC: U#:[id number] AGE/SX: 81/M ROOM: RE09/27/[address]: Dr. Oumou Mena MD : 1940 BED: DIS: 09/27/2022 SPEC #: [id number] RECD: 09/27/22 09:40 STATUS: JASWANT REQ #: [id number] FRIDA: 09/27/22 00:[address]: Yoel Curry DEPT: CYTOLOGY RECD BY: Ada Crespo ENTERED: 09/27/22 09:40 SP TYPE: Fluid OTHR DR: Dr. Oumou Mena MD Tissues: Urine Procedures: Special Stain Group II Special Stain Group I Surgery Specimen Level IV AFB Stain (control) Cytospin Fluid HEADER OPERATION: Not noted PRE-OP DIAGNOSIS: Fever, history bladder cancer TISSUE SUBMITTED: Urine for cytology DIAGNOSIS CYTOLOGY Urine for cytology (cytospin and cell block): Negative for high-grade urothelial carcinoma (NHGUC), Teresa System Category II. Acute inflammation. Negative for acid fast bacilli. See comment. AM:shantel 09/28/2022 COMMENT AFB stain with matched control supports the above diagnosis. The Teresa System for urine cytology diagnostic categorization was used in the evaluation of this case. CYTOLOGY STUDY Slides are reviewed. CYTOLOGY GROSS Received is 80 ml of hazy yellow fluid labeled with the patient's name and and designated per the requisition as urine. Submitted for cytology and cell block preparation. / shantel 09/27/2022 TC:2 CPT: 25264, 41577, 45804
--- NOTE | 2022-09-27 07:19 | US_ITS ---
STUDY: ABDOMINAL ULTRASOUND - RIGHT UPPER QUADRANT REASON FOR VISIT: Male, 81 years old Elevated lft, fever, recent BCG -- S/P CHOLECYSTECTOMY TECHNIQUE: Ultrasound evaluation of the right upper quadrant was performed with real-time and static holly-scale imaging. TECHNICAL QUALITY: Adequate. COMPARISON: None. FINDINGS: Liver: The liver is enlarged and measures 19.3 cm. There is increased echogenicity consistent with fatty infiltration. The bile ducts are within normal limits. There is hepatic color flow. The direction of portal flow is hepatopetal. There are 3 small echogenic nodules scattered throughout the right lobe of the liver. The largest measures 1.3 cm x 11.1 cm x 0.9 cm. This is in the dome of the right lobe of the liver. Gallbladder: The patient is status post cholecystectomy. Common Bile Duct (C.B.D.): The common bile duct measures 5.7 mm. Pancreas: Normal size of the head, body and tail of the pancreas. There is increased echogenicity of the pancreas. There is no demonstrated pancreatic mass or cyst. Right Kidney: Normal size of the right kidney. The right kidney measures 11.5 cm x 6 cm x 7.1 cm. Normal renal cortex. The right cortex measures 1.4 cm. There is a 3.5 cm x 4.5 cm x 2.6 cm right renal cyst. Moderate degree of right hydronephrosis. US/Liver IMPRESSION: Moderate to marked degree of right hydronephrosis. Fatty infiltration of the liver. Hepatomegaly. 3 echogenic nodules are seen in the liver as described. These may represent hemangiomas. Electronically Signed: Lionel Emmanuel MD at 9:07 EST ,
[2022-09-27 09:07] LABS: Acid Fast Stain SEE PATHOLOGY REPORT
[2022-09-28 20:19] LABS: EBV Acute VCA IgM < 36.0 U/mL (0.0-35.9); EBV Early Antigen IgG <9.0 U/mL (0.0-8.9); EBV-VCA IgG > 600.0 U/mL (0.0-17.9)
== END | disposition home or self-care (01) ==
PROVIDERS: Internal Medicine Infectious Disease; PCP Internal Medicine; Referring Provider Internal Medicine; Visit Provider Internal Medicine
DX: R50.9 Fever, unspecified (principal); D61.818 Other pancytopenia; R79.89 Other specified abnormal findings of blood chemistry; N13.30 Unspecified hydronephrosis; K76.0 Fatty (change of) liver, not elsewhere classified; R16.0 Hepatomegaly, not elsewhere classified
CPT/HCPCS: 36591; 76705; 86663; 86664; 86665; 88108; 88305; 88312; 88313; A4216

== ENCOUNTER → 2022-10-03 | Outpatient (CLI) | payer MEDICARE, OTHER, SELFPAY ==
[2022-10-03 09:25] LABS: ALB/GLOB Ratio 0.9 RATIO (0.9-2.4); AST(SGOT) 43 U/L (15-37); Alanine Aminotransfer ALT/SGPT 80 U/L (16-61); Albumin, Serum 3.3 g/dL (3.2-5.0); Alkaline Phosphatase 164 U/L (45-117); Anion Gap 4 (5-15); BUN 19 mg/dL (7-18); BUN/Creat Ratio 11.9 RATIO (10-20); Calcium,Total 8.5 mg/dL (8.5-10.1); Chloride 104 mmol/L (98-107); EST Glomerular Filtration Rate 44 mL/min (>60); Est Glom Filt Rate - Afr Amer 54 mL/min (>60); Globulin 3.8 g/dL (2.2-4.2); Glucose 146 mg/dL (74-106); Potassium 4.3 mmol/L (3.5-5.1); Protein, Total 7.1 g/dL (6.4-8.2); Sodium Level 134 mmol/L (136-145)
[2022-10-03 17:01] LABS: Xtra Tube EP Lab EXTRA TUBE
== END | disposition home or self-care (01) ==
LOC: MEDOUTP 08:44
PROVIDERS: PCP Internal Medicine; Referring Provider Internal Medicine; Visit Provider Internal Medicine
DX: Z45.2 Encounter for adjustment and management of vascular access device (principal); R79.89 Other specified abnormal findings of blood chemistry
CPT/HCPCS: 36591; 80053; A4216

== ENCOUNTER → 2022-10-19 | Outpatient (CLI) | payer MEDICARE, OTHER, SELFPAY ==
[2022-10-19 10:34] LABS: Absolute Lymphocyte Count 0.63 X10^3/uL (0.83-4.51); Absolute Neutrophil Count 2.5 X10^3/uL (2.0-7.7); Basophil# 0.03 X10^3/uL; Basophil% 0.8 % (0-1); Eosinophil# 0.08 X10^3/uL; Hematocrit 34.1 % (40-54); Hemoglobin 11.1 g/dL (13.0-16.5); Lymphocyte # 0.63 X10^3/ul (0.83-4.51); Mean Corp Hgb Conc 32.6 g/dL (32-36); Mean Corpuscular Hgb 30.8 pg (27.0-32.0); Mean Corpuscular Volume 94.7 fL (80-94); Mean Platelet Vol. 9.1 fl (6.2-12.0); Monocyte# 0.73 X10^3/uL; Monocyte% 18.5 % (0-10); NRBC Flagged by Analyzer 0 % (0-5); Neutrophil # 2.45 X10^3/uL (2.7-7.7); Neutrophil % 62.2 % (47-70); Platelet Count 140 K/mm3 (150-450); RBC Distribution Width CV 14.1 % (11.6-14.6); RBC Distribution Width SD 48.9 fl (35.1-43.9); White Blood Count 3.9 K/mm3 (4.4-11.0)
[2022-10-19 10:56] LABS: Erythrocyte Sedimentation Rate 38 mm/hr (0-20)
[2022-10-19 10:58] LABS: ALB/GLOB Ratio 0.8 RATIO (0.9-2.4); AST(SGOT) 40 U/L (15-37); Alanine Aminotransfer ALT/SGPT 71 U/L (16-61); Albumin, Serum 3.3 g/dL (3.2-5.0); Alkaline Phosphatase 139 U/L (45-117); Anion Gap 8 (5-15); BUN 26 mg/dL (7-18); BUN/Creat Ratio 15.7 RATIO (10-20); Chloride 100 mmol/L (98-107); Creatinine, Serum 1.66 mg/dL (0.70-1.30); EST Glomerular Filtration Rate 43 mL/min (>60); Est Glom Filt Rate - Afr Amer 52 mL/min (>60); Globulin 4.3 g/dL (2.2-4.2); Glucose 113 mg/dL (74-106); Potassium 4.5 mmol/L (3.5-5.1); Protein, Total 7.6 g/dL (6.4-8.2); Sodium Level 134 mmol/L (136-145)
== END | disposition home or self-care (01) ==
LOC: MEDOUTP 09:37
PROVIDERS: PCP Internal Medicine; Referring Provider Internal Medicine; Visit Provider Internal Medicine
DX: Z45.2 Encounter for adjustment and management of vascular access device (principal); D61.818 Other pancytopenia; R50.9 Fever, unspecified; R79.89 Other specified abnormal findings of blood chemistry
CPT/HCPCS: 36592; 80053; 85025; 85652; 86141; A4216

== ENCOUNTER → 2022-10-27 | Outpatient (CLI) | payer MEDICARE, OTHER, SELFPAY ==
--- NOTE | 2022-10-27 14:27 | STRESSREP ---
Stress Test Report Pharmacologic myocardial perfusion stress test. 81-year-old man for preoperative cardiac evaluation history of SVT. Resting EKG demonstrates sinus rhythm with a rate of 87 bpm. Resting blood pressure is 138/78 mmHg. 0.4 mg of regadenoson was infused per usual protocol followed by rapid intravenous saline flush injection. Continuous EKG monitoring was performed. The maximum heart rate was 97 bpm which was 68% of max impacted heart rate the maximum workload was 1 metabolic equivalent. At rest there were no ST or T wave changes noted to suggest ischemia and at peak infusion nonspecific ST changes were noted which did not meet the criteria for ischemia. No clinical angina is noted. The final blood pressure was 118/76 mmHg. Myocardial perfusion protocol. 14.3 mCi of technetium 99m sestamibi was injected at rest. 0.4 mg of regadenoson was infused per usual protocol. At peak infusion 44.3 mCi of technetium 99m sestamibi was injected stress images were obtained stress and rest images were reconstructed and compared in the short axis vertical long and horizontal long axis. Perfusion SPECT analysis: Review of the stress images demonstrate normal uptake of tracer noted in all areas of the myocardium. The resting images similar demonstrated normal uptake of tracer noted in all areas of the myocardium. No areas of reversibility are noted to suggest ischemia and no previous infarct is noted. Conclusion: Normal pharmacologic myocardial perfusion stress test.
== END | disposition home or self-care (01) ==
LOC: CVS 06:32
PROVIDERS: PCP Internal Medicine; Visit Provider Internal Medicine Cardiovascular Disease
DX: Z01.810 Encounter for preprocedural cardiovascular examination (principal); I25.10 Atherosclerotic heart disease of native coronary artery without angina pectoris
CPT/HCPCS: 78452; 93017; A9500; A4216; J2785

== ENCOUNTER 2022-11-24 09:55 | Inpatient (IN) | payer MEDICARE, OTHER, SELFPAY ==
[2022-11-24] VITALS (8 sets, daily range): BP systolic 122–148; BP diastolic 66–81; PULSE 82–93; RESP 14–18; TEMP 36.9–38.2; O2SAT 95–100; BMI 28.5
[2022-11-24] MEDS: Lactated Ringers 1,000 ML 15 ML IV (10:46)
--- NOTE | 2022-11-24 13:13 | HP.PCM_ITS ---
HPI - General General Date of Admission: 11/24/22 HPI Narrative KASSI MARCIAL, is a 81 M who presents for transurethral resection of multiple bladder tumors, right ureteroscopy, and they are working to proceed with a right nephro ureterectomy and removal of the right kidney and remaining ureter for ureteral carcinoma with sarcomatoid differentiation. [facility] Medical History Anemia Asthma Asthma AVNRT (AV castro re-entry tachycardia) Brain TIA Cancer Cancer of ureter Cardiology follow-up encounter CINV (chemotherapy-induced nausea and vomiting) CPAP (continuous positive airway pressure) dependence CRF (chronic renal failure) Elevated LFTs Encounter for adjustment and management of vascular access device Encounter for chemotherapy management Encounter for education Encounter for insertion of venous access port Essential (primary) hypertension Fever Frequent unifocal premature ventricular contractions (02/2020) History of echocardiogram History of edema History of stress test Mallet finger of left finger(s) Myelosuppression Narcolepsy Non-smoker Obesity (BMI 30.0-34.9) Osteoarthritis Pancreatitis Pancytopenia Pancytopenia Skin cancer Sleep apnea Wears glasses Home Medications mecobalamin (vitamin B12) 1,000 mcg chewable tablet (B12 Active) 1,000 mcg PO QODAY SUPPLEMENT 09/14/22 [History Last Taken 11/23/22] modafinil 200 mg tablet 200 mg PO DAILY seizures 09/14/22 [History Last Taken 11/23/22] albuterol sulfate 90 mcg/actuation aerosol inhaler 2 puff inhalation Q4H PRN ASTHMA 10/20/22 [History Last Taken Unknown] amlodipine 2.5 mg tablet 2.5 mg PO DAILY BP #90 tabs 11/01/22 [Rx Last Taken 11/24/22] aspirin 81 mg chewable tablet 81 mg PO BREAKFAST SUPPLEMENT 11/17/22 [History Last Taken 11/13/22] ibuprofen 200 mg tablet 400 mg PO Q8H pain 11/24/22 [History Last Taken 11/23/22] Allergy/AdvReac Type Severity Reaction Status Date / Time Penicillins Allergy Unknown Verified 11/24/22 10:32 Sulfa (Sulfonamide Allergy Unknown Verified 11/24/22 10:32 Antibiotics) Family History Mother CAD (coronary artery disease) Father Cancer Other CVA (cerebral vascular accident) Hypertension Surgical History H/O hernia repair H/O knee surgery H/O prostatectomy H/O transurethral resection of prostate History of appendectomy History of cholecystectomy (02/29/20) History of cystoscopy History of ERCP History of malignant neoplasm of ureter (~07/06/21) History of radiofrequency ablation procedure for cardiac arrhythmia (03/17/08) History of removal of Port-a-Cath History of transurethral resection of bladder tumor (TURBT) Hx of cystoscopy Hx of total knee arthroplasty Hx of total knee arthroplasty Social History Smoking Status: Never smoker alcohol intake: never substance use type: does not use what type of physical activity do you participate in: none Vital Signs Vital Signs Vital Signs: 11/24/22 10:36 11/24/22 10:36 Temperature 99.3 F H Temperature Source Temporal Pulse Rate 88 Respiratory Rate 18 Respiratory Pattern Normal Blood Pressure 125/67 H Blood Pressure Mean 86 Blood Pressure Source Monitor Blood Pressure Position Semi-Fowlers Blood Pressure Location Left Arm Pulse Ox 96 Oxygen Delivery Method Room Air Weight Weight: 95.7 kg Body Mass Index (BMI) 28.5
[2022-11-24] MEDS: Cefazolin 2 GM in 0.9% Normal Saline 100 ML IV (13:21)
--- NOTE | 2022-11-24 14:37 | PCM.DC ---
Discharge Instructions Diet Discharge Diet: No restrictions, Light diet - advance as tolerated and Soft diet Activity Discharge Activity: Return to Normal Activity Dressing / Incision Catheter: Rivero to leg bag and Rivero to large bag Drain: Streetman Follow Up Care Please Follow Up With: Jae Magaña MD When: 2 weeks with rivero to gravity Test Results: Test results from this visit will be discussed in further detail at your follow-up appointment, if applicable. Discharge Plan Admission Admit Date/Time: 11/24/22 09:55 Attending Provider: Jae Magaña Primary Care Provider: Oumou Mena Discharge Orders/Prescriptions Prescriptions: New oxycodone-acetaminophen [Endocet] 5-325 mg tablet 1 tab PO Q6H PRN (Reason: pain) 7 Days Qty: 20 0RF ciprofloxacin HCl [Cipro] 500 mg tablet 500 mg PO BID Qty: 14 0RF Continued albuterol sulfate 90 mcg/actuation HFA aerosol inhaler 2 puff inhalation Q4H PRN (Reason: ASTHMA) modafinil 200 mg Tablet 200 mg PO DAILY mecobalamin (vitamin B12) [B12 Active] 1,000 mcg Tablet,Chewable 1,000 mcg PO QODAY ibuprofen 200 mg Tablet 400 mg PO Q8H amlodipine 2.5 mg tablet 2.5 mg PO DAILY Qty: 90 3RF Discontinued aspirin 81 mg tablet,chewable 81 mg PO BREAKFAST Referrals / Follow Up: Oumou Mena MD [Primary Care Provider] -
--- NOTE | 2022-11-24 14:38 | OP.PCM_ITS ---
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 At the time of the surgery the ureter was significantly adherent to the iliac artery very difficult to tease the ureter off the artery. And then we did a psoas hitch and her ureteral implantation. The margins on the ureter resection came back positive. He did then underwent 6 cycles of chemotherapy. And now we plan to proceed with a completion nephro ureterectomy removal of the psoas hitch and removal of the kidney and the rest of the ureter. The patient was taken back to the operating room at the smooth induction of general anesthesia he was placed supine on the table we then placed the patient in dorsolithotomy position. The penis and testicles were prepped and draped in usual sterile fashion I first dilated the meatus and went into the bladder with a 26 [place] Olympus bipolar resectoscope prior to this procedure I done an office cystoscopy and at that point that demonstrated just a few small superficial looking papillary tumors within the bladder the psoas hitch looked nice and open and the bladder looked mostly clean except for a few papillary tumors. So my initial impression was to do a resection of these papillary tumors and then proceed with a nephro ureterectomy and removal of the psoas hitch. When I got into the bladder I did see 1 papillary tumor in the lateral sidewall but then I went and looked up towards the area of the psoas hitch there was a very large sessile hard looking invasive mass which looked like an invasive carcinoma that had invaded into the bladder. I started resecting this mass knowing that this was a recurrence of his ureteral cancer within the bladder but immediately ended up having significant bleeding so was not able to do a complete resection but I resected enough tissue to probably confirm recurrence of disease with very aggressive recurrence after 6 cycles of chemotherapy. I had to cauterize for a long time to get the mass to stop bleeding again I was concerned about continued to do more deep resection as a get into the significant bleeding so I did resect a very large mass but was not able to get the entire mass resected. In my opinion after looking at this I think the only option for him if the patient is not metastatic is to have a nephro ureterectomy and also cystectomy at the same time. 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 So I decided not to proceed with the planned nephro ureterectomy we can go talk to the family explain why I think the patient would require nephro ureterectomy plus a cystectomy in order to remove the entire cancer. In the preoperative setting the patient I had discussed just doing a diagnostic cystoscopy and ureteroscopy but he wanted to go with completion nephrectomy ureterectomy. But given the findings at this point I stopped after the resection of this mass again I was not able to completely resected because of heavy bleeding took me a long time to cauterize and get the bleeding stopped get a keep the patient in the hospital with continuous bladder irrigation. I will go talk to the family and tell him the unfortunate findings and I will let him know his options. Surgeon: Jae Magaña Type of Anesthesia: General Drains: 22fr 3 way Estimated Blood Loss (mL): 50 Admit VTE Documentation VTE Present on Admission: No VTE Mechan Device Prophylaxis: SCD's VTE Pharm Prophylaxis ordered?: No
--- NOTE | 2022-11-24 15:18 | CT_ITS ---
EXAM: CT CHEST, ABDOMEN AND PELVIS WITH INTRAVENOUS CONTRAST CLINICAL INDICATION: ureteral cancer Ureteral carcinoma, received chemo x1 year ago. Bladder tumor resection. TECHNIQUE: Helically acquired images were obtained of the chest, abdomen and pelvis with intravenous contrast. This CT exam was performed using one or more of the following dose reduction techniques: automated exposure control, adjustment of the mA and/or kV according to patient size, and/or use of iterative reconstruction technique. This report was created using varinode report generation technology. CONTRAST: IV 100mL Isovue-300 RADIATION DOSE: CTDIvol = 20.57 mGy, DLP = 3080.51 mGy-cm COMPARISON: 1.3.23 FINDINGS: CHEST: LUNGS AND PLEURAL SPACES: Stable mild increased linear markings at the lung bases suggestive of scarring. No mass. No pleural effusion or thickening. No pneumothorax. HEART: There are calcifications of the coronary arteries. Heart size is normal. No pericardial effusion. MEDIASTINUM: Unremarkable. No mediastinal or hilar adenopathy. Esophagus is unremarkable. No hiatal hernia. THYROID: Unremarkable. No thyroid lesions. ABDOMEN: LIVER: Stable 0.8 cm hypodensity seen within the inferior lateral aspect of the right lobe of the liver. GALLBLADDER AND BILE DUCTS: There is non-visualization of the gallbladder, which may be secondary to either contraction or a prior cholecystectomy. No intra- or extrahepatic biliary ductal dilation. PANCREAS: Unremarkable. No focal cystic or solid mass. Normal pancreas. SPLEEN: Unremarkable. Normal spleen. ADRENALS: Unremarkable. Normal bilateral adrenal glands. KIDNEYS AND URETERS: Moderate hydronephrosis and hydro ureter caused by a right ureteral mass. The mass is dumbbell shaped and measures 93 x 44mm. It invades the regional midline small bowel and the sigmoid colon. A portion of the mass invades the right side of the urinary bladder. The mass then extends to the anterior abdominal wall at the level of the symphysis pubis. This area measures 42 x 37mm. There are hypodensities in the right kidney. These are consistent for cysts. No follow up required. This is stable. Normal renal size and position. No acute findings of the left kidney. STOMACH AND BOWEL: There is an ileus of the small intestine with mild gaseous distention. No focal inflammatory change. Normal visualized stomach. PELVIS: APPENDIX: There is non-visualization of the appendix. BLADDER: There is a Jennings balloon catheter in the urinary bladder. REPRODUCTIVE: Unremarkable as visualized. No mass. CHEST, ABDOMEN and PELVIS: INTRAPERITONEAL SPACE: Unremarkable. No ascites or other fluid collection. No free air. BONES/JOINTS: There are degenerative changes of the shoulders. There are multi-level degenerative changes of the thoracic spine. There are diffuse degenerative changes of the visualized lumbar spine. No suspicious lytic or blastic abnormality. SOFT TISSUES: Unremarkable. No discrete abdominal or pelvic wall hernia. Normal abdominal wall. VASCULATURE: There is atherosclerotic calcification of the aortic arch with tortuosity and elongation of the aortic arch and descending thoracic aorta. There are calcifications of the abdominal aorta. This is consistent for atherosclerotic disease. There is no abdominal aortic aneurysm. LYMPH NODES: Stable small benign-appearing bilateral axillary lymph nodes. TUBES, LINES AND DEVICES: A right-sided portacatheter is seen with the tip in the superior vena cava. CT/CT Chest, Abd, Pel w/Contrast IMPRESSION: 1. Progression of disease in the pelvis. Moderate hydronephrosis and hydro ureter caused by a right ureteral mass. The mass is dumbbell shaped and measures 93 x 44mm. It invades the regional midline small bowel and the sigmoid colon. A portion of the mass invades the right side of the urinary bladder. The mass then extends to the anterior abdominal wall at the level of the symphysis pubis. This area measures 42 x 37mm. 2. There is an ileus of the small intestine with mild gaseous distention. Electronically Signed: Zeb Franz MD at 17:51 EDT ,
[2022-11-24] MEDS: Ketorolac 15 MG/ML Vial IV (16:16)
[2022-11-24] MEDS: 0.9% Normal Saline 1,000 ML 125 ML IV (16:17)
[2022-11-24 17:35] LABS: CREATININE FINGERSTICK 1.5 mg/dL (0.70-1.30)
[2022-11-24] MEDS: Docusate Sodium 100 MG Capsule 200 MG PO (21:34)
[2022-11-24] MEDS: Ciprofloxacin 400 MG/200 ML BAG 200 MG IV (21:35)
[2022-11-25 00:31] VITALS: BP 127/65; PULSE 81; RESP 18; TEMP 36.9; O2SAT 96
[2022-11-25] MEDS: Ketorolac 15 MG/ML Vial IV ×2 (00:46→09:08)
[2022-11-25] MEDS: 0.9% Normal Saline 1,000 ML 125 ML IV ×2 (00:51→09:02)
[2022-11-25 04:05] VITALS: BP 127/70; PULSE 76; RESP 18; TEMP 36.5; O2SAT 96
[2022-11-25 04:15] VITALS: O2SAT 77
[2022-11-25 04:18] VITALS: O2SAT 96
[2022-11-25 06:39] VITALS: PULSE 74; RESP 18; O2SAT 96
[2022-11-25 07:43] LABS: Hematocrit 28.4 % (40-54); Hemoglobin 8.9 g/dL (13.0-16.5); Mean Corp Hgb Conc 31.3 g/dL (32-36); Mean Corpuscular Volume 95.6 fL (80-94); Mean Platelet Vol. 9.4 fl (6.2-12.0); Platelet Count 167 K/mm3 (150-450); RBC Distribution Width CV 14.8 % (11.6-14.6); RBC Distribution Width SD 52.2 fl (35.1-43.9); Red Blood Count 2.97 M/mm3 (4.6-6.2); White Blood Count 4.6 K/mm3 (4.4-11.0)
[2022-11-25 08:01] LABS: Anion Gap 8 (5-15); BUN 19 mg/dL (7-18); BUN/Creat Ratio 12.1 RATIO (10-20); Calcium,Total 8.2 mg/dL (8.5-10.1); Chloride 100 mmol/L (98-107); Creatinine, Serum 1.57 mg/dL (0.70-1.30); EST Glomerular Filtration Rate 45 mL/min (>60); Est Glom Filt Rate - Afr Amer 55 mL/min (>60); Estimated Creatinine Clearance 41.88 ml/min; Glucose 107 mg/dL (74-106); Potassium 4.2 mmol/L (3.5-5.1); Sodium Level 132 mmol/L (136-145)
--- NOTE | 2022-11-25 08:22 | PCM.PN.GU ---
Objective Data Objective Data Patient did well overnight no issues or problems urine is clear Vital Signs: Vital Signs Temp Pulse Resp BP Pulse Ox O2 Del Method O2 Flow Rate 97.7 F L 74 18 127/70 H 96 Room Air 2 11/25/22 04:05 11/25/22 06:39 11/25/22 06:39 11/25/22 04:05 11/25/22 06:39 11/25/22 06:39 11/25/22 04:18 Oxygen Flow Rate (L/min) 2 Oxygen Delivery Method Room Air Weight: 95.7 kg Body Mass Index (BMI) 28.5 Intake & Output: Intake and Output for Last 24 Hours 11/23/22 11/24/22 11/25/22 23:59 23:59 23:59 Intake Total 1210 / 1210 1700 / 1700 Output Total 5400 / 5400 Balance -4190 / -4190 1700 / 1700 Lab / Micro Data Result Diagrams: 11/25/22 06:56 11/25/22 06:56 Labs: Laboratory Results - last 24 hr 11/24/22 17:13: POC Creatinine 1.5 H, POC Estimated GFR (eGFR) 47.0000 L 11/25/22 06:56: WBC 4.6, RBC 2.97 L, Hgb 8.9 L, Hct 28.4 L, MCV 95.6 H, MCH 30.0, MCHC 31.3 L, RDW Std Deviation 52.2 H, RDW Coeff of Alice 14.8 H, Plt Count 167, MPV 9.4 11/25/22 06:56: Sodium 132 L, Potassium 4.2, Chloride 100, Carbon Dioxide 24.0, Anion Gap 8, BUN 19 H, Creatinine 1.57 H, Estim Creat Clear Calc 41.88, Est GFR (MDRD) Af Amer 55 L, Est GFR (MDRD) Non-Af 45 L, BUN/Creatinine Ratio 12.1, Glucose 107 H, Calcium 8.2 L Micro: Microbiology 11/09/22 08:14 Urine, Clean Catch Urine Culture - Final Culture exhibits no growth. Radiography Diagnostic Testing: Radiology Impression Chest/Abdomen/Pelvis CT 11/24/22 15:18 IMPRESSION: 1. Progression of disease in the pelvis. Moderate hydronephrosis and hydro ureter caused by a right ureteral mass. The mass is dumbbell shaped and measures 93 x 44mm. It invades the regional midline small bowel and the sigmoid colon. A portion of the mass invades the right side of the urinary bladder. The mass then extends to the anterior abdominal wall at the level of the symphysis pubis. This area measures 42 x 37mm. 2. There is an ileus of the small intestine with mild gaseous distention. 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 Given the new findings of a very large mass pushing on the bladder so we proceeded with a CT scan which demonstrates a large recurrent local mass in the pelvis looks like it is involved with the iliac artery also look like involved with the intestines. I explained the situation to the patient today. We will remove the catheter today and he will be discharged home I am in the call my colleagues up in the [facility] and see who he should see for possible wide resection this would be a very difficult surgery this was explained to the patient he is agreeable with getting a second opinion and will go home today for now.
--- NOTE | 2022-11-25 08:45 | CASEMGMT ---
MALIK BENAVIDES Face to Face with patient for initial transition planning/care coordination assessment. RN CM introduced self and role at [facility]. Patient lying in bed, alert and oriented. Patient willing to participate in assessment and is able to answer all questions appropriately. Care providers, pharmacy, and demographics verified. Patient wishes to discharge home, denies need for home health at this time. Patient states he has no further needs or concerns at this time. CM to follow for discharge planning needs that may arise. PCP: Rajesh Specialists: Archana, urologist; Patient follows at both [place] and [facility] Preferred Pharmacy: [facility] Insurance: [employer] Prescription Benefit: yes Living Will/HPOA: yes, Alexus Aceves LNOK: , daughter Living Arrangements: Patient lives with in a 2 story home with bed and bath on first floor. 5 steps and railing to enter the home. Patient states he is independent at home. Transportation: self, DME/HHC: Patient states he has shower chair, raised toilet, grab bars, and cpap at home. No previous HHC or SNF. Disposition Plan: Patient to discharge home with family support and follow-up plans in place. Beatriz MIKE, RN, CM
[2022-11-25 09:00] VITALS: BP 119/70; PULSE 84; RESP 18; TEMP 36.8; O2SAT 96
[2022-11-25] MEDS: Docusate Sodium 100 MG Capsule 200 MG PO (09:15)
[2022-11-25] MEDS: Ciprofloxacin 400 MG/200 ML BAG 200 MG IV (09:15)
[2022-11-25] MEDS: amLODIPine 2.5 MG Tablet PO (09:16)
[2022-11-25] MEDS: 0.9 % NaCl (Sterile) Posiflush 10 mL IV (10:39)
--- NOTE | 2022-11-26 | IMM_PTH ---
PATIENT: KASSI MARCIAL LOC: 3 U#:[id number] AGE/SX: 81/M [place] [facility] [place]24/[address]: Dr. Jae Magaña MD : 1940 BED: 1 DIS: 11/25/2022 SPEC #: [id number] RECD: 11/28/22 13:42 STATUS: JASWANT REOdell #: [id number] FRIDA: 11/26/22 00:[address]: Jae Magaña DEPT: IMMUNOHISTOCHEMISTRY RECD BY: Nancy Maza ENTERED: 11/28/22 13:43 SP TYPE: IMMUNO OTHR DR: Dr. Oumou Mena MD Tissues: Urinary bladder, NOS Procedures: CD31 (add) Factor VIII (initial) PHYSICIAN & INSTITUTION [place] [id number] SPECIMEN INFORMATION: Tissue Source: Bladder tumor Clinical Info: Bladder tumor Specimen Number: [id number] #2 CPT code: 34301, 66848 METHODOLOGY: Deparaffinized sections of prefer/formalin-fixed tissue or PAP/DQ stained slides are incubated with monoclonal/polyclonal antibodies/oligonucleotide probes. Localization is made via biotin free immunoperoxidase method. Appropriate controls are performed and reacted as expected. Results on target cell population are indicated in the following table: RESULTS: ANTIBODY / CLONE RESULT Block 2 Factor VIII (R Ag) positive CD31 (HANNAH/70A) positive These tests were developed and their performance characteristics determined by [facility]. They may not have been cleared or approved by the U.S. Food and Drug Administration. The FDA has determined that such clearance or approval is not necessary. The above immunohistochemical/dualISH markers are ordered and reviewed by the Pathologist. INTERPRETATION: Bladder tumor, transurethral resection: Positive for angiolymphatic invasion. PANTERA:shantel 11/29/2022 Case has been reviewed in consultation with Dr. Morrow who concurs with the above diagnosis. IDC:AM
--- NOTE | 2022-11-26 12:20 | BLB_PTH ---
PATIENT: KASSI MARCIAL LOC: MS3 U#:[id number] AGE/SX: 81/M [place] [facility] [place] RE11/24/[address]: Dr. Jae Magaña MD : 1940 BED: 1 DIS: 11/25/2022 SPEC #: [id number] RECD: 11/26/22 17:03 STATUS: JASWANT ISABEL #: [id number] FRIDA: 11/26/22 12:[address]: Jae Magaña DEPT: SURGICAL PATHOLOGY RECD BY: Lilian Corbett ENTERED: 11/27/22 09:30 SP TYPE: TURB OTHR DR: Dr. 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 See cancer summary in the comment section. 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 Percentage of squamous differentiation: 80% Associated epithelial lesions: None identified Histologic grade: Urothelial carcinoma - high grade 3/3 Squamous cell carcinoma ? grade 2-3, moderate to poorly differentiated. Tumor configuration: Invasive Muscularis propria presence: Muscularis propria (detrusor muscle) is present and involved by tumor. Lymphvascular invasion: present. Tumor extension: Tumor invades muscularis propria. Additional pathologic findings: Focal tumor necrosis and chronic inflammation. The above summary is in compliance with [employer] (CAP) Cancer Protocols Checklist and [place] Joint Committee on Cancer (AJCC), Staging Manual, 8th Ed. Immunohistochemistry ([id number]) supports the diagnosis of angiolymphatic invasion. 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 and ([id number]) right ureter with lymph nodes, segmental excision with diagnosis of ?infiltrating carcinoma consistent with urothelial origin? 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 Case has been reviewed in consultation with Dr. Morrow who concurs with the above diagnosis. IDC:AM MICROSCOPIC DESCRIPTION Slides are reviewed. GROSS DESCRIPTION Received in fixative is one container labeled with the patient's name and designated bladder tumor. The specimen consists of multiple irregular fragments of brown soft tissue that in aggregate measure 4.0 x 3.0 x 0.3 cm. The specimen is totally submitted in two cassettes. / PANTERA:shantel 11/27/2022 TC:0 CPT: 37116
== END 2022-11-25 13:54 | disposition home or self-care (01) | DRG 669 ==
LOC: ACINP 10:06 → MS3 15:34
PROVIDERS: Admitting Provider Urology; PCP Internal Medicine; Referring Provider Urology; Visit Provider Urology
PROC: 0TBB8ZZ Excision of Bladder, Via Natural or Artificial Opening Endoscopic (ICD-10-PCS; 2022-11-24 12:00)
DX: C79.11 Secondary malignant neoplasm of bladder (principal); C66.1 Malignant neoplasm of right ureter; I12.9 Hypertensive chronic kidney disease with stage 1 through stage 4 chronic kidney disease, or unspecified chronic kidney disease; N18.9 Chronic kidney disease, unspecified; Z53.9 Procedure and treatment not carried out, unspecified reason; Z79.82 Long term (current) use of aspirin; Z79.899 Other long term (current) drug therapy; Z92.21 Personal history of antineoplastic chemotherapy
CPT/HCPCS: 71260; 74177; 80048; 85027; 87086; 88307; 88341; 88342; 94668; 99252; J7030; J7120; Q9967; A4216; G0463; J0744; J2405